=== PATIENT | female | born 1995 | race Caucasian/White ===

== ENCOUNTER 2016-05-25 09:42 | Inpatient (IN) | payer OTHER, MEDICAID ==
[~2016-05-25] VITALS: Ht 167.6 cm; Wt 68.0 kg
[~2016-05-25 09:42] MED LIST: ALBU0.084 IN; ALBUAER3 IN; FLUT1INH6 IN; LEVA1.2512 NEB; MON10T PO; PRED-188 PO
[2016-05-25] MEDS ORDERED: SODIUM CHLORIDE 0.9% 1,000 ML IVB ONE (11:00)
[2016-05-25] MEDS ORDERED: ALBUTEROL SULF 2.5 MG/0.5ML(0.5%) NEB SOLN NEB STA (11:20)
[2016-05-25] MEDS ORDERED: cefTRIAXone 1GM/50ML D5W 50 ML IV ONE (11:30)
[2016-05-25] MEDS ORDERED: methylPREDNISolone SOD SUCC 125 MG/2 ML VL IV ONE (11:30)
[2016-05-25 12:21] LABS: Basophils # (auto) 0.1 uL; Basophils % (auto) 0.5 % (0.0-2.0); Eosinophils # (auto) 0.3 uL; Eosinophils % (auto) 2.2 % (0.0-7.0); Hematocrit 45.5 % (36.0-46.0); Hemoglobin 14.9 g/dL (12.2-16.2); Lymphocytes # (auto) 2.8 uL; Lymphocytes % (auto) 20.1 % (10.0-50.0); Mean Corpuscular Hemoglobin 29.7 pg (28.0-32.0); Mean Corpuscular Hgb Conc. 32.8 g/dL (32.0-36.0); Mean Corpuscular Volume 90.6 fL (80.0-100.0); Mean Platelet Volume 8.4 fL (7.4-10.4); Monocytes # (auto) 1.3 uL; Monocytes % (auto) 9.4 % (0.0-12.0); Neutrophils # (auto) 9.6 uL; Neutrophils % (auto) 67.8 % (37.0-80.0); Platelet Count (auto) 328 10^3/uL (140-450); Red Cell Distribution Width 14.9 % (11.6-16.0); White Blood Cell 14.1 10^3/uL (4.4-10.8)
[2016-05-25 12:25] LABS: INR 1.02 (0.9-1.15); Partial Thromboplastin Time 27.2 sec (22.64-33.71); Prothrombin Time 10.5 sec (9.37-12.3)
[2016-05-25 12:59] LABS: Urine Bilirubin Negative (Negative); Urine Blood Negative /uL (Negative); Urine Color Yellow (Yellow); Urine Glucose Normal (Normal); Urine Ketone TRACE (Negative); Urine Mucus FEW (None Seen); Urine Nitrite Negative (Negative); Urine RBC 1 /hpf (0 - 4); Urine Squamous Epithelial Cell MOD /hpf (<5); Urine Urobilinogen Normal (Negative); Urine pH 5.5 (5.0-8.0)
[2016-05-25 13:31] LABS: Albumin 4.4 g/dL (3.4-5.0); BUN/Creatinine Ratio 15.2; Bilirubin, Total 0.8 mg/dL (0.2-1.0); Total Protein 7.6 g/dL (6.4-8.2)
[2016-05-25 13:32] LABS: Magnesium 2.2 mg/dL (1.6-2.6)
[2016-05-25] MEDS ORDERED: LORazepam 2MG/ML-1ML VIAL IV ONE (13:45)
[2016-05-25] MEDS ORDERED: HYDROcodone-ACET 10/325MG TAB PO ONE (13:45)
[2016-05-25] MEDS ORDERED: TEMAZEPAM 15 MG CAP PO PRN (14:00)
[2016-05-25] MEDS ORDERED: NITROGLYCERIN 0.4 MG SL TAB SL PRN (14:00)
[2016-05-25] MEDS ORDERED: ACETAMINOPHEN 500 MG TAB PO PRN (14:00)
[2016-05-25] MEDS ORDERED: LACTULOSE 20Gm/30ML SOLN PO PRN (14:00)
[2016-05-25] MEDS ORDERED: OSELTAMIVIR 75 MG CAP PO ONE (14:00)
[2016-05-25] MEDS ORDERED: ALBUTEROL SULF 2.5 MG/0.5ML(0.5%) NEB SOLN NEB PRN (14:00)
[2016-05-25] MEDS ORDERED: MORPHINE SULF INJ 2 MG/ML SYRINGE 1ML IV PRN (14:00)
[2016-05-25] MEDS ORDERED: HYDROcodone-ACET 5/325MG TAB PO PRN (14:00)
[2016-05-25] MEDS: SODIUM CHLORIDE 0.9% 1,000 ML IV SCH (14:02)
[2016-05-25] MEDS ORDERED: methylPREDNISolone SOD SUCC 40 MG/ML VL IV ONE (14:15)
[2016-05-25] MEDS ORDERED: ENOXAPARIN SOD 40 MG/0.4 ML SYRINGE SC ONE (14:15)
[2016-05-25 17:00] VITALS: BP 105/68
[2016-05-25] MEDS: LORazepam 0.5 MG TAB PO PRN ×2 (17:28→23:07)
[2016-05-25] MEDS: methylPREDNISolone SOD SUCC 40 MG/ML VL IV SCH ×2 (17:28→23:08)
[2016-05-25] MEDS ORDERED: IPRATROPIUM BROM 0.5 MG/2.5ML INH SOL NEB SCH (18:00)
[2016-05-25] MEDS: ALBUTEROL SULF 2.5 MG/0.5ML(0.5%) NEB SOLN NEB SCH (20:04)
[2016-05-25] MEDS: MORPHINE SULF INJ 2 MG/ML SYRINGE 1ML IV PRN (21:20)
[2016-05-25] MEDS ORDERED: diphenhdrAMINE HCL 25 MG CAP PO PRN (22:15)
[2016-05-25 22:22] VITALS: BP 115/68
[2016-05-26] MEDS: PROMETHAZINE HCL 25 MG/ML 1ML IV PRN ×2 (01:11→09:24)
[2016-05-26] MEDS: MORPHINE SULF INJ 2 MG/ML SYRINGE 1ML IV PRN ×4 (01:11→09:24)
[2016-05-26] MEDS: ALBUTEROL SULF 2.5 MG/0.5ML(0.5%) NEB SOLN NEB SCH ×3 (02:04→12:45)
[2016-05-26 03:32] VITALS: BP 115/68
[2016-05-26 05:12] VITALS: BP 106/58
[2016-05-26] MEDS: methylPREDNISolone SOD SUCC 40 MG/ML VL IV SCH ×2 (05:21→14:06)
[2016-05-26] MEDS: SODIUM CHLORIDE 0.9% 1,000 ML IV SCH (05:22)
[2016-05-26 08:37] VITALS: BP 111/68
[2016-05-26] MEDS ORDERED: cefTRIAXone 1GM/50ML D5W 50 ML IV SCH (09:00)
[2016-05-26] MEDS ORDERED: OSELTAMIVIR 75 MG CAP PO SCH (10:00)
[2016-05-26] MEDS ORDERED: ENOXAPARIN SOD 40 MG/0.4 ML SYRINGE SC SCH (10:00)
[2016-05-26] MEDS ORDERED: BUDESONIDE (INHALATION) 0.5 MG/2 ML NEB NEB SCH (10:00)
[2016-05-26 12:41] VITALS: BP 113/77
[2016-05-26 15:34] VITALS: BP 113/77
== END 2016-05-26 16:31 | disposition home or self-care (01) | DRG 463 ==
LOC: EDBD 09:42 → ER 09:53 → TELE 09:54 → TELE-EAST 15:56
PROVIDERS: ADMIT Internal Medicine; ATTEND Internal Medicine
DX: N39.0 Urinary tract infection, site not specified (principal); J09.X2 Influenza due to identified novel influenza A virus with other respiratory manifestations; J45.901 Unspecified asthma with (acute) exacerbation; F12.10 Cannabis abuse, uncomplicated; F41.9 Anxiety disorder, unspecified; Z80.0 Family history of malignant neoplasm of digestive organs; Z80.1 Family history of malignant neoplasm of trachea, bronchus and lung; Z80.3 Family history of malignant neoplasm of breast; Z80.41 Family history of malignant neoplasm of ovary; Z80.8 Family history of malignant neoplasm of other organs or systems; Z81.8 Family history of other mental and behavioral disorders; Z82.0 Family history of epilepsy and other diseases of the nervous system; Z82.3 Family history of stroke; Z82.49 Family history of ischemic heart disease and other diseases of the circulatory system; Z82.5 Family history of asthma and other chronic lower respiratory diseases; Z83.3 Family history of diabetes mellitus; Z86.711 Personal history of pulmonary embolism; Z83.511 Family history of glaucoma; Z82.62 Family history of osteoporosis; Z84.89 Family history of other specified conditions; Z88.8 Allergy status to other drugs, medicaments and biological substances; Z79.899 Other long term (current) drug therapy
CPT/HCPCS: 36415; 71010; 80053; 81001; 81025; 83735; 85025; 85379; 85610; 85730; 87081; 87086; 87400; 94640; 94761; 96365; 96372; 96375; 96376; J0696

== ENCOUNTER 2016-06-10 09:31 | Inpatient (IN) | payer OTHER, MEDICAID ==
[~2016-06-10] VITALS: Ht 167.6 cm; Wt 71.1 kg
[2016-06-10] MEDS ORDERED: SODIUM CHLORIDE 0.9% 1,000 ML IVB ONE ×2 (11:15→12:27)
[2016-06-10] MEDS ORDERED: ALBUTEROL SULF 2.5 MG/0.5ML(0.5%) NEB SOLN NEB STA (12:27)
[2016-06-10] MEDS ORDERED: methylPREDNISolone SOD SUCC 125 MG/2 ML VL IM ONE (12:30)
[2016-06-10] MEDS ORDERED: IPRATROPIUM BROM 0.5 MG/2.5ML INH SOL NEB ONE (12:30)
[2016-06-10 12:44] LABS: DEFINITIVE VIEW TRANSMISSION; Hematocrit 42.3 % (36.0-46.0); Hemoglobin 13.7 g/dL (12.2-16.2); Mean Corpuscular Hemoglobin 29.6 pg (28.0-32.0); Mean Corpuscular Hgb Conc. 32.4 g/dL (32.0-36.0); Mean Corpuscular Volume 91.3 fL (80.0-100.0); Mean Platelet Volume 8.4 fL (7.4-10.4); Platelet Count (auto) 273 10^3/uL (140-450); Red Cell Distribution Width 14.9 % (11.6-16.0); White Blood Cell 7.9 10^3/uL (4.4-10.8)
[2016-06-10 13:02] LABS: BUN/Creatinine Ratio 13.8; Calcium 8.4 mg/dL (8.5-10.1); Magnesium 2.2 mg/dL (1.6-2.6); Metamyelocytes % 0; Myelocytes % 0; Potassium 3.8 mmol/L (3.5-5.1); Promyelocytes % 0; Reactive Lymphocytes 0
[2016-06-10 13:13] LABS: Bilirubin, Total 0.7 mg/dL (0.2-1.0)
[2016-06-10 13:24] LABS: Urine Bilirubin Negative (Negative); Urine Color Yellow (Yellow); Urine Glucose Normal (Normal); Urine Ketone Negative (Negative); Urine Nitrite Negative (Negative); Urine RBC 904 /hpf (0 - 4); Urine Squamous Epithelial Cell MOD /hpf (<5); Urine Urobilinogen Normal (Negative); Urine pH 5.5 (5.0-8.0)
[2016-06-10 13:25] LABS: Urine Blood 3+ /uL (Negative)
[2016-06-10] MEDS ORDERED: methylPREDNISolone SOD SUCC 125 MG/2 ML VL IV ONE (13:30)
[2016-06-10 13:32] LABS: INR 0.99 (0.9-1.15); Partial Thromboplastin Time 28.9 sec (22.64-33.71); Prothrombin Time 10.2 sec (9.37-12.3)
[2016-06-10] MEDS ORDERED: ONDANSETRON HCL 4 MG/2 ML VIAL IV ONE (13:45)
[2016-06-10] MEDS ORDERED: MORPHINE SULF INJ 2 MG/ML SYRINGE 1ML IV ONE (13:45)
[2016-06-10 13:53] LABS: Platelet Estimate Adequate
[2016-06-10] MEDS ORDERED: cefTRIAXone 1GM/50ML D5W 50 ML IV ONE (14:15)
[2016-06-10] MEDS ORDERED: ACETAMINOPHEN 325 MG TAB PO PRN (15:00)
[2016-06-10] MEDS ORDERED: DOCUSATE SOD 100 MG CAP PO PRN (15:00)
[2016-06-10] MEDS ORDERED: HYDROcodone-ACET 5/325MG TAB PO PRN (15:00)
[2016-06-10] MEDS ORDERED: LORazepam 2MG/ML-1ML VIAL IV ONE (15:15)
[2016-06-10 16:40] VITALS: BP 132/67
[2016-06-10 17:38] VITALS: BP 103/68
[2016-06-10] MEDS: ONDANSETRON HCL 4 MG/2 ML VIAL IV PRN (17:55)
[2016-06-10] MEDS: MORPHINE SULF INJ 2 MG/ML SYRINGE 1ML IV PRN ×2 (17:55→22:11)
[2016-06-10] MEDS ORDERED: FAMOTIDINE 20 MG TAB PO ONE (18:00)
[2016-06-10] MEDS: methylPREDNISolone SOD SUCC 40 MG/ML VL IV SCH (18:40)
[2016-06-10] MEDS: ALBUTEROL SULF 2.5 MG/0.5ML(0.5%) NEB SOLN NEB SCH ×2 (18:58→22:51)
[2016-06-10] MEDS: diphenhdrAMINE HCL 50 MG/1 ML VL IV PRN ×2 (19:59→20:31)
[2016-06-10 21:34] VITALS: BP 108/62
[2016-06-10] MEDS: SODIUM CHLOR 0.9% PF (SALINE LOCK) 10ML VIAL IV SCH (22:11)
[2016-06-10] MEDS: TEMAZEPAM 15 MG CAP PO PRN (22:11)
[2016-06-11] MEDS: LORazepam 0.5 MG TAB PO PRN ×3 (00:53→22:41)
[2016-06-11] MEDS: methylPREDNISolone SOD SUCC 40 MG/ML VL IV SCH ×4 (00:53→19:32)
[2016-06-11 01:25] VITALS: BP 108/62
[2016-06-11] MEDS: ALBUTEROL SULF 2.5 MG/0.5ML(0.5%) NEB SOLN NEB SCH ×6 (02:55→22:12)
[2016-06-11] MEDS: MORPHINE SULF INJ 2 MG/ML SYRINGE 1ML IV PRN ×5 (03:08→21:53)
[2016-06-11] MEDS: ONDANSETRON HCL 4 MG/2 ML VIAL IV PRN ×5 (03:23→21:58)
[2016-06-11] MEDS: diphenhdrAMINE HCL 50 MG/1 ML VL IV PRN ×4 (04:43→22:40)
[2016-06-11 05:18] VITALS: BP 103/71
[2016-06-11 06:23] LABS: Basophils # (auto) 0 uL; Basophils % (auto) 0.2 % (0.0-2.0); Eosinophils # (auto) 0 uL; Eosinophils % (auto) 0.1 % (0.0-7.0); Hematocrit 40.1 % (36.0-46.0); Lymphocytes # (auto) 0.7 uL; Lymphocytes % (auto) 9.4 % (10.0-50.0); Mean Corpuscular Hemoglobin 29.9 pg (28.0-32.0); Mean Corpuscular Hgb Conc. 32.3 g/dL (32.0-36.0); Mean Corpuscular Volume 92.5 fL (80.0-100.0); Mean Platelet Volume 8.8 fL (7.4-10.4); Monocytes # (auto) 0.2 uL; Monocytes % (auto) 2.5 % (0.0-12.0); Neutrophils # (auto) 6.9 uL; Neutrophils % (auto) 87.8 % (37.0-80.0); Platelet Count (auto) 292 10^3/uL (140-450); Red Cell Distribution Width 14.2 % (11.6-16.0); White Blood Cell 7.9 10^3/uL (4.4-10.8)
[2016-06-11 07:01] LABS: BUN/Creatinine Ratio 15.9; Bilirubin, Total 0.5 mg/dL (0.2-1.0); Calcium 9.2 mg/dL (8.5-10.1); Potassium 4.2 mmol/L (3.5-5.1); Total Protein 7.2 g/dL (6.4-8.2)
[2016-06-11] MEDS: cefTRIAXone 1GM/50ML D5W 50 ML IV SCH (08:48)
[2016-06-11 09:00] VITALS: BP 101/59
[2016-06-11] MEDS: MULTIPLE VITAMIN TAB PO SCH (10:21)
[2016-06-11] MEDS: FAMOTIDINE 20 MG TAB PO SCH (10:21)
[2016-06-11 12:58] VITALS: BP 101/75
[2016-06-11] MEDS: SODIUM CHLOR 0.9% PF (SALINE LOCK) 10ML VIAL IV SCH ×2 (13:52→23:11)
[2016-06-11 16:58] VITALS: BP 103/60
[2016-06-11 22:00] VITALS: BP 106/54
[2016-06-11] MEDS: TEMAZEPAM 15 MG CAP PO PRN (23:26)
[2016-06-12] MEDS: methylPREDNISolone SOD SUCC 40 MG/ML VL IV SCH ×3 (01:25→12:22)
[2016-06-12] MEDS: ALBUTEROL SULF 2.5 MG/0.5ML(0.5%) NEB SOLN NEB SCH ×4 (02:10→14:00)
[2016-06-12] MEDS: ONDANSETRON HCL 4 MG/2 ML VIAL IV PRN ×3 (02:35→11:09)
[2016-06-12] MEDS: MORPHINE SULF INJ 2 MG/ML SYRINGE 1ML IV PRN ×3 (02:35→11:09)
[2016-06-12] MEDS: diphenhdrAMINE HCL 50 MG/1 ML VL IV PRN ×2 (04:59→11:09)
[2016-06-12 05:00] VITALS: BP 112/80
[2016-06-12 06:54] LABS: BUN/Creatinine Ratio 18.5; Calcium 8.2 mg/dL (8.5-10.1); Magnesium 2.3 mg/dL (1.6-2.6); Potassium 4.3 mmol/L (3.5-5.1)
[2016-06-12] MEDS: SODIUM CHLOR 0.9% PF (SALINE LOCK) 10ML VIAL IV SCH ×2 (07:00→12:22)
[2016-06-12 08:30] VITALS: BP 101/56
[2016-06-12] MEDS: FAMOTIDINE 20 MG TAB PO SCH (10:16)
[2016-06-12] MEDS: cefTRIAXone 1GM/50ML D5W 50 ML IV SCH (10:16)
[2016-06-12] MEDS: MULTIPLE VITAMIN TAB PO SCH (10:16)
[2016-06-12] MEDS: LORazepam 0.5 MG TAB PO PRN (10:33)
[2016-06-12 11:30] VITALS: BP 101/56
[2016-06-12] MEDS ORDERED: DOXYCYCLINE 100 MG TAB/CAP PO ONE (13:45)
[2016-06-12 14:39] VITALS: BP 118/62
== END 2016-06-12 15:15 | disposition home or self-care (01) | DRG 141 ==
LOC: EDBD 09:31 → ER 09:34 → OVERFLOW 09:35 → EAST 16:43 → CENTRAL 17:20
PROVIDERS: ADMIT Internal Medicine; ATTEND Internal Medicine
DX: J45.901 Unspecified asthma with (acute) exacerbation (principal); N39.0 Urinary tract infection, site not specified; F41.9 Anxiety disorder, unspecified; F12.90 Cannabis use, unspecified, uncomplicated; R31.29 Other microscopic hematuria; Z82.49 Family history of ischemic heart disease and other diseases of the circulatory system; Z88.8 Allergy status to other drugs, medicaments and biological substances; Z98.890 Other specified postprocedural states; Z83.6 Family history of other diseases of the respiratory system
CPT/HCPCS: 36415; 71010; 80048; 80053; 81001; 81025; 83735; 85007; 85025; 85027; 85049; 85610; 85730; 87081; 87086; 87400; 94640; 94644; 96374; 96375; J0696; J2405

== ENCOUNTER 2016-06-19 11:44 | Emergency (ER) | payer MEDICAID ==
[~2016-06-19] VITALS: Ht 167.6 cm; Wt 68.0 kg
[~2016-06-19 11:44] MED LIST changes: -LEVA1.2512 NEB
[2016-06-19] MEDS ORDERED: ALBUTEROL SULF 2.5 MG/0.5ML(0.5%) NEB SOLN HHN STA (13:43)
[2016-06-19] MEDS ORDERED: methylPREDNISolone SOD SUCC 125 MG/2 ML VL IV ONE (13:45)
[2016-06-19 14:17] LABS: Basophils # (auto) 0 uL; Basophils % (auto) 0.2 % (0.0-2.0); DEFINITIVE VIEW TRANSMISSION; Eosinophils # (auto) 0.8 uL; Eosinophils % (auto) 10.7 % (0.0-7.0); Hematocrit 40.2 % (36.0-46.0); Hemoglobin 12.6 g/dL (12.2-16.2); Lymphocytes # (auto) 1.7 uL; Lymphocytes % (auto) 23.7 % (10.0-50.0); Mean Corpuscular Hgb Conc. 31.5 g/dL (32.0-36.0); Mean Corpuscular Volume 92.1 fL (80.0-100.0); Mean Platelet Volume 8.2 fL (7.4-10.4); Monocytes # (auto) 0.8 uL; Monocytes % (auto) 11.4 % (0.0-12.0); Platelet Count (auto) 250 10^3/uL (140-450); Red Cell Distribution Width 14.4 % (11.6-16.0); White Blood Cell 7.3 10^3/uL (4.4-10.8)
[2016-06-19 15:00] LABS: Albumin 3.5 g/dL (3.4-5.0); BUN/Creatinine Ratio 18.3; Bilirubin, Total 0.2 mg/dL (0.2-1.0); Calcium 8.1 mg/dL (8.5-10.1); Magnesium 2.5 mg/dL (1.6-2.6); Potassium 3.9 mmol/L (3.5-5.1); Total Protein 6.2 g/dL (6.4-8.2)
[2016-06-19 16:08] VITALS: BP 124/84
== END 2016-06-19 16:22 | disposition home or self-care (01) ==
LOC: ER 11:44 → EDUNIT# 11:44 → ER 16:15
DX: J45.901 Unspecified asthma with (acute) exacerbation (principal); F12.10 Cannabis abuse, uncomplicated; Z87.440 Personal history of urinary (tract) infections
CPT/HCPCS: 36415; 71010; 80053; 83735; 85025; 94644; 94761; 96374; 99285; J2930

== ENCOUNTER 2016-06-21 20:09 | Inpatient (IN) | payer OTHER, MEDICAID ==
[~2016-06-21] VITALS: Ht 170.2 cm; Wt 71.0 kg
[2016-06-21] MEDS: MAGNESIUM SULFATE 1GM/100ML 100 ML IV SCH ×2 (02:00→02:30)
[2016-06-21] MEDS: SODIUM CHLORIDE 0.9% 1,000 ML IV SCH (02:00)
[2016-06-21] MEDS ORDERED: methylPREDNISolone SOD SUCC 125 MG/2 ML VL IV ONE (20:30)
[2016-06-21] MEDS ORDERED: IPRATROPIUM BROM 0.5 MG/2.5ML INH SOL NEB ONE (20:45)
[2016-06-21] MEDS ORDERED: ALBUTEROL SULF 2.5 MG/0.5ML(0.5%) NEB SOLN NEB ONE (20:45)
[2016-06-21] MEDS ORDERED: methylPREDNISolone SOD SUCC 125 MG/2 ML VL IM ONE (22:00)
[2016-06-21] MEDS ORDERED: LORazepam 2MG/ML-1ML VIAL IM ONE (22:00)
[2016-06-21 22:50] LABS: Basophils # (auto) 0 uL; Basophils % (auto) 0.3 % (0.0-2.0); DEFINITIVE VIEW TRANSMISSION; Eosinophils # (auto) 0.8 uL; Hematocrit 41.4 % (36.0-46.0); Hemoglobin 13.1 g/dL (12.2-16.2); Lymphocytes # (auto) 1.8 uL; Lymphocytes % (auto) 17.4 % (10.0-50.0); Mean Corpuscular Hemoglobin 29.4 pg (28.0-32.0); Mean Corpuscular Hgb Conc. 31.6 g/dL (32.0-36.0); Mean Corpuscular Volume 92.8 fL (80.0-100.0); Mean Platelet Volume 8.2 fL (7.4-10.4); Monocytes # (auto) 0.8 uL; Monocytes % (auto) 7.2 % (0.0-12.0); Neutrophils % (auto) 67.1 % (37.0-80.0); Platelet Count (auto) 243 10^3/uL (140-450); White Blood Cell 10.5 10^3/uL (4.4-10.8)
[2016-06-21 23:06] LABS: Albumin 3.8 g/dL (3.4-5.0); BUN/Creatinine Ratio 13.7; Calcium 8.4 mg/dL (8.5-10.1); INR 0.97 (0.9-1.15); Partial Thromboplastin Time 24.1 sec (22.64-33.71); Potassium 3.2 mmol/L (3.5-5.1)
[2016-06-21 23:09] LABS: Bilirubin, Total 0.2 mg/dL (0.2-1.0); Total Protein 6.5 g/dL (6.4-8.2)
[2016-06-21 23:16] LABS: B-Type Natriuretic Peptide 30.7 pg/mL (0-100)
[2016-06-21 23:20] LABS: Temperature: 23.4 C (20.0-25.0)
[2016-06-21] MEDS ORDERED: LACTULOSE 20Gm/30ML SOLN PO PRN (23:45)
[2016-06-21] MEDS ORDERED: AZITHROMYCIN 500MG/D5W 250ML 250 ML IV ONE (23:45)
[2016-06-21] MEDS ORDERED: cefTRIAXone 1GM/50ML D5W 50 ML IV ONE (23:45)
[2016-06-22] MEDS ORDERED: POTASSIUM CHL 10% (20 MEQ/15ML) ORAL SOLN PO ONE
[2016-06-22] MEDS ORDERED: MAGNESIUM SULFATE 1GM/100ML 100 ML IV ONE ×2 (01:18→03:49)
[2016-06-22] MEDS: ALBUTEROL SULF 2.5 MG/0.5ML(0.5%) NEB SOLN NEB SCH ×5 (02:20→22:10)
[2016-06-22 02:48] VITALS: BP 158/97
[2016-06-22] MEDS: SODIUM CHLORIDE 0.9% 1,000 ML IV SCH (07:33)
[2016-06-22] MEDS ORDERED: methylPREDNISolone SOD SUCC 40 MG/ML VL IV SCH (10:00)
[2016-06-22] MEDS ORDERED: PANTOPRAZOLE SODIUM 40 MG/10 ML VIAL IV SCH (10:00)
[2016-06-22] MEDS ORDERED: ENOXAPARIN SOD 30 MG/0.3 ML SYRINGE SC SCH (10:00)
[2016-06-22] MEDS ORDERED: ENOXAPARIN SOD 40 MG/0.4 ML SYRINGE SC SCH (10:00)
[2016-06-22] MEDS ORDERED: HYDROcodone-ACET 5/325MG TAB PO PRN (12:00)
[2016-06-22] MEDS: cefTRIAXone 1GM/50ML D5W 50 ML IV SCH (12:00)
[2016-06-22] MEDS ORDERED: PANTOPRAZOLE 40 MG TAB PO ONE (12:00)
[2016-06-22] MEDS: MORPHINE SULF INJ 2 MG/ML SYRINGE 1ML IV PRN ×3 (12:13→22:29)
[2016-06-22] MEDS: ONDANSETRON HCL 4 MG/2 ML VIAL IV PRN ×3 (12:14→22:14)
[2016-06-22] MEDS: LORazepam 2MG/ML-1ML VIAL IV PRN ×2 (13:06→20:00)
[2016-06-22] MEDS: methylPREDNISolone SOD SUCC 40 MG/ML VL IV SCH ×2 (13:57→22:29)
[2016-06-22] MEDS ORDERED: diphenhdrAMINE HCL 25 MG CAP PO PRN (14:15)
[2016-06-22 16:50] VITALS: BP 115/77
[2016-06-22] MEDS: BUDESONIDE (INHALATION) 0.5 MG/2 ML NEB NEB SCH (18:42)
[2016-06-22] MEDS ORDERED: cefTRIAXone 1GM/50ML D5W 50 ML IV SCH (21:00)
[2016-06-22] MEDS ORDERED: AZITHROMYCIN 500MG/D5W 250ML 250 ML IV SCH (21:00)
[2016-06-22 22:00] VITALS: BP 115/77
[2016-06-23] MEDS: cefTRIAXone 1GM/50ML D5W 50 ML IV SCH ×2 (01:48→20:49)
[2016-06-23] MEDS: ALBUTEROL SULF 2.5 MG/0.5ML(0.5%) NEB SOLN NEB SCH ×6 (02:35→22:15)
[2016-06-23] MEDS: ONDANSETRON HCL 4 MG/2 ML VIAL IV PRN ×4 (03:09→20:50)
[2016-06-23] MEDS: MORPHINE SULF INJ 2 MG/ML SYRINGE 1ML IV PRN ×4 (03:12→20:49)
[2016-06-23] MEDS: LORazepam 2MG/ML-1ML VIAL IV PRN ×4 (03:42→23:52)
[2016-06-23 05:54] VITALS: BP 100/61
[2016-06-23] MEDS: methylPREDNISolone SOD SUCC 40 MG/ML VL IV SCH ×2 (06:00→22:38)
[2016-06-23] MEDS: BUDESONIDE (INHALATION) 0.5 MG/2 ML NEB NEB SCH ×2 (06:16→18:33)
[2016-06-23 07:00] VITALS: BP 101/67
[2016-06-23 07:30] LABS: Urine Bilirubin Negative (Negative); Urine Blood Negative /uL (Negative); Urine Color Yellow (Yellow); Urine Glucose Normal (Normal); Urine Ketone Negative (Negative); Urine Mucus FEW (None Seen); Urine Nitrite Negative (Negative); Urine RBC 2 /hpf (0 - 4); Urine Squamous Epithelial Cell MOD /hpf (<5); Urine Urobilinogen Normal (Negative)
[2016-06-23] MEDS: PANTOPRAZOLE 40 MG TAB PO SCH (08:38)
[2016-06-23 12:00] VITALS: BP 113/75
[2016-06-23] MEDS: AZITHROMYCIN 250 MG TAB PO SCH (15:10)
[2016-06-23 16:59] VITALS: BP 113/68
[2016-06-23 20:44] VITALS: BP 115/79
[2016-06-24] MEDS: ALBUTEROL SULF 2.5 MG/0.5ML(0.5%) NEB SOLN NEB SCH ×3 (02:15→09:47)
[2016-06-24] MEDS: MORPHINE SULF INJ 2 MG/ML SYRINGE 1ML IV PRN ×3 (02:34→11:14)
[2016-06-24] MEDS: ONDANSETRON HCL 4 MG/2 ML VIAL IV PRN ×3 (02:34→11:13)
[2016-06-24 05:30] VITALS: BP 107/61
[2016-06-24] MEDS: LORazepam 2MG/ML-1ML VIAL IV PRN ×2 (06:13→12:31)
[2016-06-24 08:30] VITALS: BP 101/56
[2016-06-24] MEDS: methylPREDNISolone SOD SUCC 40 MG/ML VL IV SCH (09:32)
[2016-06-24] MEDS: PANTOPRAZOLE 40 MG TAB PO SCH (09:32)
[2016-06-24] MEDS: AZITHROMYCIN 250 MG TAB PO SCH (09:32)
[2016-06-24] MEDS: BUDESONIDE (INHALATION) 0.5 MG/2 ML NEB NEB SCH (09:47)
[2016-06-24 12:52] VITALS: BP 105/59
== END 2016-06-24 13:30 | disposition home or self-care (01) | DRG 141 ==
LOC: EDBD 20:09 → ER 20:12 → TELE 20:13 → EAST 06-22 11:53
PROVIDERS: ADMIT Family Medicine; ATTEND Internal Medicine
DX: J45.902 Unspecified asthma with status asthmaticus (principal); J96.00 Acute respiratory failure, unspecified whether with hypoxia or hypercapnia; F12.10 Cannabis abuse, uncomplicated; F41.9 Anxiety disorder, unspecified; Z82.49 Family history of ischemic heart disease and other diseases of the circulatory system; Z98.890 Other specified postprocedural states; Z87.440 Personal history of urinary (tract) infections
CPT/HCPCS: 36415; 36600; 71010; 80053; 81001; 82805; 83880; 84484; 84702; 85025; 85610; 85730; 87040; 87070; 87081; 87205; 94640; 96361; 96365; 96367; 96372; 96375; 99291; C9113; J0696; J2405

== ENCOUNTER 2017-03-06 12:30 | Inpatient (IN) | payer OTHER ==
[~2017-03-06] VITALS: Ht 167.6 cm; Wt 80.9 kg
[~2017-03-06 12:30] MED LIST changes: +ALPR0.25 PO; -MON10T PO; -PRED-188 PO; +TEMA15CA91 PO; +TIOTCAP IN
[2017-03-06] MEDS ORDERED: ALBUTEROL SULF 2.5 MG/0.5ML(0.5%) NEB SOLN HHN ONE (12:45)
[2017-03-06] MEDS ORDERED: methylPREDNISolone SOD SUCC 125 MG/2 ML VL IV ONE (12:45)
[2017-03-06] MEDS ORDERED: LORazepam 2MG/ML-1ML VIAL IV ONE (13:15)
[2017-03-06 13:18] LABS: Hematocrit 42.4 % (36.0-46.0); Hemoglobin 14.1 g/dL (12.2-16.2); Mean Corpuscular Hemoglobin 30.2 pg (28.0-32.0); Mean Corpuscular Hgb Conc. 33.3 g/dL (32.0-36.0); Mean Corpuscular Volume 90.8 fL (80.0-100.0); Mean Platelet Volume 8.1 fL (6.9-10.8); Platelet Count (auto) 233 10^3/uL (140-450); Red Cell Distribution Width 14.5 % (11.8-14.3); White Blood Cell 7.6 10^3/uL (4.4-10.8)
[2017-03-06 13:35] LABS: Metamyelocytes % 0; Myelocytes % 0; Promyelocytes % 0; Reactive Lymphocytes 0
[2017-03-06 13:38] LABS: Albumin 3.9 g/dL (3.4-5.0); BUN/Creatinine Ratio 17.7; Bilirubin, Total 0.9 mg/dL (0.2-1.0); Calcium 8.6 mg/dL (8.5-10.1); Potassium 3.7 mmol/L (3.5-5.1); Total Protein 7.1 g/dL (6.4-8.2)
[2017-03-06] MEDS ORDERED: AZITHROMYCIN 500MG/ 250ML 250 ML IV ONE (15:00)
[2017-03-06] MEDS ORDERED: LORazepam 0.5 MG TAB PO PRN (15:00)
[2017-03-06] MEDS ORDERED: PANTOPRAZOLE 40 MG TAB PO ONE (15:15)
[2017-03-06 15:56] LABS: Ovalocytes FEW; Platelet Estimate Adequate
[2017-03-06] MEDS: ONDANSETRON HCL 4 MG/2 ML VIAL IV PRN (16:05)
[2017-03-06] MEDS: MORPHINE SULF INJ 2 MG/ML SYRINGE 1ML IV PRN ×2 (16:05→23:18)
[2017-03-06] MEDS ORDERED: diphenhdrAMINE HCL 50 MG/1 ML VL ONE (16:18)
[2017-03-06] MEDS: diphenhdrAMINE HCL 50 MG/1 ML VL IV PRN ×3 (16:42→23:15)
[2017-03-06] MEDS: ALBUTEROL SULF 2.5 MG/0.5ML(0.5%) NEB SOLN NEB SCH (18:53)
[2017-03-06] MEDS: methylPREDNISolone SOD SUCC 40 MG/ML VL IV SCH (21:40)
[2017-03-06 21:45] VITALS: BP 106/60
[2017-03-06 22:09] VITALS: BP 117/64
[2017-03-06] MEDS: BUDESONIDE (INHALATION) 0.5 MG/2 ML NEB NEB SCH (22:51)
[2017-03-07 01:07] VITALS: BP 117/64
[2017-03-07] MEDS: ALBUTEROL SULF 2.5 MG/0.5ML(0.5%) NEB SOLN NEB SCH ×5 (03:12→22:20)
[2017-03-07] MEDS: MORPHINE SULF INJ 2 MG/ML SYRINGE 1ML IV PRN ×6 (03:27→14:49)
[2017-03-07 05:06] VITALS: BP 106/59
[2017-03-07] MEDS: BUDESONIDE (INHALATION) 0.5 MG/2 ML NEB NEB SCH ×2 (05:46→18:57)
[2017-03-07] MEDS: methylPREDNISolone SOD SUCC 40 MG/ML VL IV SCH ×3 (06:04→22:27)
[2017-03-07 09:10] VITALS: BP 105/69
[2017-03-07] MEDS: PANTOPRAZOLE 40 MG TAB PO SCH (09:13)
[2017-03-07] MEDS: AZITHROMYCIN 500MG/ 250ML 250 ML IV SCH (09:13)
[2017-03-07] MEDS: diphenhdrAMINE HCL 50 MG/1 ML VL IV PRN ×3 (09:48→22:27)
[2017-03-07] MEDS: LORazepam 2MG/ML-1ML VIAL IV PRN ×2 (11:44→18:23)
[2017-03-07 12:07] VITALS: BP 103/59
[2017-03-07 13:00] VITALS: BP 120/76
[2017-03-07 17:00] VITALS: BP 100/85
[2017-03-07] MEDS: HYDROcodone-ACET 5/325MG TAB PO PRN (18:23)
[2017-03-08 01:01] VITALS: BP 116/76
[2017-03-08] MEDS: LORazepam 2MG/ML-1ML VIAL IV PRN ×2 (01:45→09:21)
[2017-03-08] MEDS: ALBUTEROL SULF 2.5 MG/0.5ML(0.5%) NEB SOLN NEB SCH ×4 (02:23→13:32)
[2017-03-08 04:47] VITALS: BP 89/51
[2017-03-08 05:00] VITALS: BP 100/63
[2017-03-08] MEDS: methylPREDNISolone SOD SUCC 40 MG/ML VL IV SCH (05:32)
[2017-03-08] MEDS: diphenhdrAMINE HCL 50 MG/1 ML VL IV PRN ×2 (05:41→11:29)
[2017-03-08 09:00] VITALS: BP 106/53
[2017-03-08] MEDS: BUDESONIDE (INHALATION) 0.5 MG/2 ML NEB NEB SCH (09:13)
[2017-03-08] MEDS: ONDANSETRON HCL 4 MG/2 ML VIAL IV PRN (09:21)
[2017-03-08] MEDS: HYDROcodone-ACET 5/325MG TAB PO PRN (10:08)
[2017-03-08] MEDS ORDERED: POTASSIUM CHL 20 Meq TABLET PO ONE (11:00)
[2017-03-08] MEDS ORDERED: FUROSEMIDE 20 MG/2 ML VIAL IV ONE (11:00)
[2017-03-08] MEDS: AZITHROMYCIN 500MG/ 250ML 250 ML IV SCH (11:28)
[2017-03-08] MEDS: PANTOPRAZOLE 40 MG TAB PO SCH (11:29)
== END 2017-03-08 14:04 | disposition home or self-care (01) | DRG 133 ==
LOC: EDBD 12:30 → ER 12:30 → OVERFLOW 12:31 → CENTRAL 20:15
PROVIDERS: ADMIT Internal Medicine; ATTEND Internal Medicine
DX: J96.00 Acute respiratory failure, unspecified whether with hypoxia or hypercapnia (principal); J45.901 Unspecified asthma with (acute) exacerbation; F41.9 Anxiety disorder, unspecified; F12.90 Cannabis use, unspecified, uncomplicated; Z91.19 Patient's noncompliance with other medical treatment and regimen
CPT/HCPCS: 36415; 71010; 80053; 81025; 85007; 85027; 93005; 94640; 94644; 94761; 96365; 96375; J2405

== ENCOUNTER 2017-03-09 12:13 | Inpatient (IN) | payer OTHER ==
[~2017-03-09] VITALS: Ht 167.6 cm; Wt 80.0 kg
[2017-03-09] VITALS (12 sets, daily range): BP systolic 102–146; BP diastolic 54–77
[~2017-03-09 12:13] MED LIST changes: -ALPR0.25 PO; -TEMA15CA91 PO
[2017-03-09] MEDS ORDERED: ALBUTEROL SULF 2.5 MG/0.5ML(0.5%) NEB SOLN NEB ONE (12:15)
[2017-03-09] MEDS ORDERED: SODIUM CHLORIDE 0.9% 1,000 ML IV ONE (12:22)
[2017-03-09] MEDS ORDERED: IPRATROPIUM BROM 0.5 MG/2.5ML INH SOL NEB ONE (12:30)
[2017-03-09] MEDS ORDERED: methylPREDNISolone SOD SUCC 125 MG/2 ML VL IV ONE (12:30)
[2017-03-09] MEDS ORDERED: LORazepam 2MG/ML-1ML VIAL IV ONE (12:45)
[2017-03-09] MEDS ORDERED: PATIENTS OWN MEDICATION (XOPENEX 1.25 MG) NEB STA (13:21)
[2017-03-09] MEDS ORDERED: KETOROLAC TROMETH 30 MG/ML 1ML VIAL IV ONE (13:30)
[2017-03-09] MEDS ORDERED: LEVALBUTEROL HCL 1.25 MG/3 ML NEB IN ONE (13:30)
[2017-03-09] MEDS ORDERED: ETOMIDATE (2MG/ML) 20ML VIAL IV ONE ×3 (13:56→15:00)
[2017-03-09] MEDS ORDERED: SUCCINYLCHOLINE CHLORIDE 20 MG/ML 10ML VIAL IV ONE ×2 (13:57→14:00)
[2017-03-09] MEDS ORDERED: MIDAZOLAM DRIP 50 mg/50mL 50 ML IV ONE (13:57)
[2017-03-09] MEDS ORDERED: ONDANSETRON HCL 4 MG/2 ML VIAL IV ONE (14:00)
[2017-03-09] MEDS: MIDAZOLAM DRIP 50 mg/50mL 50 ML IV SCH (14:18)
[2017-03-09] MEDS ORDERED: PROPOFOL 100 ML IV ONE (14:23)
[2017-03-09] MEDS: PROPOFOL 100 ML IV SCH (14:30)
[2017-03-09] MEDS ORDERED: NITROGLYCERIN 0.4 MG SL TAB SL PRN (15:00)
[2017-03-09] MEDS: SODIUM CHLORIDE 0.9% 1,000 ML IV SCH (15:00)
[2017-03-09] MEDS ORDERED: LORazepam 2MG/ML-1ML VIAL IV PRN (15:00)
[2017-03-09] MEDS ORDERED: MORPHINE SULF INJ 2 MG/ML SYRINGE 1ML IV PRN (15:00)
[2017-03-09] MEDS ORDERED: HYDROmorphone HCL 2 MG/ML VL IV PRN (15:00)
[2017-03-09] MEDS ORDERED: CLINDAMYCIN 900MG IV 50 ML IV ONE (15:30)
[2017-03-09] MEDS ORDERED: cefTRIAXone 1GM/50ML D5W 50 ML IV ONE (15:30)
[2017-03-09] MEDS: PROMETHAZINE HCL 25 MG/ML 1ML IV PRN (15:30)
[2017-03-09 16:15] LABS: Allen Test Modified; Base Excess -0.2 mmol/L (-2.0-2.0); Blood COHb 0.3 % (0.5-1.5); Blood MetHb 0.5 % (0.0-1.5); HCO3 25.2 mmol/L (22-26.0); MODE VENT - A/C; O2Hb 98.2 % (94.0-97.0); PCO2 43.9 mmHg (35.0-45.0); PCO2(T) 43.9 mmHg (35.0-45.0); PIP 21; PO2 495.6 mmHg (80.0-100.0); PO2(T) 495.6 mmHg (80.0-100.0); Room 1009-ERT; Sample Type Arterial; Spont Vt 492; pH 7.377 (7.350-7.450)
[2017-03-09] MEDS: AZITHROMYCIN 500MG/ 250ML 250 ML IV SCH (17:15)
[2017-03-09] MEDS: methylPREDNISolone SOD SUCC 40 MG/ML VL IV SCH (17:53)
[2017-03-09] MEDS: ALBUTEROL SULF 2.5 MG/0.5ML(0.5%) NEB SOLN NEB SCH (18:26)
[2017-03-09 19:48] LABS: Eosinophils # (auto) 0 uL; Eosinophils % (auto) 0.1 % (0.0-7.0); Hematocrit 34.9 % (36.0-46.0); Hemoglobin 12.4 g/dL (12.2-16.2); Mean Corpuscular Hemoglobin 34.3 pg (28.0-32.0); Monocytes # (auto) 0.2 uL; White Blood Cell 7.1 10^3/uL (4.4-10.8)
[2017-03-09 19:49] LABS: Basophils # (auto) 0.1 uL; Basophils % (auto) 1.5 % (0.0-2.0); Lymphocytes # (auto) 1.1 uL; Lymphocytes % (auto) 14.9 % (10.0-50.0); Mean Corpuscular Hgb Conc. 35.5 g/dL (32.0-36.0); Mean Corpuscular Volume 96.5 fL (80.0-100.0); Mean Platelet Volume 9.9 fL (6.9-10.8); Monocytes % (auto) 3.2 % (0.0-12.0); Neutrophils # (auto) 5.7 uL; Neutrophils % (auto) 80.3 % (37.0-80.0); Platelet Count (auto) 277 10^3/uL (140-450)
[2017-03-09 20:04] LABS: Albumin 3.2 g/dL (3.4-5.0); Alkaline Phosphatase 49 U/L (45-117); Anion Gap 12 (5-15); Aspartate Aminotransferase 20 U/L (15-37); BUN/Creatinine Ratio 21.3; Bilirubin, Total 0.5 mg/dL (0.2-1.0); Blood Urea Nitrogen 20 mg/dL (7-18); Carbon Dioxide 23 mmol/L (21-32); Chloride 99 mmol/L (98-107); GFR African American 97 mL/min; GFR Non-African American 80 mL/min; Glucose 201 mg/dL (74-106); Potassium 4.5 mmol/L (3.5-5.1); Sodium 134 mmol/L (136-145)
[2017-03-09 20:07] LABS: INR 0.89 (0.9-1.15); Partial Thromboplastin Time 25.3 sec (22.64-33.71); Prothrombin Time 9.7 sec (9.37-12.3)
[2017-03-09 20:10] LABS: Total Protein 6.1 g/dL (6.4-8.2)
[2017-03-09 20:35] LABS: B-Type Natriuretic Peptide 5.25 pg/mL (0-100)
[2017-03-09 20:36] LABS: Temperature: 23.3 C (20.0-25.0)
[2017-03-10] VITALS (106 sets, daily range): BP systolic 97–160; BP diastolic 48–100
[2017-03-10] MEDS: MIDAZOLAM DRIP 50 mg/50mL 50 ML IV SCH ×2 (02:10→08:15)
[2017-03-10] MEDS: PROPOFOL 100 ML IV SCH ×4 (04:10→18:27)
[2017-03-10] MEDS: SODIUM CHLORIDE 0.9% 1,000 ML IV SCH (04:18)
[2017-03-10 04:20] LABS: Basophils # (auto) 0 uL; Eosinophils # (auto) 0 uL; Hematocrit 36.1 % (36.0-46.0); Lymphocytes # (auto) 0.5 uL; Lymphocytes % (auto) 9.4 % (10.0-50.0); Mean Corpuscular Hemoglobin 30.7 pg (28.0-32.0); Mean Corpuscular Hgb Conc. 33.3 g/dL (32.0-36.0); Mean Corpuscular Volume 92.3 fL (80.0-100.0); Monocytes # (auto) 0.3 uL; Monocytes % (auto) 6.3 % (0.0-12.0); Neutrophils # (auto) 4.5 uL; Neutrophils % (auto) 84.3 % (37.0-80.0); Nucleated Red Blood Cells % 0.1 %; Platelet Count (auto) 214 10^3/uL (140-450); Red Cell Distribution Width 14.3 % (11.8-14.3); White Blood Cell 5.3 10^3/uL (4.4-10.8)
[2017-03-10 04:27] LABS: Potassium 4.5 mmol/L (3.5-5.1)
[2017-03-10 04:31] LABS: Albumin 3.2 g/dL (3.4-5.0); Calcium 7.6 mg/dL (8.5-10.1)
[2017-03-10 04:34] LABS: Bilirubin, Total 0.2 mg/dL (0.2-1.0); Total Protein 5.8 g/dL (6.4-8.2)
[2017-03-10] MEDS: methylPREDNISolone SOD SUCC 40 MG/ML VL IV SCH ×4 (06:00→17:37)
[2017-03-10] MEDS: ALBUTEROL SULF 2.5 MG/0.5ML(0.5%) NEB SOLN NEB SCH ×4 (06:13→18:06)
[2017-03-10] MEDS: cefTRIAXone 1GM/50ML D5W 50 ML IV SCH (08:22)
[2017-03-10] MEDS: AZITHROMYCIN 500MG/ 250ML 250 ML IV SCH (09:41)
[2017-03-10] MEDS: ENOXAPARIN SOD 40 MG/0.4 ML SYRINGE SC SCH (09:41)
[2017-03-10] MEDS ORDERED: FUROSEMIDE 20 MG/2 ML VIAL IV ONE (14:30)
[2017-03-10] MEDS ORDERED: Fibersource Hn 1 Liter GT SCH (14:30)
[2017-03-10] MEDS ORDERED: POTASSIUM CHL 10% (20 MEQ/15ML) 15ml ORAL SOLN GT ONE (14:30)
[2017-03-10] MEDS ORDERED: PANTOPRAZOLE 40 MG/10 ML VIAL IV ONE (14:30)
[2017-03-11] VITALS (103 sets, daily range): BP systolic 94–149; BP diastolic 44–107
[2017-03-11] MEDS: ALBUTEROL SULF 2.5 MG/0.5ML(0.5%) NEB SOLN NEB SCH ×4 (00:04→19:01)
[2017-03-11 04:27] LABS: BUN/Creatinine Ratio 40.3; Calcium 8.4 mg/dL (8.5-10.1); Magnesium 3.1 mg/dL (1.6-2.6); Potassium 4.3 mmol/L (3.5-5.1)
[2017-03-11] MEDS: methylPREDNISolone SOD SUCC 40 MG/ML VL IV SCH ×4 (06:00→18:23)
[2017-03-11] MEDS: cefTRIAXone 1GM/50ML D5W 50 ML IV SCH (09:00)
[2017-03-11 09:31] LABS: Allen Test Modified; Base Excess -0.2 mmol/L (-2.0-2.0); Blood 02Sat 70.2 % (96-100); Blood COHb 0.5 % (0.5-1.5); Blood MetHb 0.4 % (0.0-1.5); HCO3 27.2 mmol/L (22-26.0); HHb 29.5 % (0.0-5.0); MODE VENT - CPAP; O2Hb 69.6 % (94.0-97.0); PO2 43.7 mmHg (80.0-100.0); PO2(T) 43.7 mmHg (80.0-100.0); Pressure Support 8; Sample Type Arterial; pH 7.305 (7.350-7.450)
[2017-03-11] MEDS: fentaNYL Drip 2500mCg/250mlNS 250 ML IV SCH (09:47)
[2017-03-11] MEDS ORDERED: fentaNYL Drip 2500mCg/250mlNS 250 ML IV ONE (09:50)
[2017-03-11] MEDS ORDERED: LORazepam 2MG/ML-1ML VIAL ONE (09:52)
[2017-03-11] MEDS: MIDAZOLAM DRIP 50 mg/50mL 50 ML IV SCH ×4 (10:00→22:00)
[2017-03-11] MEDS: PANTOPRAZOLE 40 MG/10 ML VIAL IV SCH (10:17)
[2017-03-11] MEDS: AZITHROMYCIN 500MG/ 250ML 250 ML IV SCH (10:17)
[2017-03-11] MEDS: ENOXAPARIN SOD 40 MG/0.4 ML SYRINGE SC SCH (10:18)
[2017-03-11] MEDS: PROPOFOL 100 ML IV SCH (10:37)
[2017-03-11] MEDS ORDERED: DEXMEDETOMIDINE HCL 400 MCG in SODIUM CHL 0.9% 96 ML IV SCH (15:51)
[2017-03-11] MEDS ORDERED: diphenhdrAMINE HCL 50 MG/1 ML VL IV PRN (17:15)
[2017-03-11] MEDS ORDERED: diphenhdrAMINE HCL 50 MG/1 ML VL ONE (17:16)
[2017-03-12] VITALS (81 sets, daily range): BP systolic 100–160; BP diastolic 54–120
[2017-03-12] MEDS: ALBUTEROL SULF 2.5 MG/0.5ML(0.5%) NEB SOLN NEB SCH ×4 (00:26→18:29)
[2017-03-12 04:06] LABS: Basophils # (auto) 0 uL; Basophils % (auto) 0.1 % (0.0-2.0); Eosinophils # (auto) 0 uL; Hematocrit 36.1 % (36.0-46.0); Lymphocytes # (auto) 0.7 uL; Lymphocytes % (auto) 8.6 % (10.0-50.0); Mean Corpuscular Hemoglobin 30.4 pg (28.0-32.0); Mean Corpuscular Hgb Conc. 33.3 g/dL (32.0-36.0); Mean Corpuscular Volume 91.5 fL (80.0-100.0); Monocytes # (auto) 0.8 uL; Monocytes % (auto) 8.9 % (0.0-12.0); Neutrophils # (auto) 7.1 uL; Neutrophils % (auto) 82.4 % (37.0-80.0); Platelet Count (auto) 232 10^3/uL (140-450); Red Cell Distribution Width 14.5 % (11.8-14.3); White Blood Cell 8.6 10^3/uL (4.4-10.8)
[2017-03-12] MEDS: ALBUTEROL SULF 2.5 MG/0.5ML(0.5%) NEB SOLN NEB PRN ×2 (04:25→22:33)
[2017-03-12 04:32] LABS: Albumin 3.3 g/dL (3.4-5.0); Bilirubin, Total 0.3 mg/dL (0.2-1.0); Calcium 7.9 mg/dL (8.5-10.1); Potassium 4.7 mmol/L (3.5-5.1); Total Protein 6.3 g/dL (6.4-8.2)
[2017-03-12] MEDS ORDERED: MORPHINE SULFATE INJECTION 1 ML ONE (05:01)
[2017-03-12] MEDS: methylPREDNISolone SOD SUCC 40 MG/ML VL IV SCH ×5 (06:00→23:17)
[2017-03-12] MEDS: LORazepam 2MG/ML-1ML VIAL IV PRN ×4 (06:38→23:17)
[2017-03-12] MEDS: PANTOPRAZOLE 40 MG/10 ML VIAL IV SCH (09:38)
[2017-03-12] MEDS: cefTRIAXone 1GM/50ML D5W 50 ML IV SCH (09:38)
[2017-03-12] MEDS: ENOXAPARIN SOD 40 MG/0.4 ML SYRINGE SC SCH (09:39)
[2017-03-12] MEDS: fentaNYL Drip 2500mCg/250mlNS 250 ML IV SCH (09:39)
[2017-03-12] MEDS: AZITHROMYCIN 500MG/ 250ML 250 ML IV SCH (09:39)
[2017-03-12 10:15] LABS: Allen Test Yes; Blood 02Sat 94.5 % (96-100); Blood COHb 0.1 % (0.5-1.5); Blood MetHb 0.2 % (0.0-1.5); HCO3 24.1 mmol/L (22-26.0); HHb 5.5 % (0.0-5.0); MODE VENT - A/C; O2Hb 94.2 % (94.0-97.0); PCO2 41.9 mmHg (35.0-45.0); PCO2(T) 41.9 mmHg (35.0-45.0); PO2 77.6 mmHg (80.0-100.0); PO2(T) 77.6 mmHg (80.0-100.0); Sample Type Arterial; pH 7.378 (7.350-7.450)
[2017-03-12 11:57] LABS: Allen Test Yes; Base Excess -1.7 mmol/L (-2.0-2.0); Blood 02Sat 96.9 % (96-100); Blood COHb 0.2 % (0.5-1.5); Blood MetHb 0.4 % (0.0-1.5); HCO3 25.2 mmol/L (22-26.0); HHb 3.1 % (0.0-5.0); MODE VENT - CPAP; O2Hb 96.3 % (94.0-97.0); PCO2 51.5 mmHg (35.0-45.0); PCO2(T) 51.5 mmHg (35.0-45.0); PO2 109.1 mmHg (80.0-100.0); PO2(T) 109.1 mmHg (80.0-100.0); Pressure Support 8; Sample Type Arterial; pH 7.308 (7.350-7.450)
[2017-03-12] MEDS ORDERED: KETOROLAC TROMETH 30 MG/ML 1ML VIAL IV ONE (13:30)
[2017-03-12] MEDS: MORPHINE SULFATE 10 MG/ML INJ 1ML SDV IV PRN ×2 (16:44→20:52)
[2017-03-12 17:32] LABS: Urine Bilirubin Negative (Negative); Urine Blood 3+ /uL (Negative); Urine Color Red (Yellow); Urine Glucose Normal (Normal); Urine Ketone Negative (Negative); Urine Nitrite Negative (Negative); Urine RBC 4504 /hpf (0 - 4); Urine Urobilinogen Normal (Negative)
[2017-03-12] MEDS ORDERED: guaiFENesin-DEXTROMETHORPHAN 5ML SYR GT PRN (22:00)
[2017-03-12] MEDS: diphenhdrAMINE HCL 50 MG/1 ML VL IV PRN (23:50)
[2017-03-12] MEDS: KETOROLAC TROMETH 30 MG/ML 1ML VIAL IV PRN (23:59)
[2017-03-13] VITALS (7 sets, daily range): BP systolic 109–136; BP diastolic 64–103
[2017-03-13] MEDS: PROMETHAZINE HCL 25 MG/ML 1ML IV PRN ×5 (00:23→21:45)
[2017-03-13] MEDS: ALBUTEROL SULF 2.5 MG/0.5ML(0.5%) NEB SOLN NEB SCH ×4 (01:33→17:00)
[2017-03-13] MEDS: MORPHINE SULFATE 10 MG/ML INJ 1ML SDV IV PRN ×2 (01:48→06:07)
[2017-03-13] MEDS: LORazepam 2MG/ML-1ML VIAL IV PRN ×2 (04:12→08:54)
[2017-03-13] MEDS: diphenhdrAMINE HCL 50 MG/1 ML VL IV PRN ×3 (04:12→23:23)
[2017-03-13 05:23] LABS: Calcium 8.2 mg/dL (8.5-10.1); Potassium 4.4 mmol/L (3.5-5.1)
[2017-03-13 05:26] LABS: BUN/Creatinine Ratio 37.1
[2017-03-13] MEDS: methylPREDNISolone SOD SUCC 40 MG/ML VL IV SCH ×3 (06:06→21:44)
[2017-03-13] MEDS: cefTRIAXone 1GM/50ML D5W 50 ML IV SCH (08:59)
[2017-03-13] MEDS ORDERED: AZITHROMYCIN 250 MG TAB PO ONE (10:45)
[2017-03-13] MEDS: HYDROcodone-ACET 5/325MG TAB PO PRN ×2 (15:10→21:44)
[2017-03-13] MEDS: LORazepam 0.5 MG TAB PO PRN ×2 (15:11→23:23)
[2017-03-13] MEDS: KETOROLAC TROMETH 30 MG/ML 1ML VIAL IV PRN (18:03)
[2017-03-14] MEDS: KETOROLAC TROMETH 30 MG/ML 1ML VIAL IV PRN ×4 (00:33→22:03)
[2017-03-14] MEDS: ALBUTEROL SULF 2.5 MG/0.5ML(0.5%) NEB SOLN NEB SCH ×4 (00:33→20:10)
[2017-03-14] MEDS ORDERED: EPINEPHrine HCL 0.5 ML NEB ONE (00:35)
[2017-03-14] MEDS ORDERED: ALBUTEROL SULF 2.5 MG/0.5ML(0.5%) NEB SOLN NEB ONE (01:00)
[2017-03-14] MEDS: PROMETHAZINE HCL 25 MG/ML 1ML IV PRN ×5 (02:51→22:03)
[2017-03-14] MEDS: diphenhdrAMINE HCL 50 MG/1 ML VL IV PRN ×5 (03:35→22:02)
[2017-03-14 05:00] VITALS: BP 124/69
[2017-03-14] MEDS: methylPREDNISolone SOD SUCC 40 MG/ML VL IV SCH ×2 (06:21→22:02)
[2017-03-14] MEDS: cefTRIAXone 1GM/50ML D5W 50 ML IV SCH (08:12)
[2017-03-14] MEDS: AZITHROMYCIN 250 MG TAB PO SCH (08:31)
[2017-03-14 08:59] VITALS: BP 126/76
[2017-03-14] MEDS ORDERED: PANTOPRAZOLE 40 MG TAB PO ONE (10:45)
[2017-03-14] MEDS ORDERED: THROAT LOZENGES(CEPASTAT) MT PRN (10:45)
[2017-03-14] MEDS: NYSTATIN (MOUTH-THROAT) 500,000 UNITS/5 ML SUSP MT SCH ×3 (11:18→22:02)
[2017-03-14 13:00] VITALS: BP 116/67
[2017-03-14 17:00] VITALS: BP 120/72
[2017-03-14 22:56] VITALS: BP 114/87
[2017-03-15] MEDS: PROMETHAZINE HCL 25 MG/ML 1ML IV PRN ×5 (03:35→20:53)
[2017-03-15] MEDS: diphenhdrAMINE HCL 50 MG/1 ML VL IV PRN ×5 (03:35→20:53)
[2017-03-15 05:10] VITALS: BP 123/72
[2017-03-15] MEDS: NYSTATIN (MOUTH-THROAT) 500,000 UNITS/5 ML SUSP MT SCH ×4 (05:27→22:53)
[2017-03-15] MEDS: KETOROLAC TROMETH 30 MG/ML 1ML VIAL IV PRN ×3 (05:27→20:53)
[2017-03-15] MEDS: ALBUTEROL SULF 2.5 MG/0.5ML(0.5%) NEB SOLN NEB SCH ×4 (07:03→18:56)
[2017-03-15] MEDS: cefTRIAXone 1GM/50ML D5W 50 ML IV SCH (08:16)
[2017-03-15 09:01] VITALS: BP 111/58
[2017-03-15] MEDS: AZITHROMYCIN 250 MG TAB PO SCH (10:28)
[2017-03-15] MEDS: PANTOPRAZOLE 40 MG TAB PO SCH (10:28)
[2017-03-15] MEDS: methylPREDNISolone SOD SUCC 40 MG/ML VL IV SCH (10:29)
[2017-03-15 12:49] VITALS: BP 119/74
[2017-03-15 16:53] VITALS: BP 113/66
[2017-03-15 21:29] VITALS: BP 113/66
[2017-03-15 22:00] VITALS: BP 115/78
[2017-03-16] MEDS: PROMETHAZINE HCL 25 MG/ML 1ML IV PRN ×3 (01:41→13:07)
[2017-03-16] MEDS: diphenhdrAMINE HCL 50 MG/1 ML VL IV PRN ×3 (01:41→13:07)
[2017-03-16] MEDS: KETOROLAC TROMETH 30 MG/ML 1ML VIAL IV PRN ×2 (04:45→13:07)
[2017-03-16 05:00] VITALS: BP 95/54
[2017-03-16] MEDS: ALBUTEROL SULF 2.5 MG/0.5ML(0.5%) NEB SOLN NEB SCH ×3 (06:40→13:52)
[2017-03-16] MEDS: NYSTATIN (MOUTH-THROAT) 500,000 UNITS/5 ML SUSP MT SCH ×2 (06:43→12:00)
[2017-03-16 09:18] VITALS: BP 105/69
[2017-03-16] MEDS: cefTRIAXone 1GM/50ML D5W 50 ML IV SCH (09:36)
[2017-03-16] MEDS: AZITHROMYCIN 250 MG TAB PO SCH (09:37)
[2017-03-16] MEDS: PANTOPRAZOLE 40 MG TAB PO SCH (09:37)
[2017-03-16] MEDS ORDERED: predniSONE 20 MG TAB PO SCH (10:00)
[2017-03-16 12:42] VITALS: BP 104/62
== END 2017-03-16 15:05 | disposition still patient (30) | DRG 141 ==
LOC: ER 12:13 → EDBD 12:13 → TELE 12:14 → ICU WEST 21:45 → DOU IN ICU 03-12 21:52 → EAST 03-13 14:35
PROVIDERS: ADMIT Internal Medicine; ATTEND Internal Medicine
PROC: 5A1945Z Respiratory Ventilation, 24-96 Consecutive Hours (ICD-10-PCS; principal; 2017-03-09)
PROC: 0BH17EZ Insertion of Endotracheal Airway into Trachea, Via Natural or Artificial Opening (ICD-10-PCS; 2017-03-09)
DX: J45.901 Unspecified asthma with (acute) exacerbation (principal); J96.01 Acute respiratory failure with hypoxia; F41.9 Anxiety disorder, unspecified; Z80.1 Family history of malignant neoplasm of trachea, bronchus and lung; Z80.3 Family history of malignant neoplasm of breast; Z80.41 Family history of malignant neoplasm of ovary; Z80.8 Family history of malignant neoplasm of other organs or systems; Z81.8 Family history of other mental and behavioral disorders; Z82.0 Family history of epilepsy and other diseases of the nervous system; Z82.3 Family history of stroke; Z82.49 Family history of ischemic heart disease and other diseases of the circulatory system; Z82.5 Family history of asthma and other chronic lower respiratory diseases; Z83.3 Family history of diabetes mellitus; Z82.62 Family history of osteoporosis; Z86.711 Personal history of pulmonary embolism; Z86.718 Personal history of other venous thrombosis and embolism; Z91.19 Patient's noncompliance with other medical treatment and regimen; Z80.42 Family history of malignant neoplasm of prostate; Z84.1 Family history of disorders of kidney and ureter; Z84.0 Family history of diseases of the skin and subcutaneous tissue; Z88.8 Allergy status to other drugs, medicaments and biological substances; Z91.010 Allergy to peanuts
CPT/HCPCS: 31500; 36415; 36556; 36600; 51702; 71010; 80048; 80053; 80307; 81001; 82805; 83735; 83880; 84484; 84702; 85025; 85610; 85730; 87070; 87081; 87086; 87205; 94002; 94003; 94640; 94644; 96361; 96365; 96375; 99291; C9113; J0330; J0696; J1885; J2250; J2405; J2704; J3010; J3490

== ENCOUNTER 2017-05-17 11:31 | Emergency (ER) | payer OTHER ==
[~2017-05-17] VITALS: Ht 167.6 cm; Wt 68.0 kg
[2017-05-17] MEDS ORDERED: MORPHINE SULFATE 4 MG/ML SYR/VIAL IV ONE (12:45)
[2017-05-17] MEDS ORDERED: ONDANSETRON HCL 4 MG/2 ML VIAL IV ONE (12:45)
[2017-05-17] MEDS ORDERED: methylPREDNISolone SOD SUCC 125 MG/2 ML VL IV ONE (12:45)
[2017-05-17] MEDS ORDERED: ALBUTEROL SULF 2.5 MG/0.5ML(0.5%) NEB SOLN HHN ONE (12:45)
[2017-05-17 13:53] VITALS: BP 117/75
== END 2017-05-17 14:01 | disposition home or self-care (01) ==
LOC: EDBD 11:31 → ER 11:31
DX: J45.909 Unspecified asthma, uncomplicated (principal)
CPT/HCPCS: 94640; 94644

== ENCOUNTER 2017-06-11 08:50 | Inpatient (IN) | payer OTHER ==
[~2017-06-11] VITALS: Ht 167.6 cm; Wt 81.2 kg
[2017-06-11] MEDS ORDERED: ALBUTEROL SULF 2.5 MG/0.5ML(0.5%) NEB SOLN NEB ONE (09:00)
[2017-06-11] MEDS ORDERED: MORPHINE SULFATE 10 MG/ML INJ 1ML SDV IV ONE (09:30)
[2017-06-11] MEDS ORDERED: methylPREDNISolone SOD SUCC 125 MG/2 ML VL IV ONE (09:30)
[2017-06-11] MEDS ORDERED: ONDANSETRON HCL 4 MG/2 ML VIAL IV ONE (09:30)
[2017-06-11] MEDS ORDERED: SODIUM CHLORIDE 0.9% 1,000 ML IV ONE (09:30)
[2017-06-11] MEDS ORDERED: cefTRIAXone 1GM/10ml IVPUSH 10 ML IV ONE (09:30)
[2017-06-11] MEDS ORDERED: MAGNESIUM SULFATE 1GM/100ML 100 ML IV ONE (09:45)
[2017-06-11] MEDS ORDERED: LORazepam 2MG/ML-1ML VIAL IV ONE (09:45)
[2017-06-11 11:25] LABS: Basophils # (auto) 0 uL; Basophils % (auto) 0.4 % (0.0-2.0); Eosinophils # (auto) 0.2 uL; Eosinophils % (auto) 2.6 % (0.0-7.0); Hematocrit 33.1 % (36.0-46.0); Hemoglobin 11.1 g/dL (12.2-16.2); Lymphocytes # (auto) 0.6 uL; Lymphocytes % (auto) 7.7 % (10.0-50.0); Mean Corpuscular Hemoglobin 30.6 pg (28.0-32.0); Mean Corpuscular Hgb Conc. 33.6 g/dL (32.0-36.0); Mean Corpuscular Volume 91.1 fL (80.0-100.0); Monocytes # (auto) 0.5 uL; Monocytes % (auto) 6.4 % (0.0-12.0); Neutrophils # (auto) 6.3 uL; Neutrophils % (auto) 82.9 % (37.0-80.0); Nucleated Red Blood Cells % 0.1 %; Platelet Count (auto) 211 10^3/uL (140-450); Red Blood Cells 3.63 10^6/uL (4.0-5.20); Red Cell Distribution Width 14.4 % (11.8-14.3); White Blood Cell 7.5 10^3/uL (4.4-10.8)
[2017-06-11 11:46] LABS: Albumin 2.9 g/dL (3.4-5.0); BUN/Creatinine Ratio 18.3; Bilirubin, Total 0.3 mg/dL (0.2-1.0); Calcium 6.2 mg/dL (8.5-10.1); Total Protein 5.2 g/dL (6.4-8.2)
[2017-06-11 12:15] LABS: Potassium 2.2 mmol/L (3.5-5.1)
[2017-06-11] MEDS ORDERED: POTASSIUM CHLORIDE 20 MEQ, LIDOCAINE 1% (LOCAL ANESTH.) 2 ML in SODIUM CHL 0.9% 100 ML IV ONE (12:15)
[2017-06-11] MEDS ORDERED: POTASSIUM CHL 10 Meq TABLET PO ONE (12:15)
[2017-06-11] MEDS ORDERED: PROMETHAZINE HCL 25 MG/ML 1ML IV ONE (12:45)
[2017-06-11] MEDS ORDERED: KETOROLAC TROMETH 30 MG/ML 1ML VIAL IV ONE (12:45)
[2017-06-11] MEDS ORDERED: DOCUSATE SOD 100 MG CAP PO PRN (13:00)
[2017-06-11] MEDS ORDERED: NITROGLYCERIN 0.4 MG SL TAB SL PRN (13:00)
[2017-06-11] MEDS ORDERED: MORPHINE SULFATE 10 MG/ML INJ 1ML SDV IV PRN (13:00)
[2017-06-11] MEDS ORDERED: ACETAMINOPHEN 325 MG TAB PO PRN (13:00)
[2017-06-11] MEDS ORDERED: AZITHROMYCIN 500MG/ 250ML 250 ML IV ONE (13:15)
[2017-06-11] MEDS ORDERED: DEXTROSE (50%) 50ML SYRG IV PRN (13:15)
[2017-06-11] MEDS: SODIUM CHLORIDE 0.9% 1,000 ML IV SCH ×2 (13:32→23:09)
[2017-06-11] MEDS: methylPREDNISolone SOD SUCC 125 MG/2 ML VL IV SCH ×2 (14:45→21:41)
[2017-06-11 14:57] LABS: Urine Bacteria NONE SEEN /hpf (None Seen); Urine Blood Negative /uL (Negative); Urine Specific Gravity 1.022 (1.001-1.035); Urine WBC 1 /hpf (0 - 5)
[2017-06-11] MEDS ORDERED: diphenhdrAMINE HCL 50 MG/1 ML VL ONE (15:00)
[2017-06-11] MEDS: diphenhdrAMINE HCL 50 MG/1 ML VL IV PRN (15:06)
[2017-06-11 15:15] VITALS: BP 117/59
[2017-06-11] MEDS: InsuLIN REG 1unit/0.01ml Soln (100units/ml) SC SCH ×2 (17:00→22:00)
[2017-06-11] MEDS: ACCU-CHEK COMFORT CURVE STRIP VI SCH ×2 (17:18→23:09)
[2017-06-11] MEDS: MORPHINE SULFATE 10 MG/ML INJ 1ML SDV IV PRN (17:27)
[2017-06-11] MEDS: ONDANSETRON HCL 4 MG/2 ML VIAL IV PRN ×2 (17:27→21:41)
[2017-06-11] MEDS: Boost Glucose Control 8 Ounces PO SCH (18:07)
[2017-06-11] MEDS: ALBUTEROL SULF 2.5 MG/0.5ML(0.5%) NEB SOLN NEB SCH ×2 (18:30→22:17)
[2017-06-11 22:45] VITALS: BP 126/79
[2017-06-11] MEDS: LORazepam 2MG/ML-1ML VIAL IV PRN (23:07)
[2017-06-11] MEDS: FAMOTIDINE 20 MG TAB PO SCH (23:07)
[2017-06-12] MEDS: TEMAZEPAM 15 MG CAP PO PRN (00:28)
[2017-06-12] MEDS: diphenhdrAMINE HCL 50 MG/1 ML VL IV PRN ×2 (01:56→22:47)
[2017-06-12] MEDS ORDERED: LORazepam 2MG/ML-1ML VIAL IV ONE (02:00)
[2017-06-12] MEDS ORDERED: ALBUTEROL SULF 2.5 MG/0.5ML(0.5%) NEB SOLN NEB PRN (02:00)
[2017-06-12] MEDS: ALBUTEROL SULF 2.5 MG/0.5ML(0.5%) NEB SOLN NEB SCH ×9 (02:05→22:01)
[2017-06-12] MEDS: methylPREDNISolone SOD SUCC 125 MG/2 ML VL IV SCH ×4 (03:06→20:48)
[2017-06-12 05:00] VITALS: BP 130/90
[2017-06-12] MEDS: ACCU-CHEK COMFORT CURVE STRIP VI SCH ×4 (06:15→21:51)
[2017-06-12] MEDS: InsuLIN REG 1unit/0.01ml Soln (100units/ml) SC SCH ×4 (06:15→21:52)
[2017-06-12 08:00] VITALS: BP 129/81
[2017-06-12] MEDS: Boost Glucose Control 8 Ounces PO SCH ×3 (08:27→16:53)
[2017-06-12] MEDS: cefTRIAXone 1GM/10ml IVPUSH 10 ML IV SCH (08:34)
[2017-06-12 09:00] VITALS: BP 129/81
[2017-06-12] MEDS: MULTIPLE VITAMIN TAB PO SCH (09:00)
[2017-06-12] MEDS: OSELTAMIVIR 75 MG CAP PO SCH ×2 (09:00→21:51)
[2017-06-12] MEDS: FAMOTIDINE 20 MG TAB PO SCH ×2 (09:02→21:51)
[2017-06-12] MEDS ORDERED: AZITHROMYCIN 500MG/ 250ML 250 ML IV SCH (10:00)
[2017-06-12 10:20] LABS: Albumin 3.8 g/dL (3.4-5.0); BUN/Creatinine Ratio 20.4; Bilirubin, Total 0.2 mg/dL (0.2-1.0); Potassium 4.5 mmol/L (3.5-5.1)
[2017-06-12 11:14] LABS: Basophils # (auto) 0 uL; Basophils % (auto) 0.1 % (0.0-2.0); Eosinophils # (auto) 0 uL; Hematocrit 39.3 % (36.0-46.0); Hemoglobin 13.1 g/dL (12.2-16.2); Lymphocytes # (auto) 0.7 uL; Lymphocytes % (auto) 6.8 % (10.0-50.0); Mean Corpuscular Hgb Conc. 33.3 g/dL (32.0-36.0); Mean Corpuscular Volume 90.1 fL (80.0-100.0); Monocytes # (auto) 0.9 uL; Monocytes % (auto) 8.7 % (0.0-12.0); Neutrophils # (auto) 8.7 uL; Neutrophils % (auto) 84.4 % (37.0-80.0); Platelet Count (auto) 248 10^3/uL (140-450); Red Blood Cells 4.36 10^6/uL (4.0-5.20); Red Cell Distribution Width 14.2 % (11.8-14.3); White Blood Cell 10.3 10^3/uL (4.4-10.8)
[2017-06-12] MEDS: LORazepam 2MG/ML-1ML VIAL IV PRN ×2 (11:53→20:30)
[2017-06-12 13:00] VITALS: BP 124/78
[2017-06-12] MEDS ORDERED: ALBUTEROL SULF 2.5 MG/0.5ML(0.5%) NEB SOLN NEB SCH (15:00)
[2017-06-12] MEDS: MORPHINE SULFATE 10 MG/ML INJ 1ML SDV IV PRN ×2 (16:48→22:30)
[2017-06-12 17:41] VITALS: BP 131/70
[2017-06-12] MEDS: ONDANSETRON HCL 4 MG/2 ML VIAL IV PRN (20:29)
[2017-06-12 21:30] VITALS: BP 120/74
[2017-06-12] MEDS: SODIUM CHLORIDE 0.9% 1,000 ML IV SCH (22:19)
[2017-06-13] MEDS: TEMAZEPAM 15 MG CAP PO PRN (00:17)
[2017-06-13] MEDS: ALBUTEROL SULF 2.5 MG/0.5ML(0.5%) NEB SOLN NEB SCH ×12 (00:23→22:16)
[2017-06-13] MEDS: methylPREDNISolone SOD SUCC 125 MG/2 ML VL IV SCH ×4 (02:58→20:30)
[2017-06-13] MEDS: MORPHINE SULFATE 10 MG/ML INJ 1ML SDV IV PRN ×6 (03:04→22:26)
[2017-06-13] MEDS: ONDANSETRON HCL 4 MG/2 ML VIAL IV PRN ×5 (04:20→22:25)
[2017-06-13] MEDS: LORazepam 2MG/ML-1ML VIAL IV PRN ×4 (04:20→20:30)
[2017-06-13 05:00] VITALS: BP 121/74
[2017-06-13] MEDS: diphenhdrAMINE HCL 50 MG/1 ML VL IV PRN ×4 (05:05→23:54)
[2017-06-13] MEDS: ACCU-CHEK COMFORT CURVE STRIP VI SCH ×4 (06:23→22:24)
[2017-06-13] MEDS: InsuLIN REG 1unit/0.01ml Soln (100units/ml) SC SCH ×5 (06:24→22:25)
[2017-06-13] MEDS: cefTRIAXone 1GM/10ml IVPUSH 10 ML IV SCH (08:18)
[2017-06-13] MEDS: Boost Glucose Control 8 Ounces PO SCH ×3 (08:18→18:11)
[2017-06-13 08:30] VITALS: BP 118/71
[2017-06-13] MEDS: OSELTAMIVIR 75 MG CAP PO SCH ×2 (10:20→22:14)
[2017-06-13] MEDS: MULTIPLE VITAMIN TAB PO SCH (10:20)
[2017-06-13] MEDS: FAMOTIDINE 20 MG TAB PO SCH ×2 (10:20→22:14)
[2017-06-13] MEDS: guaiFENesin 200 MG/10 ML UD GT SCH ×2 (12:16→17:36)
[2017-06-13 12:30] VITALS: BP 128/91
[2017-06-13] MEDS: SODIUM CHLORIDE 0.9% 1,000 ML IV SCH (16:19)
[2017-06-13 17:09] VITALS: BP 125/75
[2017-06-13] MEDS: BUDESONIDE (INHALATION) 0.5 MG/2 ML NEB NEB SCH (19:06)
[2017-06-13 22:00] VITALS: BP 132/76
[2017-06-14] MEDS: ALBUTEROL SULF 2.5 MG/0.5ML(0.5%) NEB SOLN NEB SCH ×9 (00:07→23:47)
[2017-06-14] MEDS: TEMAZEPAM 15 MG CAP PO PRN ×2 (00:33→22:06)
[2017-06-14] MEDS: methylPREDNISolone SOD SUCC 125 MG/2 ML VL IV SCH ×4 (02:50→21:37)
[2017-06-14] MEDS: MORPHINE SULFATE 10 MG/ML INJ 1ML SDV IV PRN ×5 (02:50→22:13)
[2017-06-14] MEDS: LORazepam 2MG/ML-1ML VIAL IV PRN ×4 (03:02→21:31)
[2017-06-14 05:51] VITALS: BP 124/72
[2017-06-14] MEDS: guaiFENesin 200 MG/10 ML UD GT SCH ×4 (06:01→18:45)
[2017-06-14] MEDS: InsuLIN REG 1unit/0.01ml Soln (100units/ml) SC SCH ×4 (06:01→22:00)
[2017-06-14] MEDS: ACCU-CHEK COMFORT CURVE STRIP VI SCH ×4 (06:02→22:00)
[2017-06-14] MEDS: diphenhdrAMINE HCL 50 MG/1 ML VL IV PRN ×3 (06:37→21:36)
[2017-06-14 08:11] VITALS: BP 132/82
[2017-06-14] MEDS: SODIUM CHLORIDE 0.9% 1,000 ML IV SCH (08:20)
[2017-06-14] MEDS: Boost Glucose Control 8 Ounces PO SCH ×3 (08:21→18:45)
[2017-06-14] MEDS: ONDANSETRON HCL 4 MG/2 ML VIAL IV PRN ×4 (08:22→22:09)
[2017-06-14] MEDS: FAMOTIDINE 20 MG TAB PO SCH ×2 (09:25→21:37)
[2017-06-14] MEDS: OSELTAMIVIR 75 MG CAP PO SCH ×2 (09:25→21:37)
[2017-06-14] MEDS: MULTIPLE VITAMIN TAB PO SCH (09:25)
[2017-06-14] MEDS: AZITHROMYCIN 250 MG TAB PO SCH (09:26)
[2017-06-14] MEDS: BUDESONIDE (INHALATION) 0.5 MG/2 ML NEB NEB SCH ×2 (10:01→20:09)
[2017-06-14 12:00] VITALS: BP 127/75
[2017-06-14] MEDS ORDERED: ALBUTEROL SULF 2.5 MG/0.5ML(0.5%) NEB SOLN ONE ×3 (13:23→18:16)
[2017-06-14 17:02] VITALS: BP 123/73
[2017-06-14] MEDS: MONTELUKAST SODIUM 10 MG TAB PO SCH (21:37)
[2017-06-14 22:00] VITALS: BP 127/87
[2017-06-14] MEDS ORDERED: MORPHINE SULF INJ 2 MG/ML SYRINGE 1ML ONE (22:01)
[2017-06-15] MEDS: SODIUM CHLORIDE 0.9% 1,000 ML IV SCH ×2 (00:19→17:50)
[2017-06-15 03:16] VITALS: BP 127/87
[2017-06-15] MEDS: methylPREDNISolone SOD SUCC 125 MG/2 ML VL IV SCH ×4 (03:52→21:21)
[2017-06-15] MEDS: diphenhdrAMINE HCL 50 MG/1 ML VL IV PRN ×3 (04:48→18:12)
[2017-06-15] MEDS: guaiFENesin 200 MG/10 ML UD GT SCH ×4 (05:26→17:51)
[2017-06-15 05:28] VITALS: BP 134/106
[2017-06-15] MEDS: LORazepam 2MG/ML-1ML VIAL IV PRN ×3 (05:29→22:20)
[2017-06-15] MEDS: ALBUTEROL SULF 2.5 MG/0.5ML(0.5%) NEB SOLN NEB SCH ×6 (06:18→18:21)
[2017-06-15] MEDS: InsuLIN REG 1unit/0.01ml Soln (100units/ml) SC SCH ×4 (06:49→22:00)
[2017-06-15] MEDS: ACCU-CHEK COMFORT CURVE STRIP VI SCH ×4 (06:50→22:20)
[2017-06-15] MEDS: BUDESONIDE (INHALATION) 0.5 MG/2 ML NEB NEB SCH ×2 (06:58→18:22)
[2017-06-15 08:00] VITALS: BP 126/77
[2017-06-15] MEDS: Boost Glucose Control 8 Ounces PO SCH ×3 (08:39→17:51)
[2017-06-15] MEDS: ONDANSETRON HCL 4 MG/2 ML VIAL IV PRN ×3 (08:39→20:23)
[2017-06-15] MEDS: MORPHINE SULF INJ 2 MG/ML SYRINGE 1ML IV PRN ×3 (09:07→20:23)
[2017-06-15] MEDS: AZITHROMYCIN 250 MG TAB PO SCH (10:53)
[2017-06-15] MEDS: MULTIPLE VITAMIN TAB PO SCH (10:53)
[2017-06-15] MEDS: FAMOTIDINE 20 MG TAB PO SCH ×2 (10:53→22:19)
[2017-06-15] MEDS: OSELTAMIVIR 75 MG CAP PO SCH ×2 (10:53→22:19)
[2017-06-15 12:00] VITALS: BP 135/96
[2017-06-15 16:54] VITALS: BP 128/76
[2017-06-15] MEDS: MONTELUKAST SODIUM 10 MG TAB PO SCH (22:19)
[2017-06-15 22:23] VITALS: BP 123/72
[2017-06-15] MEDS: TEMAZEPAM 15 MG CAP PO PRN (23:23)
[2017-06-16] MEDS: diphenhdrAMINE HCL 50 MG/1 ML VL IV PRN ×4 (01:34→22:21)
[2017-06-16] MEDS: methylPREDNISolone SOD SUCC 125 MG/2 ML VL IV SCH ×4 (03:25→22:21)
[2017-06-16] MEDS: guaiFENesin 200 MG/10 ML UD GT SCH ×4 (05:15→17:35)
[2017-06-16] MEDS: ONDANSETRON HCL 4 MG/2 ML VIAL IV PRN ×3 (05:16→17:34)
[2017-06-16] MEDS: MORPHINE SULF INJ 2 MG/ML SYRINGE 1ML IV PRN ×3 (05:16→17:34)
[2017-06-16 05:29] VITALS: BP 124/86
[2017-06-16] MEDS: ALBUTEROL SULF 2.5 MG/0.5ML(0.5%) NEB SOLN NEB SCH ×6 (06:18→18:23)
[2017-06-16] MEDS: ACCU-CHEK COMFORT CURVE STRIP VI SCH ×4 (06:39→22:22)
[2017-06-16] MEDS: InsuLIN REG 1unit/0.01ml Soln (100units/ml) SC SCH ×4 (06:39→22:00)
[2017-06-16] MEDS: LORazepam 2MG/ML-1ML VIAL IV PRN ×3 (06:41→19:47)
[2017-06-16] MEDS: Boost Glucose Control 8 Ounces PO SCH ×3 (08:00→17:36)
[2017-06-16 08:56] VITALS: BP 128/80
[2017-06-16] MEDS: OSELTAMIVIR 75 MG CAP PO SCH ×2 (09:22→22:21)
[2017-06-16] MEDS: FAMOTIDINE 20 MG TAB PO SCH (09:22)
[2017-06-16] MEDS: AZITHROMYCIN 250 MG TAB PO SCH (09:23)
[2017-06-16] MEDS: MULTIPLE VITAMIN TAB PO SCH (09:23)
[2017-06-16] MEDS: BUDESONIDE (INHALATION) 0.5 MG/2 ML NEB NEB SCH ×2 (09:25→18:23)
[2017-06-16] MEDS: SODIUM CHLORIDE 0.9% 1,000 ML IV SCH (09:28)
[2017-06-16 11:50] VITALS: BP 138/76
[2017-06-16] MEDS ORDERED: SODIUM CHLORIDE 0.9 % NEB SOLN 3ML NEB ONE (14:42)
[2017-06-16] MEDS ORDERED: PROMETHAZINE-DM 5 ML ORAL SYRUP GT ONE (16:30)
[2017-06-16 17:00] VITALS: BP 126/80
[2017-06-16 22:18] VITALS: BP 134/87
[2017-06-16] MEDS: MONTELUKAST SODIUM 10 MG TAB PO SCH (22:21)
[2017-06-17] MEDS: ALBUTEROL SULF 2.5 MG/0.5ML(0.5%) NEB SOLN NEB SCH ×8 (00:09→21:46)
[2017-06-17] MEDS: methylPREDNISolone SOD SUCC 125 MG/2 ML VL IV SCH ×4 (03:28→21:03)
[2017-06-17] MEDS: MORPHINE SULF INJ 2 MG/ML SYRINGE 1ML IV PRN ×4 (03:28→21:03)
[2017-06-17] MEDS: ONDANSETRON HCL 4 MG/2 ML VIAL IV PRN ×4 (03:28→21:04)
[2017-06-17] MEDS: guaiFENesin 200 MG/10 ML UD GT SCH ×4 (05:23→18:03)
[2017-06-17] MEDS: diphenhdrAMINE HCL 50 MG/1 ML VL IV PRN ×4 (05:24→23:54)
[2017-06-17 05:37] VITALS: BP 124/84
[2017-06-17] MEDS: BUDESONIDE (INHALATION) 0.5 MG/2 ML NEB NEB SCH ×2 (06:18→18:43)
[2017-06-17] MEDS: LORazepam 2MG/ML-1ML VIAL IV PRN ×3 (06:45→18:51)
[2017-06-17] MEDS: ACCU-CHEK COMFORT CURVE STRIP VI SCH ×4 (07:05→22:33)
[2017-06-17] MEDS: InsuLIN REG 1unit/0.01ml Soln (100units/ml) SC SCH ×4 (07:06→22:32)
[2017-06-17 07:28] VITALS: BP 140/97
[2017-06-17] MEDS: Boost Glucose Control 8 Ounces PO SCH ×3 (08:27→18:03)
[2017-06-17] MEDS: AZITHROMYCIN 250 MG TAB PO SCH (09:27)
[2017-06-17 11:25] VITALS: BP 126/75
[2017-06-17 16:00] VITALS: BP 125/96
[2017-06-17] MEDS ORDERED: HYDROcodone-ACET 5/325MG TAB PO PRN (16:30)
[2017-06-17 21:04] VITALS: BP 125/96
[2017-06-17 22:02] VITALS: BP 140/83
[2017-06-17] MEDS: MONTELUKAST SODIUM 10 MG TAB PO SCH (22:32)
[2017-06-18] MEDS: ALBUTEROL SULF 2.5 MG/0.5ML(0.5%) NEB SOLN NEB SCH ×6 (00:22→19:26)
[2017-06-18] MEDS: MORPHINE SULF INJ 2 MG/ML SYRINGE 1ML IV PRN ×4 (00:57→18:49)
[2017-06-18] MEDS: ONDANSETRON HCL 4 MG/2 ML VIAL IV PRN ×4 (00:58→18:49)
[2017-06-18] MEDS: methylPREDNISolone SOD SUCC 125 MG/2 ML VL IV SCH ×2 (02:01→08:51)
[2017-06-18] MEDS: LORazepam 2MG/ML-1ML VIAL IV PRN ×4 (02:02→21:21)
[2017-06-18 05:07] VITALS: BP 151/95
[2017-06-18] MEDS: guaiFENesin 200 MG/10 ML UD GT SCH ×4 (06:20→18:00)
[2017-06-18] MEDS: ACCU-CHEK COMFORT CURVE STRIP VI SCH ×4 (06:21→21:31)
[2017-06-18] MEDS: InsuLIN REG 1unit/0.01ml Soln (100units/ml) SC SCH ×4 (06:21→21:32)
[2017-06-18 08:46] VITALS: BP 137/81
[2017-06-18] MEDS: AZITHROMYCIN 250 MG TAB PO SCH (08:50)
[2017-06-18] MEDS: Boost Glucose Control 8 Ounces PO SCH ×3 (08:54→18:00)
[2017-06-18] MEDS: BUDESONIDE (INHALATION) 0.5 MG/2 ML NEB NEB SCH ×2 (09:39→22:50)
[2017-06-18] MEDS ORDERED: TEMAZEPAM 15 MG CAP PO PRN (11:30)
[2017-06-18] MEDS: diphenhdrAMINE HCL 50 MG/1 ML VL IV PRN ×2 (11:40→18:03)
[2017-06-18 12:58] VITALS: BP 123/76
[2017-06-18 16:56] VITALS: BP 123/86
[2017-06-18 20:00] VITALS: BP 115/79
[2017-06-18] MEDS: MONTELUKAST SODIUM 10 MG TAB PO SCH (21:21)
[2017-06-18] MEDS: predniSONE 20 MG TAB PO SCH (21:21)
[2017-06-18 22:00] VITALS: BP 115/79
[2017-06-19] MEDS: diphenhdrAMINE HCL 50 MG/1 ML VL IV PRN ×3 (00:19→12:20)
[2017-06-19] MEDS: ONDANSETRON HCL 4 MG/2 ML VIAL IV PRN ×2 (04:06→09:50)
[2017-06-19] MEDS: MORPHINE SULF INJ 2 MG/ML SYRINGE 1ML IV PRN (04:06)
[2017-06-19 05:00] VITALS: BP_SYST 127; BP_SYST 167; BP_DIAS 72; BP_DIAS 80
[2017-06-19] MEDS: guaiFENesin 200 MG/10 ML UD GT SCH ×3 (06:09→14:00)
[2017-06-19] MEDS: InsuLIN REG 1unit/0.01ml Soln (100units/ml) SC SCH ×2 (06:09→12:35)
[2017-06-19] MEDS: ACCU-CHEK COMFORT CURVE STRIP VI SCH ×2 (06:09→12:20)
[2017-06-19] MEDS: ALBUTEROL SULF 2.5 MG/0.5ML(0.5%) NEB SOLN NEB SCH ×3 (06:24→14:12)
[2017-06-19 08:00] VITALS: BP 113/67
[2017-06-19] MEDS: Boost Glucose Control 8 Ounces PO SCH ×2 (08:00→12:20)
[2017-06-19 09:00] VITALS: BP 113/67
[2017-06-19] MEDS: predniSONE 20 MG TAB PO SCH (09:36)
[2017-06-19] MEDS: LORazepam 2MG/ML-1ML VIAL IV PRN (09:50)
[2017-06-19] MEDS: BUDESONIDE (INHALATION) 0.5 MG/2 ML NEB NEB SCH (10:23)
[2017-06-19 12:55] VITALS: BP 113/67
[2017-06-19 13:00] VITALS: BP 123/80
[2017-06-19 13:12] VITALS: BP 113/67
== END 2017-06-19 16:15 | disposition home or self-care (01) | DRG 133 ==
LOC: ER 08:50 → EDBD 08:50 → TELE 08:51 → TELE-WESTW 22:16
PROVIDERS: ADMIT Internal Medicine; ATTEND Internal Medicine Pulmonary Disease
DX: J96.00 Acute respiratory failure, unspecified whether with hypoxia or hypercapnia (principal); J45.902 Unspecified asthma with status asthmaticus; E44.0 Moderate protein-calorie malnutrition; J45.901 Unspecified asthma with (acute) exacerbation; E88.09 Other disorders of plasma-protein metabolism, not elsewhere classified; E87.6 Hypokalemia; D63.8 Anemia in other chronic diseases classified elsewhere; F41.9 Anxiety disorder, unspecified; Z20.828 Contact with and (suspected) exposure to other viral communicable diseases; Z82.49 Family history of ischemic heart disease and other diseases of the circulatory system; Z87.440 Personal history of urinary (tract) infections; Z79.899 Other long term (current) drug therapy; Z88.8 Allergy status to other drugs, medicaments and biological substances; Z83.6 Family history of other diseases of the respiratory system; Z68.28 Body mass index [BMI] 28.0-28.9, adult; J11.1 Influenza due to unidentified influenza virus with other respiratory manifestations
CPT/HCPCS: 36415; 36600; 71045; 80053; 81001; 82805; 82962; 83036; 84702; 85025; 87040; 87081; 87086; 87400; 94640; 94644; 96365; 96366; 96367; 96368; 96375; 96376; 99291; J1815; J1885; J2001; J2405

== ENCOUNTER 2017-07-18 09:33 | Inpatient (IN) | payer OTHER ==
[~2017-07-18] VITALS: Ht 162.6 cm; Wt 80.2 kg
[2017-07-18] MEDS ORDERED: ALBUTEROL SULF 2.5 MG/0.5ML(0.5%) NEB SOLN NEB ONE ×2 (11:00→15:45)
[2017-07-18 12:19] LABS: Hematocrit 45.2 % (36.0-46.0); Hemoglobin 15.2 g/dL (12.2-16.2); Mean Corpuscular Hemoglobin 29.6 pg (28.0-32.0); Mean Corpuscular Hgb Conc. 33.6 g/dL (32.0-36.0); Mean Corpuscular Volume 88.1 fL (80.0-100.0); Platelet Count (auto) 100 10^3/uL (140-450); Red Blood Cells 5.13 10^6/uL (4.0-5.20); Red Cell Distribution Width 15.1 % (11.8-14.3); White Blood Cell 5.5 10^3/uL (4.4-10.8)
[2017-07-18 12:23] LABS: Band Neutrophils % (manual) 0
[2017-07-18 12:24] LABS: Basophils % (manual) 0 (0.0-2.0); Blast Cells 0; Eosinophils % (manual) 0 (0-7); Metamyelocytes % 0; Myelocytes % 0; Promyelocytes % 0; Reactive Lymphocytes 0
[2017-07-18 13:14] LABS: Alanine Aminotransferase 12 U/L (13-56); Albumin 4.2 g/dL (3.4-5.0); Alkaline Phosphatase 59 U/L (45-117); Anion Gap 8 (5-15); Aspartate Aminotransferase 11 U/L (15-37); Bilirubin, Total 0.5 mg/dL (0.2-1.0); Blood Urea Nitrogen 8 mg/dL (7-18); Calcium 9.2 mg/dL (8.5-10.1); Carbon Dioxide 25 mmol/L (21-32); Chloride 109 mmol/L (98-107); GFR African American 129 mL/min; GFR Non-African American 107 mL/min; Glucose 84 mg/dL (74-106); Magnesium 2.3 mg/dL (1.6-2.6); Potassium 3.8 mmol/L (3.5-5.1); Sodium 142 mmol/L (136-145); Total Protein 7.5 g/dL (6.4-8.2)
[2017-07-18 14:00] LABS: Lymphocytes % (manual) 35 (10.0-50.0); Monocytes % (manual) 5 (0-12)
[2017-07-18 15:03] LABS: Urine Bacteria NONE SEEN /hpf (None Seen); Urine Blood 1+ /uL (Negative); Urine Mucus FEW (None Seen); Urine Specific Gravity 1.018 (1.001-1.035); Urine WBC 4 /hpf (0 - 5)
[2017-07-18] MEDS ORDERED: methylPREDNISolone SOD SUCC 125 MG/2 ML VL IV ONE (15:15)
[2017-07-18] MEDS ORDERED: PANTOPRAZOLE 40 MG/10 ML VIAL IV ONE (15:45)
[2017-07-18] MEDS ORDERED: NITROGLYCERIN 0.4 MG SL TAB SL PRN (15:45)
[2017-07-18] MEDS ORDERED: LACTULOSE 20Gm/30ML SOLN PO PRN (15:45)
[2017-07-18] MEDS ORDERED: MORPHINE SULFATE 4 MG/ML SYR/VIAL IV PRN (15:45)
[2017-07-18] MEDS ORDERED: OSELTAMIVIR 75 MG CAP PO ONE (15:45)
[2017-07-18] MEDS ORDERED: HYDROcodone-ACET 5/325MG TAB PO PRN (15:45)
[2017-07-18] MEDS ORDERED: ACETAMINOPHEN 500 MG TAB PO PRN (15:45)
[2017-07-18] MEDS: SODIUM CHLORIDE 0.9% 1,000 ML IV SCH (16:27)
[2017-07-18] MEDS: ENOXAPARIN SOD 40 MG/0.4 ML SYRINGE SC SCH (16:36)
[2017-07-18] MEDS: DOXYCYCLINE HYC 100MG/250ML 250 ML IV SCH (16:36)
[2017-07-18] MEDS: methylPREDNISolone SOD SUCC 40 MG/ML VL IV SCH (18:00)
[2017-07-18] MEDS: BUDESONIDE (INHALATION) 0.5 MG/2 ML NEB NEB SCH (18:21)
[2017-07-18] MEDS: ALBUTEROL SULF 2.5 MG/0.5ML(0.5%) NEB SOLN NEB SCH (18:21)
[2017-07-18] MEDS: MORPHINE SULFATE 4 MG/ML SYR/VIAL IV PRN (18:32)
[2017-07-18 18:57] VITALS: BP 121/81
[2017-07-18] MEDS: LORazepam 0.5 MG TAB PO PRN (19:42)
[2017-07-18] MEDS ORDERED: OSELTAMIVIR 75 MG CAP PO SCH (22:00)
[2017-07-18 23:40] VITALS: BP 120/82
[2017-07-19] MEDS: methylPREDNISolone SOD SUCC 40 MG/ML VL IV SCH ×4 (01:13→17:49)
[2017-07-19] MEDS: PROMETHAZINE HCL 25 MG/ML 1ML IV PRN ×5 (01:14→19:55)
[2017-07-19] MEDS: MORPHINE SULFATE 4 MG/ML SYR/VIAL IV PRN ×5 (01:14→19:55)
[2017-07-19] MEDS: TEMAZEPAM 15 MG CAP PO PRN (01:15)
[2017-07-19] MEDS: ALBUTEROL SULF 2.5 MG/0.5ML(0.5%) NEB SOLN NEB SCH ×4 (01:20→18:13)
[2017-07-19] MEDS: DOXYCYCLINE HYC 100MG/250ML 250 ML IV SCH (04:46)
[2017-07-19] MEDS: SODIUM CHLORIDE 0.9% 1,000 ML IV SCH ×2 (04:48→17:50)
[2017-07-19 05:00] VITALS: BP 113/70
[2017-07-19] MEDS ORDERED: SODIUM CHLORIDE 0.9 % NEB SOLN 3ML NEB ONE ×2 (05:38→11:45)
[2017-07-19 09:00] VITALS: BP 115/62
[2017-07-19] MEDS: Tiotropium Bromide Monohydrate (Spiriva Handihaler) 18 MCG IN SCH (10:00)
[2017-07-19] MEDS: ENOXAPARIN SOD 40 MG/0.4 ML SYRINGE SC SCH (11:02)
[2017-07-19] MEDS: BUDESONIDE (INHALATION) 0.5 MG/2 ML NEB NEB SCH ×2 (12:11→18:13)
[2017-07-19 13:00] VITALS: BP 117/63
[2017-07-19] MEDS: LORazepam 0.5 MG TAB PO PRN ×2 (14:45→21:15)
[2017-07-19] MEDS ORDERED: PANTOPRAZOLE 40 MG TAB PO ONE (15:45)
[2017-07-19] MEDS: diphenhdrAMINE HCL 50 MG/1 ML VL IV PRN (16:33)
[2017-07-19 17:00] VITALS: BP 108/77
[2017-07-19 22:00] VITALS: BP 115/63
[2017-07-20] MEDS: methylPREDNISolone SOD SUCC 40 MG/ML VL IV SCH ×4 (00:14→20:04)
[2017-07-20] MEDS: ALBUTEROL SULF 2.5 MG/0.5ML(0.5%) NEB SOLN NEB PRN ×2 (01:05→22:41)
[2017-07-20] MEDS: MORPHINE SULFATE 4 MG/ML SYR/VIAL IV PRN ×5 (01:19→20:05)
[2017-07-20] MEDS: PROMETHAZINE HCL 25 MG/ML 1ML IV PRN ×5 (01:20→20:06)
[2017-07-20] MEDS: TEMAZEPAM 15 MG CAP PO PRN (01:56)
[2017-07-20] MEDS: diphenhdrAMINE HCL 50 MG/1 ML VL IV PRN ×4 (01:59→23:27)
[2017-07-20] MEDS: LORazepam 0.5 MG TAB PO PRN ×3 (04:52→19:29)
[2017-07-20 05:00] VITALS: BP 109/66
[2017-07-20] MEDS: ALBUTEROL SULF 2.5 MG/0.5ML(0.5%) NEB SOLN NEB SCH ×4 (06:05→18:07)
[2017-07-20] MEDS: SODIUM CHLORIDE 0.9% 1,000 ML IV SCH ×2 (06:45→12:25)
[2017-07-20 09:00] VITALS: BP 104/59
[2017-07-20] MEDS: Tiotropium Bromide Monohydrate (Spiriva Handihaler) 18 MCG IN SCH (10:00)
[2017-07-20] MEDS: BUDESONIDE (INHALATION) 0.5 MG/2 ML NEB NEB SCH ×2 (10:10→18:07)
[2017-07-20] MEDS: PANTOPRAZOLE 40 MG TAB PO SCH (10:19)
[2017-07-20] MEDS: ENOXAPARIN SOD 40 MG/0.4 ML SYRINGE SC SCH (10:21)
[2017-07-20] MEDS ORDERED: methylPREDNISolone SOD SUCC 40 MG/ML VL IV SCH (14:00)
[2017-07-20 15:03] VITALS: BP 117/57
[2017-07-20 17:00] VITALS: BP 129/77
[2017-07-20 20:00] VITALS: BP 136/91
[2017-07-21] MEDS: MORPHINE SULFATE 4 MG/ML SYR/VIAL IV PRN ×4 (00:24→14:05)
[2017-07-21] MEDS: PROMETHAZINE HCL 25 MG/ML 1ML IV PRN ×4 (00:24→14:06)
[2017-07-21] MEDS: TEMAZEPAM 15 MG CAP PO PRN (00:29)
[2017-07-21] MEDS: methylPREDNISolone SOD SUCC 40 MG/ML VL IV SCH ×2 (03:27→12:11)
[2017-07-21] MEDS: LORazepam 0.5 MG TAB PO PRN ×2 (03:27→10:31)
[2017-07-21 04:37] VITALS: BP 117/68
[2017-07-21] MEDS: diphenhdrAMINE HCL 50 MG/1 ML VL IV PRN ×2 (06:02→12:11)
[2017-07-21] MEDS: ALBUTEROL SULF 2.5 MG/0.5ML(0.5%) NEB SOLN NEB SCH ×3 (06:51→14:03)
[2017-07-21] MEDS: PANTOPRAZOLE 40 MG TAB PO SCH (08:59)
[2017-07-21 09:00] VITALS: BP 139/89
[2017-07-21] MEDS: ENOXAPARIN SOD 40 MG/0.4 ML SYRINGE SC SCH (09:00)
[2017-07-21] MEDS: Tiotropium Bromide Monohydrate (Spiriva Handihaler) 18 MCG IN SCH (10:00)
[2017-07-21] MEDS: BUDESONIDE (INHALATION) 0.5 MG/2 ML NEB NEB SCH (11:06)
[2017-07-21 12:30] VITALS: BP 125/71
== END 2017-07-21 15:54 | disposition home or self-care (01) | DRG 140 ==
LOC: ER 09:33 → EDBD 09:33 → TELE 09:34 → TELE-CENTR 23:47
PROVIDERS: ADMIT Internal Medicine; ATTEND Internal Medicine
DX: J44.1 Chronic obstructive pulmonary disease with (acute) exacerbation (principal); D69.6 Thrombocytopenia, unspecified; J45.51 Severe persistent asthma with (acute) exacerbation; F12.90 Cannabis use, unspecified, uncomplicated; F41.9 Anxiety disorder, unspecified; J06.9 Acute upper respiratory infection, unspecified; K29.50 Unspecified chronic gastritis without bleeding; L29.9 Pruritus, unspecified; Z80.1 Family history of malignant neoplasm of trachea, bronchus and lung; Z80.3 Family history of malignant neoplasm of breast; Z80.41 Family history of malignant neoplasm of ovary; Z80.8 Family history of malignant neoplasm of other organs or systems; Z81.8 Family history of other mental and behavioral disorders; Z82.0 Family history of epilepsy and other diseases of the nervous system; Z82.3 Family history of stroke; Z82.49 Family history of ischemic heart disease and other diseases of the circulatory system; Z82.5 Family history of asthma and other chronic lower respiratory diseases; Z82.62 Family history of osteoporosis; Z83.3 Family history of diabetes mellitus; Z86.711 Personal history of pulmonary embolism; Z87.440 Personal history of urinary (tract) infections; Z72.89 Other problems related to lifestyle
CPT/HCPCS: 36415; 71046; 80053; 81001; 81025; 83735; 84484; 85007; 85027; 87081; 87804; 93005; 94010; 94640; 94761; 96365; 96366; 96372; 96375; C9113; J3490

== ENCOUNTER 2017-07-27 13:17 | Inpatient (IN) | payer OTHER ==
[~2017-07-27] VITALS: Ht 198.1 cm; Wt 84.0 kg
[2017-07-27] MEDS ORDERED: ALBUTEROL SULF 2.5 MG/0.5ML(0.5%) NEB SOLN ONE (13:23)
[2017-07-27] MEDS ORDERED: SODIUM CHLORIDE 0.9% 1,000 ML IV ONE ×2 (13:27)
[2017-07-27] MEDS ORDERED: ALBUTEROL SULF 2.5 MG/0.5ML(0.5%) NEB SOLN NEB ONE (13:30)
[2017-07-27] MEDS ORDERED: methylPREDNISolone SOD SUCC 125 MG/2 ML VL IV ONE (13:30)
[2017-07-27 13:52] LABS: Basophils # (auto) 0.1 uL; Basophils % (auto) 0.5 % (0.0-2.0); Eosinophils # (auto) 0 uL; Hematocrit 45.8 % (36.0-46.0); Hemoglobin 15.1 g/dL (12.2-16.2); Lymphocytes # (auto) 2.5 uL; Lymphocytes % (auto) 13.1 % (10.0-50.0); Mean Corpuscular Hemoglobin 29.2 pg (28.0-32.0); Mean Corpuscular Hgb Conc. 32.9 g/dL (32.0-36.0); Mean Corpuscular Volume 88.6 fL (80.0-100.0); Monocytes # (auto) 1.5 uL; Monocytes % (auto) 7.8 % (0.0-12.0); Neutrophils # (auto) 14.8 uL; Neutrophils % (auto) 78.6 % (37.0-80.0); Nucleated Red Blood Cells % 0.1 %; Platelet Count (auto) 324 10^3/uL (140-450); Red Blood Cells 5.16 10^6/uL (4.0-5.20); Red Cell Distribution Width 15.4 % (11.8-14.3); White Blood Cell 18.8 10^3/uL (4.4-10.8)
[2017-07-27 14:14] LABS: Bilirubin, Total 0.7 mg/dL (0.2-1.0); INR 0.9 (0.9-1.15); Partial Thromboplastin Time 26.1 sec (22.64-33.71); Prothrombin Time 9.8 sec (9.37-12.3); Total Protein 7.5 g/dL (6.4-8.2)
[2017-07-27] MEDS ORDERED: HYDROcodone-ACET 5/325MG TAB PO PRN (14:30)
[2017-07-27] MEDS ORDERED: LORazepam 0.5 MG TAB PO PRN (14:30)
[2017-07-27] MEDS ORDERED: OSELTAMIVIR 75 MG CAP PO ONE (14:30)
[2017-07-27] MEDS ORDERED: MORPHINE SULFATE 4 MG/ML SYR/VIAL IV PRN (14:30)
[2017-07-27] MEDS ORDERED: PIPERACILLIN-TAZOB 3.375GM 50 ML IV ONE (14:30)
[2017-07-27] MEDS ORDERED: ACETAMINOPHEN 500 MG TAB PO PRN (14:30)
[2017-07-27] MEDS ORDERED: NITROGLYCERIN 0.4 MG SL TAB SL PRN (14:30)
[2017-07-27] MEDS ORDERED: ALBUTEROL SULF 2.5 MG/0.5ML(0.5%) NEB SOLN NEB PRN (14:30)
[2017-07-27] MEDS ORDERED: LACTULOSE 20Gm/30ML SOLN PO PRN (14:30)
[2017-07-27] MEDS: SODIUM CHLORIDE 0.9% 1,000 ML IV SCH (14:56)
[2017-07-27] MEDS: ENOXAPARIN SOD 40 MG/0.4 ML SYRINGE SC SCH (15:00)
[2017-07-27] MEDS: cefTRIAXone 1GM/10ml IVPUSH 10 ML IV SCH (15:11)
[2017-07-27] MEDS: PROMETHAZINE HCL 25 MG/ML 1ML IV PRN ×2 (15:11→23:26)
[2017-07-27 15:40] LABS: BUN/Creatinine Ratio 11.9; Potassium 3.8 mmol/L (3.5-5.1)
[2017-07-27 15:41] LABS: Albumin 3.2 g/dL (3.4-5.0); Calcium 8.3 mg/dL (8.5-10.1)
[2017-07-27] MEDS ORDERED: MAGNESIUM SULFATE 1GM/100ML 100 ML IV ONE ×2 (16:15)
[2017-07-27 16:44] LABS: Urine Bacteria NONE SEEN /hpf (None Seen); Urine Blood Negative /uL (Negative); Urine Specific Gravity 1.009 (1.001-1.035); Urine WBC 1 /hpf (0 - 5)
[2017-07-27] MEDS: LORazepam 2MG/ML-1ML VIAL IV PRN (16:55)
[2017-07-27] MEDS: MORPHINE SULFATE 4 MG/ML SYR/VIAL IV PRN ×2 (18:31→23:36)
[2017-07-27] MEDS: ALBUTEROL SULF 2.5 MG/0.5ML(0.5%) NEB SOLN NEB SCH (18:50)
[2017-07-27] MEDS: methylPREDNISolone SOD SUCC 40 MG/ML VL IV SCH (20:26)
[2017-07-27 21:26] VITALS: BP 118/68
[2017-07-27] MEDS: OSELTAMIVIR 75 MG CAP PO SCH (22:00)
[2017-07-28] MEDS: ALBUTEROL SULF 2.5 MG/0.5ML(0.5%) NEB SOLN NEB SCH ×5 (01:20→19:00)
[2017-07-28] MEDS: LORazepam 2MG/ML-1ML VIAL IV PRN ×4 (01:41→20:51)
[2017-07-28] MEDS: methylPREDNISolone SOD SUCC 40 MG/ML VL IV SCH ×3 (01:50→22:15)
[2017-07-28] MEDS: SODIUM CHLORIDE 0.9% 1,000 ML IV SCH ×2 (01:50→17:29)
[2017-07-28] MEDS: MORPHINE SULFATE 4 MG/ML SYR/VIAL IV PRN ×5 (04:41→23:23)
[2017-07-28 06:44] LABS: Basophils # (auto) 0.1 uL; Basophils % (auto) 0.4 % (0.0-2.0); Eosinophils # (auto) 0 uL; Eosinophils % (auto) 0.1 % (0.0-7.0); Hematocrit 43.5 % (36.0-46.0); Hemoglobin 14.2 g/dL (12.2-16.2); Lymphocytes % (auto) 5.9 % (10.0-50.0); Mean Corpuscular Hemoglobin 29.1 pg (28.0-32.0); Mean Corpuscular Hgb Conc. 32.7 g/dL (32.0-36.0); Mean Corpuscular Volume 89.1 fL (80.0-100.0); Monocytes # (auto) 0.7 uL; Monocytes % (auto) 3.7 % (0.0-12.0); Neutrophils % (auto) 89.9 % (37.0-80.0); Platelet Count (auto) 220 10^3/uL (140-450); Red Blood Cells 4.88 10^6/uL (4.0-5.20); Red Cell Distribution Width 15.1 % (11.8-14.3); White Blood Cell 17.8 10^3/uL (4.4-10.8)
[2017-07-28 07:06] LABS: Cholesterol 208 mg/dL (< 200); HDL Cholesterol 61 mg/dL (40-59); LDL Cholesterol 132 mg/dL (< 100); Triglycerides 69 mg/dL (< 150)
[2017-07-28] MEDS: PROMETHAZINE HCL 25 MG/ML 1ML IV PRN ×4 (08:50→23:23)
[2017-07-28] MEDS: cefTRIAXone 1GM/10ml IVPUSH 10 ML IV SCH (09:00)
[2017-07-28] MEDS: OSELTAMIVIR 75 MG CAP PO SCH (10:00)
[2017-07-28] MEDS: ENOXAPARIN SOD 40 MG/0.4 ML SYRINGE SC SCH (10:18)
[2017-07-28] MEDS: diphenhdrAMINE HCL 50 MG/1 ML VL IV PRN ×2 (15:07→20:51)
[2017-07-28 16:35] VITALS: BP 112/60
[2017-07-28 22:00] VITALS: BP 119/81
[2017-07-29] MEDS: ALBUTEROL SULF 2.5 MG/0.5ML(0.5%) NEB SOLN NEB SCH ×5 (00:02→23:46)
[2017-07-29] MEDS: TEMAZEPAM 15 MG CAP PO PRN (01:14)
[2017-07-29] MEDS: LORazepam 2MG/ML-1ML VIAL IV PRN ×4 (04:16→23:53)
[2017-07-29] MEDS: diphenhdrAMINE HCL 50 MG/1 ML VL IV PRN ×4 (04:17→23:53)
[2017-07-29 05:00] VITALS: BP 109/66
[2017-07-29] MEDS: SODIUM CHLORIDE 0.9% 1,000 ML IV SCH ×2 (05:32→12:03)
[2017-07-29] MEDS: PROMETHAZINE HCL 25 MG/ML 1ML IV PRN ×5 (05:51→22:51)
[2017-07-29] MEDS: MORPHINE SULFATE 4 MG/ML SYR/VIAL IV PRN ×5 (05:52→22:51)
[2017-07-29 08:00] VITALS: BP 116/71
[2017-07-29] MEDS: cefTRIAXone 1GM/10ml IVPUSH 10 ML IV SCH (10:12)
[2017-07-29] MEDS: ENOXAPARIN SOD 40 MG/0.4 ML SYRINGE SC SCH (10:12)
[2017-07-29] MEDS: methylPREDNISolone SOD SUCC 40 MG/ML VL IV SCH ×2 (10:12→22:38)
[2017-07-29 12:00] VITALS: BP 112/70
[2017-07-29] MEDS ORDERED: ALUM & MAG HYDROX-SIMETH LIQ(MAALOX) 30 ML PO PRN (15:45)
[2017-07-29] MEDS ORDERED: ALUM & MAG HYDROX-SIMETH LIQ(MAALOX) 30 ML PO ONE (15:45)
[2017-07-29 17:13] VITALS: BP 118/61
[2017-07-29] MEDS: FAMOTIDINE 20 MG TAB PO SCH (17:53)
[2017-07-29 22:00] VITALS: BP 128/73
[2017-07-30] MEDS: TEMAZEPAM 15 MG CAP PO PRN (01:11)
[2017-07-30] MEDS: PROMETHAZINE HCL 25 MG/ML 1ML IV PRN ×5 (02:58→23:03)
[2017-07-30] MEDS: MORPHINE SULFATE 4 MG/ML SYR/VIAL IV PRN ×5 (02:58→23:04)
[2017-07-30 05:00] VITALS: BP 125/82
[2017-07-30] MEDS: diphenhdrAMINE HCL 50 MG/1 ML VL IV PRN ×3 (05:54→20:29)
[2017-07-30] MEDS: LORazepam 2MG/ML-1ML VIAL IV PRN ×3 (05:54→20:30)
[2017-07-30] MEDS: ALBUTEROL SULF 2.5 MG/0.5ML(0.5%) NEB SOLN NEB SCH ×3 (07:04→19:17)
[2017-07-30 08:00] VITALS: BP 132/74
[2017-07-30] MEDS: cefTRIAXone 1GM/10ml IVPUSH 10 ML IV SCH (09:57)
[2017-07-30] MEDS: FAMOTIDINE 20 MG TAB PO SCH (09:57)
[2017-07-30] MEDS: ENOXAPARIN SOD 40 MG/0.4 ML SYRINGE SC SCH (09:57)
[2017-07-30] MEDS: SODIUM CHLORIDE 0.9% 1,000 ML IV SCH ×2 (09:57→23:03)
[2017-07-30] MEDS: methylPREDNISolone SOD SUCC 40 MG/ML VL IV SCH ×2 (09:57→23:03)
[2017-07-30 12:00] VITALS: BP 126/77
[2017-07-30 17:23] VITALS: BP 132/83
[2017-07-30 21:54] VITALS: BP 132/87
[2017-07-31] VITALS (7 sets, daily range): BP systolic 122–132; BP diastolic 76–89
[2017-07-31] MEDS: ALBUTEROL SULF 2.5 MG/0.5ML(0.5%) NEB SOLN NEB SCH ×4 (01:26→19:22)
[2017-07-31] MEDS: diphenhdrAMINE HCL 50 MG/1 ML VL IV PRN ×4 (02:28→21:32)
[2017-07-31] MEDS: LORazepam 2MG/ML-1ML VIAL IV PRN ×4 (02:29→21:32)
[2017-07-31] MEDS: MORPHINE SULFATE 4 MG/ML SYR/VIAL IV PRN ×5 (03:21→22:12)
[2017-07-31] MEDS: PROMETHAZINE HCL 25 MG/ML 1ML IV PRN ×5 (03:23→22:12)
[2017-07-31 08:00] LABS: BUN/Creatinine Ratio 25.9
[2017-07-31 08:10] LABS: Basophils # (auto) 0 uL; Basophils % (auto) 0.2 % (0.0-2.0); Eosinophils # (auto) 0 uL; Hematocrit 37.8 % (36.0-46.0); Hemoglobin 12.6 g/dL (12.2-16.2); Lymphocytes # (auto) 1.3 uL; Lymphocytes % (auto) 8.5 % (10.0-50.0); Mean Corpuscular Hemoglobin 29.6 pg (28.0-32.0); Mean Corpuscular Hgb Conc. 33.3 g/dL (32.0-36.0); Mean Corpuscular Volume 88.7 fL (80.0-100.0); Monocytes # (auto) 0.7 uL; Monocytes % (auto) 4.7 % (0.0-12.0); Neutrophils # (auto) 13.2 uL; Neutrophils % (auto) 86.6 % (37.0-80.0); Platelet Count (auto) 220 10^3/uL (140-450); Red Blood Cells 4.26 10^6/uL (4.0-5.20); Red Cell Distribution Width 14.5 % (11.8-14.3); White Blood Cell 15.3 10^3/uL (4.4-10.8)
[2017-07-31] MEDS: FAMOTIDINE 20 MG TAB PO SCH (09:35)
[2017-07-31] MEDS: methylPREDNISolone SOD SUCC 40 MG/ML VL IV SCH ×2 (09:36→22:12)
[2017-07-31] MEDS: cefTRIAXone 1GM/10ml IVPUSH 10 ML IV SCH (09:55)
[2017-07-31] MEDS: ENOXAPARIN SOD 40 MG/0.4 ML SYRINGE SC SCH (09:55)
[2017-07-31] MEDS: SODIUM CHLORIDE 0.9% 1,000 ML IV SCH (12:22)
[2017-07-31] MEDS: TEMAZEPAM 15 MG CAP PO PRN (23:09)
[2017-08-01] MEDS: ALBUTEROL SULF 2.5 MG/0.5ML(0.5%) NEB SOLN NEB SCH ×3 (00:38→13:31)
[2017-08-01] MEDS: SODIUM CHLORIDE 0.9% 1,000 ML IV SCH ×2 (02:17→14:30)
[2017-08-01] MEDS: PROMETHAZINE HCL 25 MG/ML 1ML IV PRN ×4 (02:17→15:25)
[2017-08-01] MEDS: MORPHINE SULFATE 4 MG/ML SYR/VIAL IV PRN ×2 (02:17→06:13)
[2017-08-01] MEDS: LORazepam 2MG/ML-1ML VIAL IV PRN ×3 (03:37→15:25)
[2017-08-01] MEDS: diphenhdrAMINE HCL 50 MG/1 ML VL IV PRN ×3 (03:37→15:26)
[2017-08-01 04:48] VITALS: BP 131/78
[2017-08-01 06:29] LABS: Hematocrit 38.7 % (36.0-46.0); Hemoglobin 12.9 g/dL (12.2-16.2); Mean Corpuscular Hemoglobin 29.9 pg (28.0-32.0); Mean Corpuscular Hgb Conc. 33.4 g/dL (32.0-36.0); Mean Corpuscular Volume 89.5 fL (80.0-100.0); Platelet Count (auto) 188 10^3/uL (140-450); Red Blood Cells 4.32 10^6/uL (4.0-5.20); Red Cell Distribution Width 14.6 % (11.8-14.3); White Blood Cell 15.9 10^3/uL (4.4-10.8)
[2017-08-01 06:37] LABS: Basophils % (manual) 0 (0.0-2.0); Blast Cells 0; Eosinophils % (manual) 0 (0-7); Metamyelocytes % 0; Myelocytes % 0; Promyelocytes % 0; Reactive Lymphocytes 0
[2017-08-01 06:58] LABS: Calcium 8.5 mg/dL (8.5-10.1); Potassium 4.2 mmol/L (3.5-5.1)
[2017-08-01 09:00] VITALS: BP 137/84
[2017-08-01] MEDS: methylPREDNISolone SOD SUCC 40 MG/ML VL IV SCH (09:43)
[2017-08-01] MEDS: cefTRIAXone 1GM/10ml IVPUSH 10 ML IV SCH (09:43)
[2017-08-01] MEDS: FAMOTIDINE 20 MG TAB PO SCH (09:44)
[2017-08-01] MEDS: ENOXAPARIN SOD 40 MG/0.4 ML SYRINGE SC SCH (09:44)
[2017-08-01 11:16] LABS: Band Neutrophils % (manual) 1; Lymphocytes % (manual) 8 (10.0-50.0); Monocytes % (manual) 4 (0-12)
[2017-08-01 13:00] VITALS: BP 136/90
== END 2017-08-01 16:45 | disposition home or self-care (01) | DRG 720 ==
LOC: EDBD 13:17 → ER 13:17 → OVERFLOW 13:18 → TELE-WESTW 07-28 13:20
PROVIDERS: ADMIT Internal Medicine; ATTEND Internal Medicine
DX: A41.9 Sepsis, unspecified organism (principal); J96.00 Acute respiratory failure, unspecified whether with hypoxia or hypercapnia; E44.1 Mild protein-calorie malnutrition; J45.901 Unspecified asthma with (acute) exacerbation; E88.09 Other disorders of plasma-protein metabolism, not elsewhere classified; E83.51 Hypocalcemia; J20.9 Acute bronchitis, unspecified; N30.90 Cystitis, unspecified without hematuria; F12.90 Cannabis use, unspecified, uncomplicated; F41.9 Anxiety disorder, unspecified; G89.29 Other chronic pain; Z80.1 Family history of malignant neoplasm of trachea, bronchus and lung; Z80.3 Family history of malignant neoplasm of breast; Z80.41 Family history of malignant neoplasm of ovary; Z80.8 Family history of malignant neoplasm of other organs or systems; Z68.21 Body mass index [BMI] 21.0-21.9, adult; Z81.8 Family history of other mental and behavioral disorders; Z82.0 Family history of epilepsy and other diseases of the nervous system; Z82.3 Family history of stroke; Z82.49 Family history of ischemic heart disease and other diseases of the circulatory system; Z82.62 Family history of osteoporosis; Z83.3 Family history of diabetes mellitus; Z86.711 Personal history of pulmonary embolism; Z87.440 Personal history of urinary (tract) infections; Z88.8 Allergy status to other drugs, medicaments and biological substances; Z91.010 Allergy to peanuts
CPT/HCPCS: 36415; 71045; 80048; 80053; 80061; 81001; 83880; 85007; 85025; 85027; 85610; 85730; 87040; 87081; 87086; 87804; 93005; 94640; 94644; 96372; 96374; 96375; 96376; 99291; G0378

== ENCOUNTER 2017-08-16 12:17 | Inpatient (IN) | payer OTHER ==
[~2017-08-16] VITALS: Ht 167.6 cm; Wt 82.0 kg
[2017-08-16] MEDS ORDERED: ALBUTEROL SULF 2.5 MG/0.5ML(0.5%) NEB SOLN NEB ONE (13:15)
[2017-08-16] MEDS ORDERED: IPRATROPIUM BROM 0.5 MG/2.5ML INH SOL NEB ONE (13:15)
[2017-08-16] MEDS ORDERED: methylPREDNISolone SOD SUCC 125 MG/2 ML VL IV ONE (13:15)
[2017-08-16] MEDS ORDERED: ALBUTEROL SULF 2.5 MG/0.5ML(0.5%) NEB SOLN ONE (13:51)
[2017-08-16 14:01] LABS: Basophils # (auto) 0 uL; Basophils % (auto) 0.4 % (0.0-2.0); Eosinophils # (auto) 0 uL; Hematocrit 37.7 % (36.0-46.0); Hemoglobin 12.7 g/dL (12.2-16.2); Lymphocytes # (auto) 1.6 uL; Lymphocytes % (auto) 16.9 % (10.0-50.0); Mean Corpuscular Hemoglobin 29.9 pg (28.0-32.0); Mean Corpuscular Hgb Conc. 33.7 g/dL (32.0-36.0); Monocytes # (auto) 0.6 uL; Monocytes % (auto) 6.7 % (0.0-12.0); Neutrophils # (auto) 7.3 uL; Nucleated Red Blood Cells % 0.1 %; Platelet Count (auto) 261 10^3/uL (140-450); Red Blood Cells 4.24 10^6/uL (4.0-5.20); Red Cell Distribution Width 15.2 % (11.8-14.3); White Blood Cell 9.6 10^3/uL (4.4-10.8)
[2017-08-16 14:28] LABS: Albumin 3.8 g/dL (3.4-5.0); BUN/Creatinine Ratio 12.5; Bilirubin, Total 0.8 mg/dL (0.2-1.0); Calcium 8.3 mg/dL (8.5-10.1); Potassium 3.2 mmol/L (3.5-5.1); Total Protein 6.8 g/dL (6.4-8.2)
[2017-08-16] MEDS: SODIUM CHLORIDE 0.9% 1,000 ML IV SCH (15:25)
[2017-08-16] MEDS ORDERED: diphenhdrAMINE HCL 25 MG CAP PO ONE (15:30)
[2017-08-16] MEDS ORDERED: MORPHINE SULFATE 4 MG/ML SYR/VIAL IV PRN (15:30)
[2017-08-16] MEDS ORDERED: LACTULOSE 20Gm/30ML SOLN PO PRN (15:30)
[2017-08-16] MEDS ORDERED: ACETAMINOPHEN 500 MG TAB PO PRN (15:30)
[2017-08-16] MEDS ORDERED: HYDROcodone-ACET 5/325MG TAB PO PRN (15:30)
[2017-08-16] MEDS ORDERED: diphenhdrAMINE HCL 25 MG CAP PO PRN (15:30)
[2017-08-16] MEDS: DOXYCYCLINE HYC 100MG/250ML 250 ML IV SCH (15:30)
[2017-08-16] MEDS ORDERED: POTASSIUM CHL 20 Meq TABLET PO ONE (15:30)
[2017-08-16] MEDS ORDERED: NITROGLYCERIN 0.4 MG SL TAB SL PRN (15:30)
[2017-08-16 17:01] LABS: Urine Bacteria NONE SEEN /hpf (None Seen); Urine Blood Negative /uL (Negative); Urine Mucus FEW (None Seen); Urine Specific Gravity 1.025 (1.001-1.035); Urine WBC 2 /hpf (0 - 5)
[2017-08-16] MEDS: MORPHINE SULFATE 4 MG/ML SYR/VIAL IV PRN ×2 (17:01→21:07)
[2017-08-16] MEDS: methylPREDNISolone SOD SUCC 40 MG/ML VL IV SCH (18:00)
[2017-08-16] MEDS: LORazepam 0.5 MG TAB PO PRN (18:13)
[2017-08-16] MEDS: PROMETHAZINE HCL 25 MG/ML 1ML IV PRN ×2 (18:15→22:10)
[2017-08-16] MEDS: ALBUTEROL SULF 2.5 MG/0.5ML(0.5%) NEB SOLN NEB SCH (18:50)
[2017-08-16 18:51] VITALS: BP 128/81
[2017-08-16 20:00] VITALS: BP 117/83
[2017-08-16 21:27] VITALS: BP 128/81
[2017-08-16 22:11] VITALS: BP 117/83
[2017-08-17] VITALS (7 sets, daily range): BP systolic 114–126; BP diastolic 71–72
[2017-08-17] MEDS: TEMAZEPAM 15 MG CAP PO PRN (00:09)
[2017-08-17] MEDS: methylPREDNISolone SOD SUCC 40 MG/ML VL IV SCH ×4 (00:09→17:47)
[2017-08-17] MEDS: LORazepam 0.5 MG TAB PO PRN (00:20)
[2017-08-17] MEDS: ALBUTEROL SULF 2.5 MG/0.5ML(0.5%) NEB SOLN NEB SCH ×3 (00:25→11:33)
[2017-08-17] MEDS: MORPHINE SULFATE 4 MG/ML SYR/VIAL IV PRN ×6 (01:10→21:54)
[2017-08-17] MEDS: PROMETHAZINE HCL 25 MG/ML 1ML IV PRN ×5 (02:29→21:55)
[2017-08-17] MEDS: ALBUTEROL SULF 2.5 MG/0.5ML(0.5%) NEB SOLN NEB PRN (03:04)
[2017-08-17] MEDS: DOXYCYCLINE HYC 100MG/250ML 250 ML IV SCH ×2 (03:27→15:59)
[2017-08-17] MEDS: SODIUM CHLORIDE 0.9% 1,000 ML IV SCH ×2 (04:59→16:05)
[2017-08-17] MEDS: TIOTROPIUM IN SCH (10:00)
[2017-08-17] MEDS: ENOXAPARIN SOD 40 MG/0.4 ML SYRINGE SC SCH (10:12)
[2017-08-17] MEDS ORDERED: FAMOTIDINE 20 MG TAB PO ONE (11:00)
[2017-08-17] MEDS: LORazepam 2MG/ML-1ML VIAL IV PRN ×2 (11:08→18:45)
[2017-08-17] MEDS: diphenhdrAMINE HCL 50 MG/1 ML VL IV PRN ×3 (12:30→18:45)
[2017-08-17] MEDS: FAMOTIDINE 20 MG TAB PO SCH (21:54)
[2017-08-18] MEDS: diphenhdrAMINE HCL 50 MG/1 ML VL IV PRN ×4 (00:57→18:55)
[2017-08-18] MEDS: TEMAZEPAM 15 MG CAP PO PRN (00:57)
[2017-08-18] MEDS: LORazepam 2MG/ML-1ML VIAL IV PRN ×4 (00:57→18:55)
[2017-08-18] MEDS: PROMETHAZINE HCL 25 MG/ML 1ML IV PRN ×5 (01:52→14:04)
[2017-08-18] MEDS: MORPHINE SULFATE 4 MG/ML SYR/VIAL IV PRN ×6 (01:52→21:58)
[2017-08-18] MEDS: ALBUTEROL SULF 2.5 MG/0.5ML(0.5%) NEB SOLN NEB SCH ×5 (02:50→22:00)
[2017-08-18] MEDS: DOXYCYCLINE HYC 100MG/250ML 250 ML IV SCH ×2 (03:06→16:08)
[2017-08-18] MEDS ORDERED: ALBUTEROL SULF 2.5 MG/0.5ML(0.5%) NEB SOLN NEB ONE (03:15)
[2017-08-18] MEDS ORDERED: methylPREDNISolone SOD SUCC 125 MG/2 ML VL IV ONE (03:15)
[2017-08-18] MEDS ORDERED: LORazepam 2MG/ML-1ML VIAL ONE (05:15)
[2017-08-18] MEDS ORDERED: EPINEPHrine HCL 0.5 ML NEB NEB ONE (05:15)
[2017-08-18] MEDS ORDERED: LORazepam 2MG/ML-1ML VIAL IV ONE (05:15)
[2017-08-18 05:28] VITALS: BP 126/89
[2017-08-18] MEDS: methylPREDNISolone SOD SUCC 40 MG/ML VL IV SCH ×5 (05:59→23:37)
[2017-08-18] MEDS: SODIUM CHLORIDE 0.9% 1,000 ML IV SCH ×2 (07:37→23:37)
[2017-08-18 08:57] VITALS: BP 118/79
[2017-08-18] MEDS: FAMOTIDINE 20 MG TAB PO SCH ×2 (09:50→21:57)
[2017-08-18] MEDS: ENOXAPARIN SOD 40 MG/0.4 ML SYRINGE SC SCH (09:51)
[2017-08-18] MEDS: TIOTROPIUM IN SCH (09:51)
[2017-08-18] MEDS: ALBUTEROL SULF 2.5 MG/0.5ML(0.5%) NEB SOLN NEB PRN (11:46)
[2017-08-18 13:00] VITALS: BP 140/74
[2017-08-18 17:00] VITALS: BP 135/96
[2017-08-18] MEDS ORDERED: PROMETHAZINE HCL 25 MG/ML 1ML IV PRN (20:30)
[2017-08-18] MEDS ORDERED: TEMAZEPAM 15 MG CAP PO ONE (20:30)
[2017-08-18 21:34] VITALS: BP 153/101
[2017-08-19] VITALS (58 sets, daily range): BP systolic 92–149; BP diastolic 43–102
[2017-08-19] MEDS: ALBUTEROL SULF 2.5 MG/0.5ML(0.5%) NEB SOLN NEB SCH ×6 (02:00→22:10)
[2017-08-19] MEDS: diphenhdrAMINE HCL 50 MG/1 ML VL IV PRN (02:39)
[2017-08-19] MEDS: LORazepam 2MG/ML-1ML VIAL IV PRN (02:39)
[2017-08-19] MEDS ORDERED: EPINEPHrine HCL 0.5 ML NEB ONE (03:05)
[2017-08-19] MEDS ORDERED: SUCCINYLCHOLINE CHLORIDE 20 MG/ML 10ML VIAL IV ONE ×2 (03:36→03:40)
[2017-08-19] MEDS ORDERED: ETOMIDATE (2MG/ML) 20ML VIAL IV ONE ×2 (03:36→03:40)
[2017-08-19] MEDS ORDERED: ROCURONIUM 10MG/ML 10ML VIAL IV ONE (03:40)
[2017-08-19] MEDS ORDERED: PROPOFOL 100 ML IV ONE ×2 (03:44→05:56)
[2017-08-19] MEDS ORDERED: LORazepam 2MG/ML-1ML VIAL IV PRN (03:45)
[2017-08-19] MEDS ORDERED: MIDAZOLAM HCL 5 MG/ML-1ML VIAL ONE (03:57)
[2017-08-19] MEDS ORDERED: SODIUM CHLORIDE 0.9% 500 ML IV ONE (05:15)
[2017-08-19] MEDS: methylPREDNISolone SOD SUCC 40 MG/ML VL IV SCH ×4 (05:15→23:32)
[2017-08-19] MEDS: DOXYCYCLINE HYC 100MG/250ML 250 ML IV SCH ×2 (05:15→15:30)
[2017-08-19] MEDS: MIDAZOLAM DRIP 50 mg/50mL 50 ML IV SCH ×5 (07:09→21:29)
[2017-08-19] MEDS: PROPOFOL 100 ML IV SCH ×5 (07:09→22:51)
[2017-08-19 07:51] LABS: Basophils # (auto) 0 uL; Basophils % (auto) 0.4 % (0.0-2.0); Eosinophils # (auto) 0 uL; Hematocrit 34.1 % (36.0-46.0); Hemoglobin 11.4 g/dL (12.2-16.2); Lymphocytes # (auto) 0.5 uL; Lymphocytes % (auto) 4.1 % (10.0-50.0); Mean Corpuscular Hemoglobin 30.8 pg (28.0-32.0); Mean Corpuscular Hgb Conc. 33.4 g/dL (32.0-36.0); Monocytes # (auto) 1.2 uL; Monocytes % (auto) 9.7 % (0.0-12.0); Neutrophils % (auto) 85.8 % (37.0-80.0); Platelet Count (auto) 234 10^3/uL (140-450); Red Blood Cells 3.71 10^6/uL (4.0-5.20); Red Cell Distribution Width 15.2 % (11.8-14.3); White Blood Cell 12.8 10^3/uL (4.4-10.8)
[2017-08-19 08:02] LABS: BUN/Creatinine Ratio 19.7; Calcium 8.3 mg/dL (8.5-10.1); Potassium 3.5 mmol/L (3.5-5.1)
[2017-08-19] MEDS: FAMOTIDINE 20 MG TAB PO SCH ×2 (10:00→21:27)
[2017-08-19] MEDS: ENOXAPARIN SOD 40 MG/0.4 ML SYRINGE SC SCH (10:00)
[2017-08-19] MEDS: SODIUM CHLORIDE 0.9% 1,000 ML IV SCH ×2 (10:05→23:25)
[2017-08-20] VITALS (58 sets, daily range): BP systolic 108–165; BP diastolic 57–98
[2017-08-20] MEDS: MIDAZOLAM DRIP 50 mg/50mL 50 ML IV SCH ×4 (00:30→09:47)
[2017-08-20] MEDS: DOXYCYCLINE HYC 100MG/250ML 250 ML IV SCH ×2 (03:22→15:51)
[2017-08-20 04:34] LABS: Basophils # (auto) 0 uL; Basophils % (auto) 0.3 % (0.0-2.0); Eosinophils # (auto) 0 uL; Eosinophils % (auto) 0.1 % (0.0-7.0); Hematocrit 37.2 % (36.0-46.0); Hemoglobin 12.5 g/dL (12.2-16.2); Lymphocytes # (auto) 0.9 uL; Lymphocytes % (auto) 8.2 % (10.0-50.0); Mean Corpuscular Hemoglobin 30.4 pg (28.0-32.0); Mean Corpuscular Hgb Conc. 33.7 g/dL (32.0-36.0); Mean Corpuscular Volume 90.2 fL (80.0-100.0); Monocytes # (auto) 0.6 uL; Monocytes % (auto) 5.5 % (0.0-12.0); Neutrophils # (auto) 9.2 uL; Neutrophils % (auto) 85.9 % (37.0-80.0); Nucleated Red Blood Cells % 0.1 %; Platelet Count (auto) 143 10^3/uL (140-450); Red Blood Cells 4.12 10^6/uL (4.0-5.20); Red Cell Distribution Width 15.8 % (11.8-14.3); White Blood Cell 10.7 10^3/uL (4.4-10.8)
[2017-08-20] MEDS: PROPOFOL 100 ML IV SCH ×2 (05:27→09:41)
[2017-08-20] MEDS: methylPREDNISolone SOD SUCC 40 MG/ML VL IV SCH ×4 (05:27→23:55)
[2017-08-20] MEDS: ALBUTEROL SULF 2.5 MG/0.5ML(0.5%) NEB SOLN NEB SCH ×5 (06:16→22:45)
[2017-08-20] MEDS: ENOXAPARIN SOD 40 MG/0.4 ML SYRINGE SC SCH (09:41)
[2017-08-20] MEDS: FAMOTIDINE 20 MG TAB PO SCH ×2 (09:41→22:17)
[2017-08-20] MEDS ORDERED: DEXMEDETOMIDINE HCL 400 MCG in D5W 5% 96 ML IV SCH (10:45)
[2017-08-20] MEDS: SODIUM CHLORIDE 0.9% 1,000 ML IV SCH (12:04)
[2017-08-20] MEDS: ONDANSETRON HCL 4 MG/2 ML VIAL IV PRN ×2 (17:23→21:36)
[2017-08-20] MEDS: MORPHINE SULFATE 4 MG/ML SYR/VIAL IV PRN ×2 (17:24→21:35)
[2017-08-20] MEDS: LORazepam 2MG/ML-1ML VIAL IV PRN (20:24)
[2017-08-20] MEDS: diphenhdrAMINE HCL 50 MG/1 ML VL IV PRN (20:25)
[2017-08-21] MEDS: MORPHINE SULFATE 4 MG/ML SYR/VIAL IV PRN ×6 (01:34→22:06)
[2017-08-21] MEDS: ONDANSETRON HCL 4 MG/2 ML VIAL IV PRN ×6 (01:34→22:06)
[2017-08-21] MEDS: ALBUTEROL SULF 2.5 MG/0.5ML(0.5%) NEB SOLN NEB SCH ×6 (02:27→22:08)
[2017-08-21] MEDS: diphenhdrAMINE HCL 50 MG/1 ML VL IV PRN ×4 (02:42→20:58)
[2017-08-21] MEDS: LORazepam 2MG/ML-1ML VIAL IV PRN ×4 (02:42→20:58)
[2017-08-21] MEDS: DOXYCYCLINE HYC 100MG/250ML 250 ML IV SCH (03:57)
[2017-08-21 05:24] VITALS: BP 140/78
[2017-08-21] MEDS: methylPREDNISolone SOD SUCC 40 MG/ML VL IV SCH ×4 (05:43→22:06)
[2017-08-21 07:24] LABS: Albumin 3.3 g/dL (3.4-5.0); BUN/Creatinine Ratio 18.7; Calcium 8.2 mg/dL (8.5-10.1); Potassium 4.1 mmol/L (3.5-5.1)
[2017-08-21 07:27] LABS: Bilirubin, Total 0.3 mg/dL (0.2-1.0)
[2017-08-21 08:35] LABS: Basophils # (auto) 0 uL; Basophils % (auto) 0.2 % (0.0-2.0); Eosinophils # (auto) 0 uL; Hematocrit 37.2 % (36.0-46.0); Hemoglobin 12.4 g/dL (12.2-16.2); Lymphocytes # (auto) 0.6 uL; Lymphocytes % (auto) 6.5 % (10.0-50.0); Mean Corpuscular Hgb Conc. 33.4 g/dL (32.0-36.0); Mean Corpuscular Volume 89.9 fL (80.0-100.0); Monocytes # (auto) 0.7 uL; Monocytes % (auto) 7.5 % (0.0-12.0); Neutrophils # (auto) 8.1 uL; Neutrophils % (auto) 85.8 % (37.0-80.0); Nucleated Red Blood Cells % 0.1 %; Platelet Count (auto) 240 10^3/uL (140-450); Red Blood Cells 4.14 10^6/uL (4.0-5.20); White Blood Cell 9.4 10^3/uL (4.4-10.8)
[2017-08-21 08:47] VITALS: BP 155/100
[2017-08-21] MEDS: ENOXAPARIN SOD 40 MG/0.4 ML SYRINGE SC SCH (09:34)
[2017-08-21] MEDS: FAMOTIDINE 20 MG TAB PO SCH ×2 (09:34→20:58)
[2017-08-21 12:32] VITALS: BP 131/92
[2017-08-21 17:00] VITALS: BP 130/76
[2017-08-21 22:00] VITALS: BP 118/68
[2017-08-22] MEDS: MORPHINE SULFATE 4 MG/ML SYR/VIAL IV PRN ×4 (02:02→14:04)
[2017-08-22] MEDS: ONDANSETRON HCL 4 MG/2 ML VIAL IV PRN ×4 (02:02→14:04)
[2017-08-22] MEDS: ALBUTEROL SULF 2.5 MG/0.5ML(0.5%) NEB SOLN NEB SCH ×4 (02:16→15:00)
[2017-08-22] MEDS: LORazepam 2MG/ML-1ML VIAL IV PRN ×3 (03:16→15:07)
[2017-08-22] MEDS: diphenhdrAMINE HCL 50 MG/1 ML VL IV PRN ×3 (03:17→15:07)
[2017-08-22 05:00] VITALS: BP 130/79
[2017-08-22] MEDS: methylPREDNISolone SOD SUCC 40 MG/ML VL IV SCH ×2 (06:11→13:45)
[2017-08-22 07:14] LABS: Hemoglobin 12.5 g/dL (12.2-16.2); Mean Corpuscular Hemoglobin 30.5 pg (28.0-32.0); Mean Corpuscular Hgb Conc. 33.7 g/dL (32.0-36.0); Mean Corpuscular Volume 90.5 fL (80.0-100.0); Platelet Count (auto) 217 10^3/uL (140-450); Red Blood Cells 4.09 10^6/uL (4.0-5.20); Red Cell Distribution Width 15.1 % (11.8-14.3); White Blood Cell 10.8 10^3/uL (4.4-10.8)
[2017-08-22 07:24] LABS: Basophils % (manual) 0 (0.0-2.0); Blast Cells 0; Eosinophils % (manual) 0 (0-7); Metamyelocytes % 0; Myelocytes % 0; Promyelocytes % 0; Reactive Lymphocytes 0
[2017-08-22 07:27] LABS: BUN/Creatinine Ratio 39.3; Calcium 8.4 mg/dL (8.5-10.1); Potassium 4.4 mmol/L (3.5-5.1)
[2017-08-22 08:34] LABS: Band Neutrophils % (manual) 2; Lymphocytes % (manual) 15 (10.0-50.0); Monocytes % (manual) 13 (0-12)
[2017-08-22 09:00] VITALS: BP 128/60
[2017-08-22] MEDS: FAMOTIDINE 20 MG TAB PO SCH (10:03)
[2017-08-22] MEDS: ENOXAPARIN SOD 40 MG/0.4 ML SYRINGE SC SCH (10:04)
[2017-08-22 13:00] VITALS: BP 128/91
== END 2017-08-22 16:45 | disposition home or self-care (01) | DRG 143 ==
LOC: EDBD 12:17 → ER 12:17 → TELE 12:18 → TELE-CENTR 18:39 → ICU WEST 08-19 04:52 → WEST WING 08-20 21:49
PROVIDERS: ADMIT Internal Medicine; ATTEND Internal Medicine
PROC: 5A1945Z Respiratory Ventilation, 24-96 Consecutive Hours (ICD-10-PCS; principal; 2017-08-19)
PROC: 0BH17EZ Insertion of Endotracheal Airway into Trachea, Via Natural or Artificial Opening (ICD-10-PCS; 2017-08-19)
DX: J80 Acute respiratory distress syndrome (principal); Z99.81 Dependence on supplemental oxygen; E44.0 Moderate protein-calorie malnutrition; J45.901 Unspecified asthma with (acute) exacerbation; R73.9 Hyperglycemia, unspecified; F41.9 Anxiety disorder, unspecified; E87.6 Hypokalemia; Z86.711 Personal history of pulmonary embolism; Z68.29 Body mass index [BMI] 29.0-29.9, adult; Z80.0 Family history of malignant neoplasm of digestive organs; Z80.1 Family history of malignant neoplasm of trachea, bronchus and lung; Z80.3 Family history of malignant neoplasm of breast; Z80.41 Family history of malignant neoplasm of ovary; Z80.8 Family history of malignant neoplasm of other organs or systems; Z81.8 Family history of other mental and behavioral disorders; Z82.0 Family history of epilepsy and other diseases of the nervous system; Z82.49 Family history of ischemic heart disease and other diseases of the circulatory system; Z82.5 Family history of asthma and other chronic lower respiratory diseases; Z82.62 Family history of osteoporosis; Z83.3 Family history of diabetes mellitus; Z82.3 Family history of stroke; Z91.010 Allergy to peanuts
CPT/HCPCS: 36415; 36600; 71045; 71046; 80048; 80053; 81001; 82805; 82962; 84132; 85007; 85025; 85027; 87081; 94002; 94003; 94640; 96361; 96374; 96375; 99291; J0330; J2250; J2405; J2704; J3490; J7060

== ENCOUNTER 2017-09-06 07:00 | Inpatient (IN) | payer OTHER ==
[~2017-09-06] VITALS: Ht 167.6 cm; Wt 79.7 kg
[2017-09-06] MEDS ORDERED: SODIUM CHLORIDE 0.9% 1,000 ML IV ONE (07:19)
[2017-09-06] MEDS ORDERED: methylPREDNISolone SOD SUCC 125 MG/2 ML VL IV ONE (07:30)
[2017-09-06] MEDS ORDERED: IPRATROPIUM BROM 0.5 MG/2.5ML INH SOL HHN ONE (07:30)
[2017-09-06] MEDS ORDERED: ALBUTEROL SULF 2.5 MG/0.5ML(0.5%) NEB SOLN HHN ONE (07:30)
[2017-09-06 08:36] LABS: Basophils # (auto) 0 uL; Basophils % (auto) 0.2 % (0.0-2.0); Eosinophils # (auto) 0 uL; Hematocrit 40.3 % (36.0-46.0); Hemoglobin 13.7 g/dL (12.2-16.2); Lymphocytes # (auto) 1.9 uL; Lymphocytes % (auto) 21.8 % (10.0-50.0); Mean Corpuscular Hemoglobin 30.3 pg (28.0-32.0); Mean Corpuscular Volume 89.3 fL (80.0-100.0); Monocytes # (auto) 0.7 uL; Monocytes % (auto) 8.3 % (0.0-12.0); Neutrophils # (auto) 6.1 uL; Neutrophils % (auto) 69.7 % (37.0-80.0); Platelet Count (auto) 189 10^3/uL (140-450); Red Blood Cells 4.51 10^6/uL (4.0-5.20); Red Cell Distribution Width 15.5 % (11.8-14.3); White Blood Cell 8.7 10^3/uL (4.4-10.8)
[2017-09-06 08:52] LABS: Albumin 3.7 g/dL (3.4-5.0); Calcium 8.7 mg/dL (8.5-10.1); Potassium 3.1 mmol/L (3.5-5.1)
[2017-09-06 08:54] LABS: BUN/Creatinine Ratio 14.1
[2017-09-06] MEDS ORDERED: LORazepam 2MG/ML-1ML VIAL IV ONE (09:00)
[2017-09-06 09:01] LABS: Bilirubin, Total 0.5 mg/dL (0.2-1.0); Total Protein 6.8 g/dL (6.4-8.2)
[2017-09-06] MEDS ORDERED: NITROGLYCERIN 0.4 MG SL TAB SL PRN (11:30)
[2017-09-06] MEDS ORDERED: POTASSIUM CHLORIDE 8 MEQ TAB PO ONE (11:30)
[2017-09-06] MEDS ORDERED: TEMAZEPAM 15 MG CAP PO PRN (11:30)
[2017-09-06] MEDS ORDERED: MORPHINE SULFATE 8mg/ml INJ SDV IV PRN (11:30)
[2017-09-06] MEDS ORDERED: ACETAMINOPHEN 325 MG TAB PO PRN (11:30)
[2017-09-06] MEDS ORDERED: AZITHROMYCIN 500MG/ 250ML 250 ML IV ONE (11:30)
[2017-09-06] MEDS ORDERED: cefTRIAXone 1GM/10ml IVPUSH 10 ML IV ONE (11:30)
[2017-09-06] MEDS ORDERED: DOCUSATE SOD 100 MG CAP PO PRN (11:30)
[2017-09-06] MEDS ORDERED: HYDROcodone-ACET 5/325MG TAB PO PRN (11:30)
[2017-09-06] MEDS ORDERED: FAMOTIDINE 20 MG TAB PO ONE (12:00)
[2017-09-06] MEDS ORDERED: busPIRone HCL 10 MG TAB PO ONE (12:00)
[2017-09-06] MEDS ORDERED: MULTIPLE VITAMIN TAB PO ONE (12:00)
[2017-09-06] MEDS: methylPREDNISolone SOD SUCC 40 MG/ML VL IV SCH ×2 (12:24→18:10)
[2017-09-06] MEDS: MORPHINE SULFATE 8mg/ml INJ SDV IV PRN ×2 (13:16→21:57)
[2017-09-06] MEDS: ONDANSETRON HCL 4 MG/2 ML VIAL IV PRN ×2 (13:16→21:57)
[2017-09-06 13:47] LABS: Urine Bacteria NONE SEEN /hpf (None Seen); Urine Blood Negative /uL (Negative); Urine Specific Gravity 1.016 (1.001-1.035); Urine WBC 1 /hpf (0 - 5)
[2017-09-06] MEDS: ALBUTEROL SULF 2.5 MG/0.5ML(0.5%) NEB SOLN NEB SCH ×3 (14:23→22:18)
[2017-09-06] MEDS: SODIUM CHLOR 0.9% PF (SALINE LOCK) 10ML VIAL/SYR IV SCH ×2 (14:37→22:12)
[2017-09-06 15:27] LABS: Lactic Acid w/Reflex 8.1 mmol/L (0.4-2.0)
[2017-09-06 20:30] VITALS: BP 125/53
[2017-09-06 21:00] VITALS: BP 125/53
[2017-09-06] MEDS: FAMOTIDINE 20 MG TAB PO SCH (21:56)
[2017-09-06 22:00] VITALS: BP_SYST 109; BP_SYST 125; BP_DIAS 45; BP_DIAS 53
[2017-09-06] MEDS: busPIRone HCL 10 MG TAB PO SCH (22:00)
[2017-09-06] MEDS: TROLAMINE SALICYLATE 10% TOP CREAM TOP SCH (22:02)
[2017-09-06] MEDS ORDERED: PROMETHAZINE HCL 25 MG/ML 1ML IV ONE (23:00)
[2017-09-07] MEDS: diphenhdrAMINE HCL 50 MG/1 ML VL IV PRN ×4 (00:29→19:38)
[2017-09-07] MEDS: methylPREDNISolone SOD SUCC 40 MG/ML VL IV SCH ×4 (00:30→18:00)
[2017-09-07] MEDS ORDERED: MONT5CHW17 PO (01:30)
[2017-09-07] MEDS: ALBUTEROL SULF 2.5 MG/0.5ML(0.5%) NEB SOLN NEB SCH ×6 (02:05→22:00)
[2017-09-07 04:59] VITALS: BP 122/81
[2017-09-07 05:36] LABS: Basophils # (auto) 0 uL; Eosinophils # (auto) 0 uL; Hematocrit 39.6 % (36.0-46.0); Hemoglobin 13.3 g/dL (12.2-16.2); Lymphocytes # (auto) 0.6 uL; Lymphocytes % (auto) 7.4 % (10.0-50.0); Mean Corpuscular Hemoglobin 30.5 pg (28.0-32.0); Mean Corpuscular Hgb Conc. 33.7 g/dL (32.0-36.0); Mean Corpuscular Volume 90.6 fL (80.0-100.0); Monocytes # (auto) 0.5 uL; Monocytes % (auto) 6.6 % (0.0-12.0); Neutrophils # (auto) 7.1 uL; Platelet Count (auto) 197 10^3/uL (140-450); Red Blood Cells 4.37 10^6/uL (4.0-5.20); White Blood Cell 8.2 10^3/uL (4.4-10.8)
[2017-09-07 05:54] LABS: Albumin 3.8 g/dL (3.4-5.0); BUN/Creatinine Ratio 14.3; Bilirubin, Total 0.3 mg/dL (0.2-1.0); Calcium 9.1 mg/dL (8.5-10.1); Potassium 4.4 mmol/L (3.5-5.1); Total Protein 7.1 g/dL (6.4-8.2)
[2017-09-07] MEDS: ONDANSETRON HCL 4 MG/2 ML VIAL IV PRN ×5 (06:07→22:13)
[2017-09-07] MEDS: MORPHINE SULFATE 8mg/ml INJ SDV IV PRN ×5 (06:09→22:13)
[2017-09-07] MEDS: SODIUM CHLOR 0.9% PF (SALINE LOCK) 10ML VIAL/SYR IV SCH ×3 (06:24→22:12)
[2017-09-07 08:00] VITALS: BP 109/63
[2017-09-07] MEDS: MULTIPLE VITAMIN TAB PO SCH (08:50)
[2017-09-07] MEDS: FAMOTIDINE 20 MG TAB PO SCH ×2 (08:50→22:11)
[2017-09-07] MEDS: cefTRIAXone 1GM/10ml IVPUSH 10 ML IV SCH (08:51)
[2017-09-07] MEDS: busPIRone HCL 10 MG TAB PO SCH (08:51)
[2017-09-07] MEDS: TROLAMINE SALICYLATE 10% TOP CREAM TOP SCH ×2 (08:53→22:12)
[2017-09-07] MEDS ORDERED: AZITHROMYCIN 500MG/ 250ML 200 ML IV SCH (10:00)
[2017-09-07 12:00] VITALS: BP 118/68
[2017-09-07 17:02] VITALS: BP 114/73
[2017-09-07] MEDS ORDERED: guaiFENesin-DM 100/10mg/5ml SYR PO PRN (20:15)
[2017-09-07] MEDS: LORazepam 0.5 MG TAB PO PRN (20:55)
[2017-09-07 22:00] VITALS: BP 115/66
[2017-09-08] MEDS: methylPREDNISolone SOD SUCC 40 MG/ML VL IV SCH ×3 (00:20→11:46)
[2017-09-08] MEDS: diphenhdrAMINE HCL 50 MG/1 ML VL IV PRN ×3 (01:42→13:18)
[2017-09-08] MEDS: ONDANSETRON HCL 4 MG/2 ML VIAL IV PRN ×5 (02:11→14:37)
[2017-09-08] MEDS: MORPHINE SULFATE 8mg/ml INJ SDV IV PRN ×4 (02:13→14:37)
[2017-09-08] MEDS: ALBUTEROL SULF 2.5 MG/0.5ML(0.5%) NEB SOLN NEB SCH ×4 (02:29→14:15)
[2017-09-08 05:00] VITALS: BP 119/68
[2017-09-08] MEDS: SODIUM CHLOR 0.9% PF (SALINE LOCK) 10ML VIAL/SYR IV SCH ×2 (06:20→11:46)
[2017-09-08 07:44] VITALS: BP 117/68
[2017-09-08] MEDS: MULTIPLE VITAMIN TAB PO SCH (08:19)
[2017-09-08] MEDS: FAMOTIDINE 20 MG TAB PO SCH (08:19)
[2017-09-08] MEDS: LORazepam 0.5 MG TAB PO PRN (08:19)
[2017-09-08] MEDS: cefTRIAXone 1GM/10ml IVPUSH 10 ML IV SCH (08:20)
[2017-09-08] MEDS: TROLAMINE SALICYLATE 10% TOP CREAM TOP SCH (08:21)
[2017-09-08] MEDS ORDERED: AZITHROMYCIN 500MG/ 250ML 250 ML IV SCH (10:00)
[2017-09-08 14:32] VITALS: BP 123/76
== END 2017-09-08 14:59 | disposition home or self-care (01) | DRG 144 ==
LOC: EDBD 07:00 → ER 07:04 → TELE 07:05 → TELE-CENTR 20:25
PROVIDERS: ADMIT Internal Medicine; ATTEND Internal Medicine Pulmonary Disease
DX: J20.9 Acute bronchitis, unspecified (principal); J45.901 Unspecified asthma with (acute) exacerbation; N18.2 Chronic kidney disease, stage 2 (mild); E87.6 Hypokalemia; F41.9 Anxiety disorder, unspecified; Z82.49 Family history of ischemic heart disease and other diseases of the circulatory system; Z87.440 Personal history of urinary (tract) infections
CPT/HCPCS: 36415; 71045; 80053; 81001; 83605; 85025; 87040; 87081; 87086; 93005; 94640; 94644; 94761; 96361; 96365; 96375; J2270; J2405

== ENCOUNTER 2017-09-09 04:43 | Emergency (ER) | payer OTHER ==
[~2017-09-09] VITALS: Ht 167.6 cm; Wt 72.6 kg
[~2017-09-09 04:43] MED LIST changes: +MONT5CHW17 PO
[2017-09-09] MEDS ORDERED: SODIUM CHLORIDE 0.9% 1,000 ML IV ONE ×4 (07:45→15:15)
[2017-09-09] MEDS ORDERED: ASPirin 81 mg TAB PO ONE (07:45)
[2017-09-09] MEDS ORDERED: PROMETHAZINE HCL 25 MG/ML 1ML IV ONE ×2 (08:00→15:00)
[2017-09-09] MEDS ORDERED: MORPHINE SULFATE 8mg/ml INJ SDV IV ONE ×2 (08:00→15:00)
[2017-09-09 08:18] LABS: Basophils # (auto) 0 uL; Basophils % (auto) 0.2 % (0.0-2.0); Eosinophils # (auto) 0 uL; Hematocrit 39.4 % (36.0-46.0); Hemoglobin 12.7 g/dL (12.2-16.2); Lymphocytes # (auto) 0.7 uL; Lymphocytes % (auto) 4.3 % (10.0-50.0); Mean Corpuscular Hemoglobin 29.5 pg (28.0-32.0); Mean Corpuscular Hgb Conc. 32.3 g/dL (32.0-36.0); Mean Corpuscular Volume 91.4 fL (80.0-100.0); Monocytes # (auto) 0.6 uL; Monocytes % (auto) 3.9 % (0.0-12.0); Neutrophils # (auto) 14.1 uL; Neutrophils % (auto) 91.6 % (37.0-80.0); Platelet Count (auto) 260 10^3/uL (140-450); Red Blood Cells 4.31 10^6/uL (4.0-5.20); Red Cell Distribution Width 16.3 % (11.8-14.3); White Blood Cell 15.4 10^3/uL (4.4-10.8)
[2017-09-09 08:26] LABS: INR 0.91 (0.9-1.15); Partial Thromboplastin Time 23.2 sec (22.64-33.71); Prothrombin Time 9.9 sec (9.37-12.3)
[2017-09-09] MEDS ORDERED: ALBUTEROL SULF 2.5 MG/0.5ML(0.5%) NEB SOLN NEB ONE ×2 (08:30→15:00)
[2017-09-09] MEDS ORDERED: AZITHROMYCIN 500MG/ 250ML 250 ML IV ONE (08:30)
[2017-09-09] MEDS ORDERED: methylPREDNISolone SOD SUCC 125 MG/2 ML VL IV ONE (08:30)
[2017-09-09] MEDS ORDERED: IPRATROPIUM BROM 0.5 MG/2.5ML INH SOL NEB ONE (08:30)
[2017-09-09 08:40] LABS: Albumin 3.7 g/dL (3.4-5.0); BUN/Creatinine Ratio 26.7; Bilirubin, Total 0.3 mg/dL (0.2-1.0); Calcium 8.5 mg/dL (8.5-10.1); Potassium 4.7 mmol/L (3.5-5.1)
[2017-09-09] MEDS ORDERED: diphenhdrAMINE HCL 50 MG/1 ML VL IV ONE ×2 (09:00→15:15)
[2017-09-09] MEDS ORDERED: LORazepam 2MG/ML-1ML VIAL IV ONE (09:45)
[2017-09-09] MEDS ORDERED: LORazepam 2MG/ML-1ML VIAL ONE (09:48)
[2017-09-09 10:10] LABS: Lactic Acid w/Reflex 6.6 mmol/L (0.4-2.0)
[2017-09-09 13:49] LABS: Urine Bacteria NONE SEEN /hpf (None Seen); Urine Blood Negative /uL (Negative); Urine Mucus FEW (None Seen); Urine Specific Gravity 1.032 (1.001-1.035); Urine WBC 1 /hpf (0 - 5)
[2017-09-09] MEDS ORDERED: diphenhdrAMINE HCL 50 MG/1 ML VL ONE (15:16)
[2017-09-09] MEDS ORDERED: cefTRIAXone 1GM/10ml IVPUSH 10 ML IV ONE (17:15)
[2017-09-09 17:47] VITALS: BP 141/83
== END 2017-09-09 18:20 | disposition short-term general hospital (02) ==
LOC: EDBD 04:43 → ER 04:49
DX: J45.901 Unspecified asthma with (acute) exacerbation (principal); D72.829 Elevated white blood cell count, unspecified; F12.10 Cannabis abuse, uncomplicated; R09.02 Hypoxemia; Z79.82 Long term (current) use of aspirin
CPT/HCPCS: 36415; 36600; 71045; 80053; 81001; 81025; 82805; 83605; 83735; 84443; 84702; 85025; 85610; 85730; 87040; 94640; 94644; 96361; 96365; 96375; 96376; 99285; J0456; J1200; J2060; J2270; J2550; J2930; J7030

== ENCOUNTER 2018-04-15 10:12 | Inpatient (IN) | payer OTHER ==
[~2018-04-15] VITALS: Ht 162.6 cm; Wt 86.7 kg
[~2018-04-15 10:12] MED LIST changes: +ALBU1SYP PO; +AZIT250T8 PO; +FLUT250INH IN; +ONDA4TAB5 PO; +PRE5T PO
[2018-04-15] MEDS ORDERED: methylPREDNISolone SOD SUCC 125 MG/2 ML VL IV ONE (10:30)
[2018-04-15] MEDS ORDERED: ALBUTEROL SULF 2.5 MG/0.5ML(0.5%) NEB SOLN NEB ONE (10:30)
[2018-04-15] MEDS ORDERED: IPRATROPIUM BROM 0.5 MG/2.5ML INH SOL NEB ONE (10:30)
[2018-04-15] MEDS ORDERED: cefTRIAXone 1GM/50ML D5W 50 ML IV ONE ×2 (11:00)
[2018-04-15 11:10] LABS: Basophils # (auto) 0 uL; Basophils % (auto) 0.1 % (0.0-2.0); Eosinophils # (auto) 0 uL; Hematocrit 42.9 % (36.0-46.0); Hemoglobin 14.3 g/dL (12.2-16.2); Lymphocytes # (auto) 2.5 uL; Lymphocytes % (auto) 32.1 % (10.0-50.0); Mean Corpuscular Hemoglobin 29.9 pg (28.0-32.0); Mean Corpuscular Hgb Conc. 33.4 g/dL (32.0-36.0); Mean Corpuscular Volume 89.5 fL (80.0-100.0); Monocytes # (auto) 0.6 uL; Monocytes % (auto) 7.4 % (0.0-12.0); Neutrophils # (auto) 4.7 uL; Neutrophils % (auto) 60.4 % (37.0-80.0); Platelet Count (auto) 255 10^3/uL (140-450); Red Blood Cells 4.79 10^6/uL (4.0-5.20); Red Cell Distribution Width 15.2 % (11.8-14.3); White Blood Cell 7.8 10^3/uL (4.4-10.8)
[2018-04-15] MEDS ORDERED: LORazepam 2MG/ML-1ML VIAL ONE (11:16)
[2018-04-15 11:26] LABS: Albumin 3.7 g/dL (3.4-5.0); Calcium 8.5 mg/dL (8.5-10.1); Potassium 3.5 mmol/L (3.5-5.1)
[2018-04-15] MEDS: SODIUM CHLORIDE 0.9% 1,000 ML IV SCH ×2 (11:26→12:34)
[2018-04-15 11:29] LABS: BUN/Creatinine Ratio 12.5; Bilirubin, Total 0.5 mg/dL (0.2-1.0); Total Protein 6.6 g/dL (6.4-8.2)
[2018-04-15] MEDS ORDERED: LORazepam 2MG/ML-1ML VIAL IV ONE (11:30)
[2018-04-15] MEDS ORDERED: PANTOPRAZOLE 40 MG TAB PO ONE (11:30)
[2018-04-15] MEDS ORDERED: MORPHINE SULFATE 4 MG/ML SYR/VIAL IV PRN (11:30)
[2018-04-15] MEDS ORDERED: DOCUSATE SOD 100 MG CAP PO PRN (11:30)
[2018-04-15] MEDS ORDERED: MULTIPLE VITAMIN TAB PO ONE (11:45)
[2018-04-15] MEDS: methylPREDNISolone SOD SUCC 40 MG/ML VL IV SCH ×3 (12:34→23:24)
[2018-04-15] MEDS ORDERED: diphenhdrAMINE HCL 50 MG/1 ML VL IV ONE (12:45)
[2018-04-15 13:07] LABS: Urine Bacteria NONE SEEN /hpf (None Seen); Urine Blood Negative /uL (Negative); Urine Specific Gravity 1.012 (1.001-1.035); Urine WBC <1 /hpf (0 - 5)
[2018-04-15] MEDS: ALBUTEROL SULF 2.5 MG/0.5ML(0.5%) NEB SOLN NEB SCH ×3 (14:00→22:03)
[2018-04-15] MEDS: ONDANSETRON HCL 4 MG/2 ML VIAL IV PRN (18:19)
[2018-04-15] MEDS: LORazepam 2MG/ML-1ML VIAL IV PRN (18:19)
[2018-04-15 19:39] VITALS: BP 108/64
[2018-04-15] MEDS: MONTELUKAST SODIUM 10 MG TAB PO SCH (20:24)
[2018-04-15] MEDS: ACETAMINOPHEN 325 MG TAB PO PRN (20:25)
[2018-04-15] MEDS: traMADol HCL 50 MG TAB PO PRN (20:25)
[2018-04-15] MEDS: HYDROcodone-ACET 5/325MG TAB PO PRN (20:26)
[2018-04-15] MEDS: MORPHINE SULFATE 4 MG/ML SYR/VIAL IV PRN (21:36)
[2018-04-15] MEDS: diphenhdrAMINE HCL 25 MG CAP PO PRN (21:42)
[2018-04-15] MEDS: VILANTEROL IN SCH (21:42)
[2018-04-15] MEDS: [UNRECOGNIZED DRUG - OTHER] IN SCH (21:42)
[2018-04-15 22:00] VITALS: BP 118/77
[2018-04-15] MEDS ORDERED: FAMOTIDINE 20 MG TAB PO SCH (22:00)
[2018-04-15] MEDS: TEMAZEPAM 15 MG CAP PO PRN (23:24)
[2018-04-16] MEDS: HYDROcodone-ACET 5/325MG TAB PO PRN ×4 (00:47→19:43)
[2018-04-16] MEDS: ACETAMINOPHEN 325 MG TAB PO PRN ×2 (00:48→11:02)
[2018-04-16] MEDS: LORazepam 2MG/ML-1ML VIAL IV PRN ×4 (00:52→18:30)
[2018-04-16] MEDS: ONDANSETRON HCL 4 MG/2 ML VIAL IV PRN ×5 (00:52→20:35)
[2018-04-16] MEDS: ALBUTEROL SULF 2.5 MG/0.5ML(0.5%) NEB SOLN NEB SCH ×6 (01:59→22:41)
[2018-04-16] MEDS: MORPHINE SULFATE 4 MG/ML SYR/VIAL IV PRN ×5 (01:59→20:27)
[2018-04-16] MEDS: diphenhdrAMINE HCL 25 MG CAP PO PRN ×3 (04:48→20:27)
[2018-04-16 05:00] VITALS: BP 124/79
[2018-04-16] MEDS: methylPREDNISolone SOD SUCC 40 MG/ML VL IV SCH ×3 (06:23→18:30)
[2018-04-16 06:48] LABS: Basophils # (auto) 0 uL; Basophils % (auto) 0.1 % (0.0-2.0); Eosinophils # (auto) 0 uL; Hematocrit 39.2 % (36.0-46.0); Hemoglobin 13.4 g/dL (12.2-16.2); Lymphocytes # (auto) 0.7 uL; Lymphocytes % (auto) 6.8 % (10.0-50.0); Mean Corpuscular Hemoglobin 30.6 pg (28.0-32.0); Mean Corpuscular Hgb Conc. 34.1 g/dL (32.0-36.0); Mean Corpuscular Volume 89.5 fL (80.0-100.0); Monocytes # (auto) 0.5 uL; Monocytes % (auto) 4.4 % (0.0-12.0); Neutrophils # (auto) 9.2 uL; Neutrophils % (auto) 88.7 % (37.0-80.0); Platelet Count (auto) 261 10^3/uL (140-450); Red Blood Cells 4.38 10^6/uL (4.0-5.20); Red Cell Distribution Width 15.2 % (11.8-14.3); White Blood Cell 10.4 10^3/uL (4.4-10.8)
[2018-04-16 07:00] LABS: Potassium 4.3 mmol/L (3.5-5.1)
[2018-04-16 07:07] LABS: Albumin 3.8 g/dL (3.4-5.0); BUN/Creatinine Ratio 13.6; Bilirubin, Total 0.4 mg/dL (0.2-1.0); Calcium 8.9 mg/dL (8.5-10.1); Total Protein 6.9 g/dL (6.4-8.2)
[2018-04-16 08:30] VITALS: BP 110/62
[2018-04-16 09:26] VITALS: BP 110/62
[2018-04-16] MEDS: [UNRECOGNIZED DRUG - OTHER] IN SCH ×2 (10:00→22:25)
[2018-04-16] MEDS ORDERED: PANTOPRAZOLE 40 MG TAB PO SCH (10:00)
[2018-04-16] MEDS: [UNRECOGNIZED DRUG - OTHER] IN SCH (10:00)
[2018-04-16] MEDS: VILANTEROL IN SCH ×2 (10:00→22:25)
[2018-04-16] MEDS: ALBUTEROL SULF 2.5 MG/0.5ML(0.5%) NEB SOLN NEB PRN (10:34)
[2018-04-16] MEDS: cefTRIAXone 1GM/50ML D5W 50 ML IV SCH (10:44)
[2018-04-16] MEDS: PANTOPRAZOLE 40 MG TAB PO SCH (10:45)
[2018-04-16] MEDS: MULTIPLE VITAMIN TAB PO SCH (10:45)
[2018-04-16] MEDS: ENOXAPARIN SOD 40 MG/0.4 ML SYRINGE SC SCH (10:45)
[2018-04-16] MEDS: traMADol HCL 50 MG TAB PO PRN ×2 (12:30→18:30)
[2018-04-16 12:37] VITALS: BP 104/62
[2018-04-16 17:00] VITALS: BP 119/78
[2018-04-16] MEDS: SODIUM CHLORIDE 0.9% 1,000 ML IV SCH (21:17)
[2018-04-16] MEDS: TEMAZEPAM 15 MG CAP PO PRN (21:57)
[2018-04-16] MEDS: MONTELUKAST SODIUM 10 MG TAB PO SCH (21:57)
[2018-04-16 21:59] VITALS: BP 128/66
[2018-04-17] MEDS: ONDANSETRON HCL 4 MG/2 ML VIAL IV PRN ×6 (00:29→20:40)
[2018-04-17] MEDS: MORPHINE SULFATE 4 MG/ML SYR/VIAL IV PRN ×6 (00:29→20:40)
[2018-04-17] MEDS: methylPREDNISolone SOD SUCC 40 MG/ML VL IV SCH ×4 (00:29→18:55)
[2018-04-17] MEDS: ALBUTEROL SULF 2.5 MG/0.5ML(0.5%) NEB SOLN NEB SCH ×6 (01:33→21:49)
[2018-04-17] MEDS: diphenhdrAMINE HCL 25 MG CAP PO PRN ×4 (02:29→22:36)
[2018-04-17] MEDS: LORazepam 2MG/ML-1ML VIAL IV PRN ×4 (02:30→22:37)
[2018-04-17] MEDS: traMADol HCL 50 MG TAB PO PRN ×3 (02:31→18:39)
[2018-04-17 05:00] VITALS: BP 121/64
[2018-04-17] MEDS ORDERED: SODIUM CHLORIDE 0.9 % NEB SOLN 3ML NEB ONE ×3 (05:32→14:27)
[2018-04-17 05:44] LABS: Basophils # (auto) 0 uL; Eosinophils # (auto) 0 uL; Hematocrit 38.9 % (36.0-46.0); Hemoglobin 13.2 g/dL (12.2-16.2); Lymphocytes # (auto) 0.6 uL; Mean Corpuscular Hemoglobin 30.3 pg (28.0-32.0); Mean Corpuscular Hgb Conc. 33.8 g/dL (32.0-36.0); Mean Corpuscular Volume 89.8 fL (80.0-100.0); Monocytes # (auto) 0.6 uL; Monocytes % (auto) 3.7 % (0.0-12.0); Neutrophils # (auto) 13.7 uL; Neutrophils % (auto) 92.3 % (37.0-80.0); Platelet Count (auto) 249 10^3/uL (140-450); Red Blood Cells 4.34 10^6/uL (4.0-5.20); Red Cell Distribution Width 15.5 % (11.8-14.3); White Blood Cell 14.9 10^3/uL (4.4-10.8)
[2018-04-17 05:59] LABS: Calcium 8.6 mg/dL (8.5-10.1); Potassium 4.3 mmol/L (3.5-5.1)
[2018-04-17 06:01] LABS: BUN/Creatinine Ratio 22.7
[2018-04-17] MEDS: HYDROcodone-ACET 5/325MG TAB PO PRN ×3 (06:33→22:36)
[2018-04-17 09:00] VITALS: BP 123/52
[2018-04-17] MEDS: cefTRIAXone 1GM/50ML D5W 50 ML IV SCH (09:26)
[2018-04-17] MEDS: [UNRECOGNIZED DRUG - OTHER] IN SCH (10:00)
[2018-04-17] MEDS: VILANTEROL IN SCH ×2 (10:00→21:04)
[2018-04-17] MEDS: [UNRECOGNIZED DRUG - OTHER] IN SCH (10:00)
[2018-04-17] MEDS: MULTIPLE VITAMIN TAB PO SCH (10:03)
[2018-04-17] MEDS: PANTOPRAZOLE 40 MG TAB PO SCH (10:03)
[2018-04-17] MEDS: ENOXAPARIN SOD 40 MG/0.4 ML SYRINGE SC SCH (10:04)
[2018-04-17] MEDS: SODIUM CHLORIDE 0.9% 1,000 ML IV SCH (12:34)
[2018-04-17 13:00] VITALS: BP 114/64
[2018-04-17 17:00] VITALS: BP 125/70
[2018-04-17] MEDS: THROAT LOZENGES(CEPASTAT) MT PRN ×2 (17:57→22:36)
[2018-04-17] MEDS: FLUTICASONE IN SCH (21:04)
[2018-04-17 22:00] VITALS: BP 127/72
[2018-04-17] MEDS: TEMAZEPAM 15 MG CAP PO PRN (22:35)
[2018-04-17] MEDS: MONTELUKAST SODIUM 10 MG TAB PO SCH (22:35)
[2018-04-18] VITALS (7 sets, daily range): BP systolic 116–125; BP diastolic 58–82
[2018-04-18] MEDS: MORPHINE SULFATE 4 MG/ML SYR/VIAL IV PRN ×6 (00:40→23:08)
[2018-04-18] MEDS: methylPREDNISolone SOD SUCC 40 MG/ML VL IV SCH ×5 (00:40→23:07)
[2018-04-18] MEDS: ONDANSETRON HCL 4 MG/2 ML VIAL IV PRN ×3 (00:40→09:13)
[2018-04-18] MEDS: ALBUTEROL SULF 2.5 MG/0.5ML(0.5%) NEB SOLN NEB SCH ×5 (02:04→18:35)
[2018-04-18] MEDS: HYDROcodone-ACET 5/325MG TAB PO PRN ×4 (03:00→19:53)
[2018-04-18] MEDS: LORazepam 2MG/ML-1ML VIAL IV PRN ×4 (04:43→23:07)
[2018-04-18] MEDS: diphenhdrAMINE HCL 25 MG CAP PO PRN ×4 (04:43→23:07)
[2018-04-18] MEDS: traMADol HCL 50 MG TAB PO PRN ×3 (06:12→18:28)
[2018-04-18 06:13] LABS: Basophils # (auto) 0 uL; Basophils % (auto) 0.1 % (0.0-2.0); Eosinophils # (auto) 0 uL; Hematocrit 41.8 % (36.0-46.0); Hemoglobin 13.7 g/dL (12.2-16.2); Lymphocytes # (auto) 0.8 uL; Lymphocytes % (auto) 5.8 % (10.0-50.0); Mean Corpuscular Hemoglobin 29.7 pg (28.0-32.0); Mean Corpuscular Hgb Conc. 32.7 g/dL (32.0-36.0); Mean Corpuscular Volume 90.9 fL (80.0-100.0); Monocytes # (auto) 0.8 uL; Monocytes % (auto) 5.4 % (0.0-12.0); Neutrophils # (auto) 12.3 uL; Neutrophils % (auto) 88.7 % (37.0-80.0); Platelet Count (auto) 270 10^3/uL (140-450); Red Cell Distribution Width 15.2 % (11.8-14.3); White Blood Cell 13.9 10^3/uL (4.4-10.8)
[2018-04-18] MEDS: SODIUM CHLORIDE 0.9% 1,000 ML IV SCH ×2 (06:17→23:07)
[2018-04-18 06:34] LABS: Anion Gap 7 (5-15); Blood Urea Nitrogen 16 mg/dL (7-18); Calcium 8.7 mg/dL (8.5-10.1); Carbon Dioxide 25 mmol/L (21-32); Chloride 107 mmol/L (98-107); Glucose 122 mg/dL (74-106); Potassium 4.4 mmol/L (3.5-5.1); Sodium 139 mmol/L (136-145)
[2018-04-18 06:36] LABS: BUN/Creatinine Ratio 22.9; GFR African American 135 mL/min; GFR Non-African American 111 mL/min
[2018-04-18] MEDS: cefTRIAXone 1GM/50ML D5W 50 ML IV SCH (09:12)
[2018-04-18] MEDS: MULTIPLE VITAMIN TAB PO SCH (09:36)
[2018-04-18] MEDS: PANTOPRAZOLE 40 MG TAB PO SCH (09:36)
[2018-04-18] MEDS: [UNRECOGNIZED DRUG - OTHER] IN SCH (09:36)
[2018-04-18] MEDS: FLUTICASONE IN SCH (09:36)
[2018-04-18] MEDS: VILANTEROL IN SCH (09:36)
[2018-04-18] MEDS: ENOXAPARIN SOD 40 MG/0.4 ML SYRINGE SC SCH ×2 (09:37→12:12)
[2018-04-18] MEDS: PROMETHAZINE HCL 25 MG/ML 1ML IV PRN ×3 (13:13→23:07)
[2018-04-18] MEDS: ALBUTEROL SULF 2.5 MG/0.5ML(0.5%) NEB SOLN NEB PRN (22:20)
[2018-04-18] MEDS: MONTELUKAST SODIUM 10 MG TAB PO SCH (23:07)
[2018-04-19] MEDS: traMADol HCL 50 MG TAB PO PRN ×3 (00:36→14:03)
[2018-04-19] MEDS: TEMAZEPAM 15 MG CAP PO PRN (00:36)
[2018-04-19] MEDS: ALBUTEROL SULF 2.5 MG/0.5ML(0.5%) NEB SOLN NEB PRN ×3 (02:19→09:53)
[2018-04-19 05:07] VITALS: BP 115/70
[2018-04-19] MEDS: PROMETHAZINE HCL 25 MG/ML 1ML IV PRN ×5 (05:14→21:44)
[2018-04-19] MEDS: methylPREDNISolone SOD SUCC 40 MG/ML VL IV SCH ×2 (05:14→11:10)
[2018-04-19] MEDS: diphenhdrAMINE HCL 25 MG CAP PO PRN ×3 (05:14→17:41)
[2018-04-19] MEDS: LORazepam 2MG/ML-1ML VIAL IV PRN ×3 (05:14→17:38)
[2018-04-19] MEDS: MORPHINE SULFATE 4 MG/ML SYR/VIAL IV PRN ×5 (05:15→21:44)
[2018-04-19 08:48] VITALS: BP 125/81
[2018-04-19] MEDS: cefTRIAXone 1GM/50ML D5W 50 ML IV SCH (09:03)
[2018-04-19] MEDS: VILANTEROL IN SCH (09:24)
[2018-04-19] MEDS: MULTIPLE VITAMIN TAB PO SCH (09:24)
[2018-04-19] MEDS: PANTOPRAZOLE 40 MG TAB PO SCH (09:24)
[2018-04-19] MEDS: FLUTICASONE IN SCH (09:24)
[2018-04-19] MEDS: ENOXAPARIN SOD 40 MG/0.4 ML SYRINGE SC SCH (09:25)
[2018-04-19] MEDS: [UNRECOGNIZED DRUG - OTHER] IN SCH (10:00)
[2018-04-19] MEDS: HYDROcodone-ACET 5/325MG TAB PO PRN ×2 (11:00→15:07)
[2018-04-19 12:28] VITALS: BP 125/72
[2018-04-19] MEDS: ALBUTEROL SULF 2.5 MG/0.5ML(0.5%) NEB SOLN NEB SCH ×3 (13:36→22:28)
[2018-04-19] MEDS: methylPREDNISolone SOD SUCC 125 MG/2 ML VL IV SCH (17:40)
[2018-04-19] MEDS ORDERED: HYDROcodone-ACET 5/325MG TAB PO PRN (18:15)
[2018-04-19] MEDS: KETOROLAC TROMETH 30 MG/ML 1ML VIAL IV PRN (19:54)
[2018-04-19 20:30] VITALS: BP 121/73
[2018-04-19] MEDS: MONTELUKAST SODIUM 10 MG TAB PO SCH (21:44)
[2018-04-19 22:00] VITALS: BP 121/73
[2018-04-19 22:10] LABS: Basophils # (auto) 0 uL; Basophils % (auto) 0.1 % (0.0-2.0); Eosinophils # (auto) 0 uL; Hematocrit 40.5 % (36.0-46.0); Hemoglobin 13.4 g/dL (12.2-16.2); Lymphocytes # (auto) 0.5 uL; Lymphocytes % (auto) 4.8 % (10.0-50.0); Mean Corpuscular Hgb Conc. 33.1 g/dL (32.0-36.0); Mean Corpuscular Volume 90.7 fL (80.0-100.0); Monocytes # (auto) 0.6 uL; Monocytes % (auto) 5.9 % (0.0-12.0); Neutrophils # (auto) 9.8 uL; Neutrophils % (auto) 89.2 % (37.0-80.0); Platelet Count (auto) 155 10^3/uL (140-450); Red Blood Cells 4.46 10^6/uL (4.0-5.20); Red Cell Distribution Width 14.9 % (11.8-14.3)
[2018-04-20] MEDS: methylPREDNISolone SOD SUCC 125 MG/2 ML VL IV SCH ×4 (00:03→18:30)
[2018-04-20] MEDS: diphenhdrAMINE HCL 25 MG CAP PO PRN ×4 (00:04→18:32)
[2018-04-20] MEDS: LORazepam 2MG/ML-1ML VIAL IV PRN ×4 (00:04→18:31)
[2018-04-20] MEDS: TEMAZEPAM 15 MG CAP PO PRN ×2 (01:27→22:39)
[2018-04-20] MEDS: MORPHINE SULFATE 4 MG/ML SYR/VIAL IV PRN ×6 (02:05→22:31)
[2018-04-20] MEDS: PROMETHAZINE HCL 25 MG/ML 1ML IV PRN ×6 (02:05→22:31)
[2018-04-20] MEDS: ALBUTEROL SULF 2.5 MG/0.5ML(0.5%) NEB SOLN NEB SCH ×6 (02:30→22:27)
[2018-04-20 05:00] VITALS: BP 131/85
[2018-04-20] MEDS: cefTRIAXone 1GM/50ML D5W 50 ML IV SCH (07:59)
[2018-04-20 08:00] VITALS: BP 118/71
[2018-04-20] MEDS: KETOROLAC TROMETH 30 MG/ML 1ML VIAL IV PRN ×2 (08:00→16:19)
[2018-04-20] MEDS: SODIUM CHLORIDE 0.9% 1,000 ML IV SCH ×2 (08:06→10:15)
[2018-04-20 09:00] VITALS: BP 118/71
[2018-04-20] MEDS: [UNRECOGNIZED DRUG - OTHER] IN SCH (10:00)
[2018-04-20] MEDS: FLUTICASONE IN SCH (10:15)
[2018-04-20] MEDS: VILANTEROL IN SCH (10:15)
[2018-04-20] MEDS: MULTIPLE VITAMIN TAB PO SCH (10:15)
[2018-04-20] MEDS: ENOXAPARIN SOD 40 MG/0.4 ML SYRINGE SC SCH (10:16)
[2018-04-20] MEDS: PANTOPRAZOLE 40 MG TAB PO SCH (10:16)
[2018-04-20 13:00] VITALS: BP 127/79
[2018-04-20 17:00] VITALS: BP 129/82
[2018-04-20 22:00] VITALS: BP 129/80
[2018-04-20] MEDS: MONTELUKAST SODIUM 10 MG TAB PO SCH (22:30)
[2018-04-21] VITALS (7 sets, daily range): BP systolic 132–144; BP diastolic 70–100
[2018-04-21] MEDS: methylPREDNISolone SOD SUCC 125 MG/2 ML VL IV SCH ×4 (00:32→18:21)
[2018-04-21] MEDS: LORazepam 2MG/ML-1ML VIAL IV PRN ×4 (00:32→18:35)
[2018-04-21] MEDS: diphenhdrAMINE HCL 25 MG CAP PO PRN ×4 (00:32→18:35)
[2018-04-21] MEDS: KETOROLAC TROMETH 30 MG/ML 1ML VIAL IV PRN ×3 (00:33→16:36)
[2018-04-21] MEDS: SODIUM CHLORIDE 0.9% 1,000 ML IV SCH ×2 (00:39→18:21)
[2018-04-21] MEDS: ALBUTEROL SULF 2.5 MG/0.5ML(0.5%) NEB SOLN NEB SCH ×6 (02:36→22:38)
[2018-04-21] MEDS: PROMETHAZINE HCL 25 MG/ML 1ML IV PRN ×6 (02:36→22:35)
[2018-04-21] MEDS: MORPHINE SULFATE 4 MG/ML SYR/VIAL IV PRN ×2 (02:37→06:35)
[2018-04-21] MEDS: cefTRIAXone 1GM/50ML D5W 50 ML IV SCH (08:31)
[2018-04-21 09:32] LABS: Albumin 3.1 g/dL (3.4-5.0); Calcium 8.2 mg/dL (8.5-10.1); Potassium 4.1 mmol/L (3.5-5.1)
[2018-04-21 09:35] LABS: BUN/Creatinine Ratio 21.7; Bilirubin, Total 0.2 mg/dL (0.2-1.0); Total Protein 5.8 g/dL (6.4-8.2)
[2018-04-21] MEDS: [UNRECOGNIZED DRUG - OTHER] IN SCH (10:00)
[2018-04-21] MEDS: PANTOPRAZOLE 40 MG TAB PO SCH (11:06)
[2018-04-21] MEDS: MULTIPLE VITAMIN TAB PO SCH (11:06)
[2018-04-21] MEDS: ENOXAPARIN SOD 40 MG/0.4 ML SYRINGE SC SCH (11:06)
[2018-04-21] MEDS: MORPHINE SULF INJ 2 MG/ML SYRINGE 1ML IV PRN ×2 (11:07→15:00)
[2018-04-21] MEDS: FLUTICASONE IN SCH (12:17)
[2018-04-21] MEDS: VILANTEROL IN SCH (12:17)
[2018-04-21] MEDS: MORPHINE SULFATE 10 MG/ML INJ 1ML SDV IV PRN ×2 (18:35→22:35)
[2018-04-21] MEDS: MAGNESIUM OXIDE 400 MG TAB PO SCH (22:33)
[2018-04-21] MEDS: TEMAZEPAM 15 MG CAP PO PRN (22:34)
[2018-04-21] MEDS: MONTELUKAST SODIUM 10 MG TAB PO SCH (22:34)
[2018-04-21] MEDS: METOCLOPRAMIDE HCL 10 MG TAB PO SCH (22:34)
[2018-04-22] MEDS: methylPREDNISolone SOD SUCC 125 MG/2 ML VL IV SCH ×4 (00:45→18:46)
[2018-04-22] MEDS: diphenhdrAMINE HCL 25 MG CAP PO PRN ×4 (00:45→18:47)
[2018-04-22] MEDS: LORazepam 2MG/ML-1ML VIAL IV PRN ×4 (00:46→18:47)
[2018-04-22] MEDS: KETOROLAC TROMETH 30 MG/ML 1ML VIAL IV PRN ×3 (00:46→17:58)
[2018-04-22] MEDS: PROMETHAZINE HCL 25 MG/ML 1ML IV PRN ×6 (02:32→22:41)
[2018-04-22] MEDS: MORPHINE SULFATE 10 MG/ML INJ 1ML SDV IV PRN ×6 (02:33→22:41)
[2018-04-22] MEDS: ALBUTEROL SULF 2.5 MG/0.5ML(0.5%) NEB SOLN NEB SCH ×6 (02:43→22:55)
[2018-04-22 05:00] VITALS: BP 116/70
[2018-04-22] MEDS: SODIUM CHLORIDE 0.9% 1,000 ML IV SCH (05:53)
[2018-04-22] MEDS: METOCLOPRAMIDE HCL 10 MG TAB PO SCH ×3 (06:31→22:41)
[2018-04-22 08:00] VITALS: BP 139/83
[2018-04-22 08:11] LABS: Hematocrit 39.2 % (36.0-46.0); Hemoglobin 13.2 g/dL (12.2-16.2); Mean Corpuscular Hemoglobin 30.2 pg (28.0-32.0); Mean Corpuscular Hgb Conc. 33.7 g/dL (32.0-36.0); Mean Corpuscular Volume 89.5 fL (80.0-100.0); Platelet Count (auto) 214 10^3/uL (140-450); Red Blood Cells 4.38 10^6/uL (4.0-5.20); White Blood Cell 15.2 10^3/uL (4.4-10.8)
[2018-04-22 08:29] LABS: Band Neutrophils % (manual) 0; Basophils % (manual) 0 (0.0-2.0); Blast Cells 0; Eosinophils % (manual) 0 (0-7); Metamyelocytes % 0; Myelocytes % 0; Promyelocytes % 0; Reactive Lymphocytes 0
[2018-04-22 09:12] VITALS: BP 139/83
[2018-04-22 09:38] LABS: Lymphocytes % (manual) 2 (10.0-50.0); Monocytes % (manual) 4 (0-12)
[2018-04-22] MEDS: [UNRECOGNIZED DRUG - OTHER] IN SCH (10:00)
[2018-04-22] MEDS ORDERED: DEXAMETHASONE INJECTION 10 MG in D5W 5% 50 ML IV SCH (10:00)
[2018-04-22] MEDS: MULTIPLE VITAMIN TAB PO SCH (10:06)
[2018-04-22] MEDS: MAGNESIUM OXIDE 400 MG TAB PO SCH ×2 (10:06→22:41)
[2018-04-22] MEDS: FLUTICASONE IN SCH (10:06)
[2018-04-22] MEDS: VILANTEROL IN SCH (10:06)
[2018-04-22] MEDS: cefTRIAXone 1GM/50ML D5W 50 ML IV SCH (10:06)
[2018-04-22] MEDS: ENOXAPARIN SOD 40 MG/0.4 ML SYRINGE SC SCH (10:07)
[2018-04-22] MEDS: PANTOPRAZOLE 40 MG TAB PO SCH (10:07)
[2018-04-22 11:46] VITALS: BP 126/80
[2018-04-22 16:43] VITALS: BP 138/89
[2018-04-22 22:00] VITALS: BP 122/66
[2018-04-22] MEDS: MONTELUKAST SODIUM 10 MG TAB PO SCH (22:41)
[2018-04-22] MEDS: TEMAZEPAM 15 MG CAP PO PRN (23:14)
[2018-04-23] VITALS (7 sets, daily range): BP systolic 129–148; BP diastolic 61–100
[2018-04-23] MEDS: LORazepam 2MG/ML-1ML VIAL IV PRN ×4 (00:47→18:54)
[2018-04-23] MEDS: methylPREDNISolone SOD SUCC 125 MG/2 ML VL IV SCH ×4 (00:47→18:00)
[2018-04-23] MEDS: diphenhdrAMINE HCL 25 MG CAP PO PRN ×4 (00:47→18:55)
[2018-04-23] MEDS: KETOROLAC TROMETH 30 MG/ML 1ML VIAL IV PRN ×3 (01:58→18:01)
[2018-04-23] MEDS: ALBUTEROL SULF 2.5 MG/0.5ML(0.5%) NEB SOLN NEB SCH ×6 (02:39→22:29)
[2018-04-23] MEDS: PROMETHAZINE HCL 25 MG/ML 1ML IV PRN ×6 (02:40→23:16)
[2018-04-23] MEDS: MORPHINE SULFATE 10 MG/ML INJ 1ML SDV IV PRN ×6 (02:40→23:16)
[2018-04-23] MEDS: METOCLOPRAMIDE HCL 10 MG TAB PO SCH ×3 (06:37→21:57)
[2018-04-23] MEDS: ALBUTEROL SULF 2.5 MG/0.5ML(0.5%) NEB SOLN NEB PRN (08:24)
[2018-04-23] MEDS: [UNRECOGNIZED DRUG - OTHER] IN SCH (10:00)
[2018-04-23] MEDS: VILANTEROL IN SCH (10:00)
[2018-04-23] MEDS: FLUTICASONE IN SCH (10:00)
[2018-04-23] MEDS: cefTRIAXone 1GM/50ML D5W 50 ML IV SCH (10:15)
[2018-04-23] MEDS: ENOXAPARIN SOD 40 MG/0.4 ML SYRINGE SC SCH (10:16)
[2018-04-23] MEDS: MAGNESIUM OXIDE 400 MG TAB PO SCH ×2 (10:16→21:57)
[2018-04-23] MEDS: MULTIPLE VITAMIN TAB PO SCH (10:16)
[2018-04-23] MEDS: PANTOPRAZOLE 40 MG TAB PO SCH (10:16)
[2018-04-23] MEDS: MONTELUKAST SODIUM 10 MG TAB PO SCH (21:57)
[2018-04-23] MEDS: TEMAZEPAM 15 MG CAP PO PRN (21:58)
[2018-04-24] VITALS (7 sets, daily range): BP systolic 115–144; BP diastolic 68–83
[2018-04-24] MEDS: methylPREDNISolone SOD SUCC 125 MG/2 ML VL IV SCH ×5 (00:03→23:06)
[2018-04-24] MEDS: diphenhdrAMINE HCL 25 MG CAP PO PRN ×4 (01:01→23:24)
[2018-04-24] MEDS: LORazepam 2MG/ML-1ML VIAL IV PRN ×4 (01:02→20:03)
[2018-04-24] MEDS: KETOROLAC TROMETH 30 MG/ML 1ML VIAL IV PRN ×2 (02:17→13:34)
[2018-04-24] MEDS: ALBUTEROL SULF 2.5 MG/0.5ML(0.5%) NEB SOLN NEB SCH ×6 (02:17→22:35)
[2018-04-24] MEDS: MORPHINE SULFATE 10 MG/ML INJ 1ML SDV IV PRN ×5 (03:03→20:02)
[2018-04-24] MEDS: PROMETHAZINE HCL 25 MG/ML 1ML IV PRN ×5 (03:03→20:02)
[2018-04-24] MEDS: METOCLOPRAMIDE HCL 10 MG TAB PO SCH ×4 (05:51→23:24)
[2018-04-24] MEDS: NITROGLYCERIN 0.4 MG SL TAB SL PRN (05:52)
[2018-04-24] MEDS: PANTOPRAZOLE 40 MG TAB PO SCH (09:30)
[2018-04-24] MEDS: VILANTEROL IN SCH (09:30)
[2018-04-24] MEDS: FLUTICASONE IN SCH (09:30)
[2018-04-24] MEDS: MAGNESIUM OXIDE 400 MG TAB PO SCH ×3 (09:31→23:24)
[2018-04-24] MEDS: ENOXAPARIN SOD 40 MG/0.4 ML SYRINGE SC SCH (09:31)
[2018-04-24] MEDS: [UNRECOGNIZED DRUG - OTHER] IN SCH (09:31)
[2018-04-24] MEDS: MULTIPLE VITAMIN TAB PO SCH (09:31)
[2018-04-24] MEDS ORDERED: diphenhdrAMINE HCL 50 MG/1 ML VL IV ONE (17:00)
[2018-04-24] MEDS: predniSONE 20 MG TAB PO SCH ×3 (17:55→23:25)
[2018-04-24] MEDS: MONTELUKAST SODIUM 10 MG TAB PO SCH ×2 (22:00→23:24)
[2018-04-24] MEDS: traMADol HCL 50 MG TAB PO PRN (23:23)
[2018-04-25] MEDS: PROMETHAZINE HCL 25 MG/ML 1ML IV PRN ×6 (00:10→22:09)
[2018-04-25] MEDS: MORPHINE SULFATE 10 MG/ML INJ 1ML SDV IV PRN ×6 (00:10→22:08)
[2018-04-25] MEDS: TEMAZEPAM 15 MG CAP PO PRN (00:20)
[2018-04-25] MEDS: LORazepam 2MG/ML-1ML VIAL IV PRN ×4 (02:05→20:00)
[2018-04-25] MEDS: ALBUTEROL SULF 2.5 MG/0.5ML(0.5%) NEB SOLN NEB SCH ×5 (02:25→22:04)
[2018-04-25] MEDS: methylPREDNISolone SOD SUCC 125 MG/2 ML VL IV SCH (04:23)
[2018-04-25] MEDS: predniSONE 20 MG TAB PO SCH ×4 (04:26→22:11)
[2018-04-25] MEDS: METOCLOPRAMIDE HCL 10 MG TAB PO SCH ×3 (04:26→22:10)
[2018-04-25 04:36] VITALS: BP 130/77
[2018-04-25] MEDS ORDERED: SODIUM CHLORIDE 0.9 % NEB SOLN 3ML NEB ONE ×3 (05:24→13:44)
[2018-04-25] MEDS: diphenhdrAMINE HCL 25 MG CAP PO PRN (05:50)
[2018-04-25] MEDS: traMADol HCL 50 MG TAB PO PRN ×3 (05:51→18:20)
[2018-04-25 09:23] VITALS: BP 152/95
[2018-04-25] MEDS: VILANTEROL IN SCH (10:00)
[2018-04-25] MEDS: [UNRECOGNIZED DRUG - OTHER] IN SCH (10:00)
[2018-04-25] MEDS: FLUTICASONE IN SCH (10:00)
[2018-04-25] MEDS: MULTIPLE VITAMIN TAB PO SCH (10:29)
[2018-04-25] MEDS: PANTOPRAZOLE 40 MG TAB PO SCH (10:29)
[2018-04-25] MEDS: ENOXAPARIN SOD 40 MG/0.4 ML SYRINGE SC SCH (10:30)
[2018-04-25 12:05] VITALS: BP 115/65
[2018-04-25] MEDS: diphenhdrAMINE HCL 50 MG/1 ML VL IV SCH ×2 (12:05→18:20)
[2018-04-25 14:24] LABS: BUN/Creatinine Ratio 25.5; Calcium 7.8 mg/dL (8.5-10.1); Potassium 4.6 mmol/L (3.5-5.1)
[2018-04-25 16:45] VITALS: BP 130/76
[2018-04-25 21:08] VITALS: BP 132/68
[2018-04-25 21:39] LABS: Urine Bacteria NONE SEEN /hpf (None Seen); Urine Blood 3+ /uL (Negative); Urine Mucus FEW (None Seen); Urine Specific Gravity 1.026 (1.001-1.035); Urine WBC 39 /hpf (0 - 5)
[2018-04-25] MEDS: MAGNESIUM OXIDE 400 MG TAB PO SCH (22:10)
[2018-04-26] MEDS: diphenhdrAMINE HCL 50 MG/1 ML VL IV SCH ×5 (00:02→23:30)
[2018-04-26] MEDS: TEMAZEPAM 15 MG CAP PO PRN ×2 (00:04→23:38)
[2018-04-26] MEDS: MORPHINE SULFATE 10 MG/ML INJ 1ML SDV IV PRN ×5 (01:37→22:14)
[2018-04-26] MEDS: PROMETHAZINE HCL 25 MG/ML 1ML IV PRN ×5 (01:39→22:14)
[2018-04-26] MEDS: LORazepam 2MG/ML-1ML VIAL IV PRN ×5 (01:45→20:28)
[2018-04-26] MEDS: ALBUTEROL SULF 2.5 MG/0.5ML(0.5%) NEB SOLN NEB SCH ×6 (02:34→21:47)
[2018-04-26] MEDS: ALBUTEROL SULF 2.5 MG/0.5ML(0.5%) NEB SOLN NEB PRN (04:28)
[2018-04-26 04:36] VITALS: BP 135/94
[2018-04-26 05:20] VITALS: BP 135/94
[2018-04-26] MEDS: METOCLOPRAMIDE HCL 10 MG TAB PO SCH ×3 (05:45→22:11)
[2018-04-26] MEDS: predniSONE 20 MG TAB PO SCH ×2 (05:45→11:52)
[2018-04-26 09:17] VITALS: BP 120/70
[2018-04-26] MEDS: ENOXAPARIN SOD 40 MG/0.4 ML SYRINGE SC SCH (09:19)
[2018-04-26] MEDS: MULTIPLE VITAMIN TAB PO SCH (09:20)
[2018-04-26] MEDS: PANTOPRAZOLE 40 MG TAB PO SCH (09:20)
[2018-04-26] MEDS: MAGNESIUM OXIDE 400 MG TAB PO SCH ×2 (09:20→22:11)
[2018-04-26] MEDS: FUROSEMIDE 20 MG TAB PO SCH (09:21)
[2018-04-26] MEDS: FLUTICASONE IN SCH (10:00)
[2018-04-26] MEDS: [UNRECOGNIZED DRUG - OTHER] IN SCH (10:00)
[2018-04-26] MEDS: VILANTEROL IN SCH (10:00)
[2018-04-26] MEDS: traMADol HCL 50 MG TAB PO PRN (11:53)
[2018-04-26 12:49] VITALS: BP 121/71
[2018-04-26 16:40] VITALS: BP 137/80
[2018-04-26] MEDS: predniSONE 5 MG TAB PO SCH ×2 (18:24→22:11)
[2018-04-26 22:00] VITALS: BP 131/85
[2018-04-26] MEDS: APIXABAN 5 MG TAB PO SCH (22:11)
[2018-04-26] MEDS: MONTELUKAST SODIUM 10 MG TAB PO SCH (22:12)
[2018-04-27] MEDS: PROMETHAZINE HCL 25 MG/ML 1ML IV PRN ×6 (02:15→23:05)
[2018-04-27] MEDS: MORPHINE SULFATE 10 MG/ML INJ 1ML SDV IV PRN ×7 (02:24→23:05)
[2018-04-27] MEDS: ALBUTEROL SULF 2.5 MG/0.5ML(0.5%) NEB SOLN NEB SCH ×6 (02:25→22:34)
[2018-04-27] MEDS: LORazepam 2MG/ML-1ML VIAL IV PRN ×4 (02:28→21:19)
[2018-04-27 05:00] VITALS: BP 115/67
[2018-04-27] MEDS: diphenhdrAMINE HCL 50 MG/1 ML VL IV SCH ×4 (06:14→23:46)
[2018-04-27] MEDS: METOCLOPRAMIDE HCL 10 MG TAB PO SCH ×3 (06:17→21:49)
[2018-04-27] MEDS: predniSONE 5 MG TAB PO SCH ×4 (06:23→21:45)
[2018-04-27 09:00] VITALS: BP 127/88
[2018-04-27] MEDS: [UNRECOGNIZED DRUG - OTHER] IN SCH (10:00)
[2018-04-27] MEDS: FLUTICASONE IN SCH (10:00)
[2018-04-27] MEDS: VILANTEROL IN SCH (10:00)
[2018-04-27] MEDS: APIXABAN 5 MG TAB PO SCH ×2 (10:01→21:49)
[2018-04-27] MEDS: FUROSEMIDE 20 MG TAB PO SCH (10:02)
[2018-04-27] MEDS: MULTIPLE VITAMIN TAB PO SCH (10:02)
[2018-04-27] MEDS: MAGNESIUM OXIDE 400 MG TAB PO SCH ×2 (10:03→21:45)
[2018-04-27] MEDS: PANTOPRAZOLE 40 MG TAB PO SCH (10:03)
[2018-04-27] MEDS: NYSTATIN (MOUTH-THROAT) 500,000 UNITS/5 ML SUSP MT SCH ×3 (12:57→21:50)
[2018-04-27 13:00] VITALS: BP 116/73
[2018-04-27 17:00] VITALS: BP 120/77
[2018-04-27] MEDS: NITROGLYCERIN 0.4 MG SL TAB SL PRN (21:18)
[2018-04-27] MEDS: MONTELUKAST SODIUM 10 MG TAB PO SCH (21:50)
[2018-04-27 22:00] VITALS: BP 105/69
[2018-04-27] MEDS: TEMAZEPAM 15 MG CAP PO PRN (23:40)
[2018-04-28 01:30] VITALS: BP 105/69
[2018-04-28] MEDS: ALBUTEROL SULF 2.5 MG/0.5ML(0.5%) NEB SOLN NEB SCH ×6 (02:14→23:21)
[2018-04-28] MEDS: PROMETHAZINE HCL 25 MG/ML 1ML IV PRN ×6 (03:12→23:32)
[2018-04-28] MEDS: MORPHINE SULFATE 10 MG/ML INJ 1ML SDV IV PRN ×6 (03:14→23:31)
[2018-04-28] MEDS: LORazepam 2MG/ML-1ML VIAL IV PRN ×4 (03:31→22:14)
[2018-04-28 05:00] VITALS: BP 113/69
[2018-04-28] MEDS: diphenhdrAMINE HCL 50 MG/1 ML VL IV SCH ×3 (05:33→18:24)
[2018-04-28] MEDS: METOCLOPRAMIDE HCL 10 MG TAB PO SCH ×3 (05:34→21:42)
[2018-04-28] MEDS: NYSTATIN (MOUTH-THROAT) 500,000 UNITS/5 ML SUSP MT SCH ×4 (05:35→21:41)
[2018-04-28] MEDS: predniSONE 5 MG TAB PO SCH ×3 (05:35→21:42)
[2018-04-28 07:37] LABS: Hematocrit 39.6 % (36.0-46.0); Hemoglobin 13.1 g/dL (12.2-16.2); Mean Corpuscular Hemoglobin 30.1 pg (28.0-32.0); Mean Corpuscular Volume 91.3 fL (80.0-100.0); Platelet Count (auto) 191 10^3/uL (140-450); Red Blood Cells 4.34 10^6/uL (4.0-5.20)
[2018-04-28 07:44] LABS: Basophils % (manual) 0 (0.0-2.0); Blast Cells 0; Eosinophils % (manual) 0 (0-7); Promyelocytes % 0; Reactive Lymphocytes 0
[2018-04-28 07:50] LABS: Albumin 3.3 g/dL (3.4-5.0); Calcium 8.4 mg/dL (8.5-10.1); Magnesium 2.8 mg/dL (1.6-2.6); Potassium 4.6 mmol/L (3.5-5.1)
[2018-04-28 07:53] LABS: BUN/Creatinine Ratio 36.2; Bilirubin, Total 0.2 mg/dL (0.2-1.0); Total Protein 5.8 g/dL (6.4-8.2)
[2018-04-28 09:08] VITALS: BP 120/67
[2018-04-28] MEDS: APIXABAN 5 MG TAB PO SCH ×2 (09:35→21:42)
[2018-04-28] MEDS: MAGNESIUM OXIDE 400 MG TAB PO SCH ×2 (09:35→21:42)
[2018-04-28] MEDS: PANTOPRAZOLE 40 MG TAB PO SCH (09:36)
[2018-04-28] MEDS: MULTIPLE VITAMIN TAB PO SCH (09:36)
[2018-04-28 09:40] LABS: Band Neutrophils % (manual) 4; Lymphocytes % (manual) 10 (10.0-50.0); Metamyelocytes % 2; Monocytes % (manual) 8 (0-12); Myelocytes % 2
[2018-04-28] MEDS: [UNRECOGNIZED DRUG - OTHER] IN SCH (10:00)
[2018-04-28] MEDS: VILANTEROL IN SCH (10:00)
[2018-04-28] MEDS: FLUTICASONE IN SCH (10:00)
[2018-04-28] MEDS: FUROSEMIDE 20 MG TAB PO SCH (10:15)
[2018-04-28 13:00] VITALS: BP 119/71
[2018-04-28 17:00] VITALS: BP 120/66
[2018-04-28] MEDS: MONTELUKAST SODIUM 10 MG TAB PO SCH (21:42)
[2018-04-28 22:00] VITALS: BP 121/72
[2018-04-29] MEDS: diphenhdrAMINE HCL 50 MG/1 ML VL IV SCH ×3 (00:04→11:50)
[2018-04-29] MEDS: TEMAZEPAM 15 MG CAP PO PRN (00:04)
[2018-04-29] MEDS: ALBUTEROL SULF 2.5 MG/0.5ML(0.5%) NEB SOLN NEB SCH ×5 (02:51→14:49)
[2018-04-29] MEDS: PROMETHAZINE HCL 25 MG/ML 1ML IV PRN ×2 (03:33→07:38)
[2018-04-29] MEDS: MORPHINE SULFATE 10 MG/ML INJ 1ML SDV IV PRN ×3 (03:33→11:50)
[2018-04-29] MEDS: LORazepam 2MG/ML-1ML VIAL IV PRN ×2 (04:05→10:04)
[2018-04-29 05:08] VITALS: BP 133/75
[2018-04-29] MEDS: METOCLOPRAMIDE HCL 10 MG TAB PO SCH (05:57)
[2018-04-29] MEDS: NYSTATIN (MOUTH-THROAT) 500,000 UNITS/5 ML SUSP MT SCH ×2 (06:05→11:50)
[2018-04-29 08:42] VITALS: BP 115/62
[2018-04-29] MEDS: VILANTEROL IN SCH (09:37)
[2018-04-29] MEDS: [UNRECOGNIZED DRUG - OTHER] IN SCH (09:37)
[2018-04-29] MEDS: FLUTICASONE IN SCH (09:37)
[2018-04-29] MEDS: predniSONE 5 MG TAB PO SCH (09:45)
[2018-04-29] MEDS: MULTIPLE VITAMIN TAB PO SCH (09:46)
[2018-04-29] MEDS: FUROSEMIDE 20 MG TAB PO SCH (09:46)
[2018-04-29] MEDS: PANTOPRAZOLE 40 MG TAB PO SCH (09:46)
[2018-04-29] MEDS: MAGNESIUM OXIDE 400 MG TAB PO SCH (09:46)
[2018-04-29] MEDS: APIXABAN 5 MG TAB PO SCH (09:47)
[2018-04-29 13:00] VITALS: BP 128/82
[2018-04-29 14:56] VITALS: BP 115/62
== END 2018-04-29 16:20 | disposition home or self-care (01) | DRG 133 ==
LOC: ER 10:12 → EDBD 10:12 → OVERFLOW 11:32 → TELE-WESTW 17:41
PROVIDERS: ADMIT Internal Medicine; ATTEND Internal Medicine
DX: J96.20 Acute and chronic respiratory failure, unspecified whether with hypoxia or hypercapnia (principal); J45.902 Unspecified asthma with status asthmaticus; I82.622 Acute embolism and thrombosis of deep veins of left upper extremity; J44.1 Chronic obstructive pulmonary disease with (acute) exacerbation; K21.9 Gastro-esophageal reflux disease without esophagitis; J20.9 Acute bronchitis, unspecified; F41.9 Anxiety disorder, unspecified; F12.90 Cannabis use, unspecified, uncomplicated; F60.9 Personality disorder, unspecified; G47.00 Insomnia, unspecified; H53.2 Diplopia; I08.0 Rheumatic disorders of both mitral and aortic valves; J02.9 Acute pharyngitis, unspecified; R07.89 Other chest pain; T38.0X5A Adverse effect of glucocorticoids and synthetic analogues, initial encounter; Z80.1 Family history of malignant neoplasm of trachea, bronchus and lung; Z86.711 Personal history of pulmonary embolism; Z80.3 Family history of malignant neoplasm of breast; Z80.41 Family history of malignant neoplasm of ovary; Z80.8 Family history of malignant neoplasm of other organs or systems; Z81.8 Family history of other mental and behavioral disorders; Z82.0 Family history of epilepsy and other diseases of the nervous system; Z82.49 Family history of ischemic heart disease and other diseases of the circulatory system; Z82.3 Family history of stroke; Z82.5 Family history of asthma and other chronic lower respiratory diseases; Z82.62 Family history of osteoporosis; Z83.3 Family history of diabetes mellitus; Z86.718 Personal history of other venous thrombosis and embolism; Z91.19 Patient's noncompliance with other medical treatment and regimen; Z79.899 Other long term (current) drug therapy; Z79.01 Long term (current) use of anticoagulants; Z71.89 Other specified counseling; Z83.511 Family history of glaucoma; Z83.42 Family history of familial hypercholesterolemia; Z82.61 Family history of arthritis; Z83.2 Family history of diseases of the blood and blood-forming organs and certain disorders involving the immune mechanism
CPT/HCPCS: 36415; 70450; 71045; 78582; 80048; 80053; 81001; 81025; 83735; 83880; 84484; 85007; 85025; 85027; 86141; 86225; 86235; 87081; 93005; 93306; 93970; 93971; 94010; 94640; 96365; 96366; 96375; 97163; 99291; A6257; G0378; J0696; J1885; J2405

== ENCOUNTER 2018-05-01 06:53 | Emergency (ER) | payer OTHER ==
[~2018-05-01] VITALS: Ht 167.6 cm; Wt 77.1 kg
[2018-05-01] MEDS ORDERED: SODIUM CHLORIDE 0.9% 1,000 ML IV ONE (07:21)
[2018-05-01] MEDS ORDERED: LORazepam 2MG/ML-1ML VIAL IV ONE (07:30)
[2018-05-01] MEDS ORDERED: methylPREDNISolone SOD SUCC 125 MG/2 ML VL IV ONE (07:30)
[2018-05-01] MEDS ORDERED: ALBUTEROL SULF 2.5 MG/0.5ML(0.5%) NEB SOLN NEB ONE (07:30)
[2018-05-01 09:18] LABS: Hematocrit 43.4 % (36.0-46.0); Hemoglobin 14.4 g/dL (12.2-16.2); Mean Corpuscular Hemoglobin 30.3 pg (28.0-32.0); Mean Corpuscular Hgb Conc. 33.3 g/dL (32.0-36.0); Mean Corpuscular Volume 90.9 fL (80.0-100.0); Platelet Count (auto) 162 10^3/uL (140-450); Red Blood Cells 4.77 10^6/uL (4.0-5.20); Red Cell Distribution Width 16.3 % (11.8-14.3); White Blood Cell 12.9 10^3/uL (4.4-10.8)
[2018-05-01 09:23] LABS: Basophils % (manual) 0 (0.0-2.0); Blast Cells 0; Eosinophils % (manual) 0 (0-7); Metamyelocytes % 0; Myelocytes % 0; Promyelocytes % 0; Reactive Lymphocytes 0
[2018-05-01 09:34] LABS: Albumin 3.3 g/dL (3.4-5.0); Potassium 3.3 mmol/L (3.5-5.1)
[2018-05-01 09:38] LABS: BUN/Creatinine Ratio 30.6; Bilirubin, Total 0.7 mg/dL (0.2-1.0); Total Protein 6.5 g/dL (6.4-8.2)
[2018-05-01 09:43] LABS: Beta HCG, Quantitative < 1 mlU/mL (1-3); Thyroid Stimulating Hormone 1.26 uIU/mL (0.358-3.74)
[2018-05-01 09:44] LABS: Urine Bacteria NONE SEEN /hpf (None Seen); Urine Blood Negative /uL (Negative); Urine Specific Gravity 1.019 (1.001-1.035); Urine WBC 4 /hpf (0 - 5)
[2018-05-01 09:57] LABS: Alcohol, Urine < 3.0 mg/dL (0-5); Amphetamine Screen, Urine NEGATIVE (NEGATIVE); Barbiturate Scree,Urine NEGATIVE (NEGATIVE); Benzodiazephine Screen, Urine NEGATIVE (NEGATIVE); Cannabinoid Screen, Urine POSITIVE (NEGATIVE); Cocaine Screen, Urine NEGATIVE (NEGATIVE); Opiate Scree,Urine NEGATIVE (NEGATIVE); Phencyclidine Screen, Urine NEGATIVE (NEGATIVE)
[2018-05-01 10:54] LABS: Band Neutrophils % (manual) 5; Lymphocytes % (manual) 20 (10.0-50.0); Monocytes % (manual) 9 (0-12)
[2018-05-01 11:31] VITALS: BP 110/71
[2018-05-01] MEDS: POTASSIUM EFFERVESENT TAB 25 MEQ PO ONE ×2 (11:45→12:08)
== END 2018-05-01 12:18 | disposition home or self-care (01) ==
LOC: EDBD 06:53 → ER 06:57
DX: J45.901 Unspecified asthma with (acute) exacerbation (principal); F41.9 Anxiety disorder, unspecified; F12.90 Cannabis use, unspecified, uncomplicated; E87.6 Hypokalemia; E46 Unspecified protein-calorie malnutrition; Z68.27 Body mass index [BMI] 27.0-27.9, adult
CPT/HCPCS: 36415; 71045; 80053; 80307; 81001; 83735; 84443; 84702; 85007; 85027; 93005; 94640; 94761; 96374; 96375; 99284; J2060; J2930; J7030; J7611

== ENCOUNTER 2018-06-28 09:34 | Inpatient (IN) | payer OTHER ==
[~2018-06-28] VITALS: Ht 165.1 cm; Wt 84.6 kg
[2018-06-28] MEDS ORDERED: SODIUM CHLORIDE 0.9% 1,000 ML IV ONE (09:42)
[2018-06-28] MEDS ORDERED: methylPREDNISolone SOD SUCC 125 MG/2 ML VL IV ONE (09:45)
[2018-06-28 10:36] LABS: Basophils # (auto) 0 uL; Basophils % (auto) 0.4 % (0.0-2.0); Eosinophils # (auto) 0 uL; Eosinophils % (auto) 0.1 % (0.0-7.0); Hematocrit 42.5 % (36.0-46.0); Hemoglobin 14.6 g/dL (12.2-16.2); Lymphocytes # (auto) 2.3 uL; Lymphocytes % (auto) 31.7 % (10.0-50.0); Mean Corpuscular Hemoglobin 30.8 pg (28.0-32.0); Mean Corpuscular Hgb Conc. 34.4 g/dL (32.0-36.0); Mean Corpuscular Volume 89.5 fL (80.0-100.0); Monocytes # (auto) 0.7 uL; Monocytes % (auto) 9.8 % (0.0-12.0); Neutrophils # (auto) 4.1 uL; Nucleated Red Blood Cells % 0.1 %; Platelet Count (auto) 276 10^3/uL (140-450); Red Blood Cells 4.75 10^6/uL (4.0-5.20); Red Cell Distribution Width 15.4 % (11.8-14.3); White Blood Cell 7.1 10^3/uL (4.4-10.8)
[2018-06-28 10:53] LABS: Alanine Aminotransferase 19 U/L (13-56); Albumin 4.1 g/dL (3.4-5.0); Anion Gap 9 (5-15); Aspartate Aminotransferase 13 U/L (15-37); BUN/Creatinine Ratio 16.7; Blood Urea Nitrogen 14 mg/dL (7-18); Calcium 8.2 mg/dL (8.5-10.1); Carbon Dioxide 22 mmol/L (21-32); Chloride 111 mmol/L (98-107); GFR African American 109 mL/min; GFR Non-African American 90 mL/min; Glucose 86 mg/dL (74-106); Potassium 3.7 mmol/L (3.5-5.1); Sodium 142 mmol/L (136-145)
[2018-06-28 10:57] LABS: Alkaline Phosphatase 70 U/L (45-117); Bilirubin, Total 0.4 mg/dL (0.2-1.0); Total Protein 7.3 g/dL (6.4-8.2)
[2018-06-28] MEDS ORDERED: ONDANSETRON HCL 4 MG/2 ML VIAL ONE (11:41)
[2018-06-28] MEDS ORDERED: ONDANSETRON HCL 4 MG/2 ML VIAL IV ONE (11:45)
[2018-06-28] MEDS ORDERED: cefTRIAXone 1GM/50ML D5W 50 ML IV ONE (12:15)
[2018-06-28] MEDS ORDERED: LORazepam 2MG/ML-1ML VIAL IV ONE (12:15)
[2018-06-28 12:26] LABS: Urine Bacteria NONE SEEN /hpf (None Seen); Urine Blood 1+ /uL (Negative); Urine Specific Gravity 1.025 (1.001-1.035); Urine WBC 2 /hpf (0 - 5)
[2018-06-28] MEDS ORDERED: ACETAMINOPHEN 500 MG TAB PO PRN (13:00)
[2018-06-28] MEDS ORDERED: HYDROcodone-ACET 5/325MG TAB PO PRN (13:00)
[2018-06-28] MEDS ORDERED: OSELTAMIVIR 75 MG CAP PO ONE (13:00)
[2018-06-28] MEDS ORDERED: NITROGLYCERIN 0.4 MG SL TAB SL PRN (13:00)
[2018-06-28] MEDS ORDERED: LACTULOSE 20Gm/30ML SOLN PO PRN (13:00)
[2018-06-28] MEDS ORDERED: ALBUTEROL SULF 2.5 MG/0.5ML(0.5%) NEB SOLN NEB PRN (13:00)
[2018-06-28] MEDS ORDERED: LORazepam 0.5 MG TAB PO PRN (13:00)
[2018-06-28] MEDS ORDERED: MORPHINE SULFATE 4 MG/ML SYR/VIAL IV PRN (13:00)
[2018-06-28] MEDS: SODIUM CHLORIDE 0.9% 1,000 ML IV SCH (13:45)
[2018-06-28] MEDS ORDERED: diphenhdrAMINE HCL 25 MG CAP PO ONE (13:45)
[2018-06-28] MEDS: DOXYCYCLINE 100MG/250ML 250 ML IV SCH (14:08)
[2018-06-28 16:24] VITALS: BP 106/71
[2018-06-28 16:45] VITALS: BP 118/61
[2018-06-28] MEDS: methylPREDNISolone SOD SUCC 40 MG/ML VL IV SCH ×2 (17:42→23:58)
[2018-06-28] MEDS: diphenhdrAMINE HCL 50 MG/1 ML VL IV PRN ×2 (17:42→23:59)
[2018-06-28] MEDS: MORPHINE SULFATE 4 MG/ML SYR/VIAL IV PRN ×2 (17:43→22:03)
--- NOTE | 2018-06-28 19:07 | NUR ---
RT NOTE PT WAS SEEN BY RT FOR HHN TX. PT TOLERATES WELL VIA MOUTHPIECE. NO ADVERSE REACTION NOTED. CONT ORDERED Addendum: 06/28/18 at 1942 by Vicky Moreno RT Amended: Links added.
[2018-06-28] MEDS: ALBUTEROL SULF 2.5 MG/0.5ML(0.5%) NEB SOLN NEB SCH (19:37)
--- NOTE | 2018-06-28 19:54 | NUR ---
Telemetry admit from [facility] admitted to Telemetry unit after SBAR received. Patient oriented to NITA parmar RN, unit, room, bed, and unit policies regarding patient care and visiting hours. Patient now on continuous telemetry monitoring, tele box #2 and telemetry reading on arrival to unit is . Patient ON ROOM AIR, weighed by bedscale and encouraged to call if they need something. All questions and concerns addressed, patient verbalized understanding. Note: Addendum: 06/28/18 at 1955 by NITA LAMBERT RN TIME EDIT FOR ADMIT TO FLOOR TIME [id number]
--- NOTE | 2018-06-28 19:55 | NUR ---
END OF SHIFT NOTE PATIENT RESTING COMFORTABLY IN BED AT THIS TIME. NO S/S OF DISTRESS NOTED AT THIS TIME. BED IN LOWEST LOCKED POSITION, CALL LIGHT WITHIN REACH. CARE ENDORSED TO NOC RN.
[2018-06-28] MEDS ORDERED: IOHEXOL 350 MG/ML 100ML IJ ONE (21:13)
--- NOTE | 2018-06-28 21:15 | NUR ---
PATIENT WENT DOWN FOR CTA R/O PE.
[2018-06-28] MEDS ORDERED: OSELTAMIVIR 75 MG CAP PO SCH (22:00)
[2018-06-28] MEDS: FLUTICASONE PROPIONATE IN SCH (22:00)
[2018-06-28] MEDS: PROMETHAZINE HCL 25 MG/ML 1ML IV PRN (22:04)
[2018-06-28 22:22] VITALS: BP 128/76
[2018-06-29] MEDS: TEMAZEPAM 15 MG CAP PO PRN (00:06)
--- NOTE | 2018-06-29 00:25 | NUR ---
RT NOTE PT WAS SEEN BY RT FOR HHN TX. PT TOLERATES WELL VIA MASK. NO ADVERSE REACTION NOTED. CONT ORDERED Addendum: 06/29/18 at 0414 by Vicky Moreno RT Amended: Links added.
[2018-06-29] MEDS: ALBUTEROL SULF 2.5 MG/0.5ML(0.5%) NEB SOLN NEB SCH ×4 (00:26→19:51)
[2018-06-29] MEDS: DOXYCYCLINE 100MG/250ML 250 ML IV SCH ×2 (02:01→14:50)
[2018-06-29] MEDS: SODIUM CHLORIDE 0.9% 1,000 ML IV SCH (02:13)
[2018-06-29] MEDS: MORPHINE SULFATE 4 MG/ML SYR/VIAL IV PRN ×5 (02:16→19:47)
[2018-06-29 05:39] VITALS: BP 102/65
[2018-06-29] MEDS: diphenhdrAMINE HCL 50 MG/1 ML VL IV PRN ×3 (06:01→18:21)
[2018-06-29] MEDS: methylPREDNISolone SOD SUCC 40 MG/ML VL IV SCH ×3 (06:02→18:22)
--- NOTE | 2018-06-29 07:35 | NUR ---
OPENING SHIFT NOTE ASSUMED CARE OF PATIENT. PATIENT AWAKE AND ALERT SITTING UP IN BED. NO S/S OF DISTRESS OR SOB NOTED. BED IN LOWEST LOCKED POSITION, CALL LIGHT WITHIN REACH. REVIEWED POC WITH PATIENT AND INSTRUCTED TO CALL FOR ASSIST NEEDED. WILL CONTINUE TO MONITOR.
[2018-06-29] MEDS: PROMETHAZINE HCL 25 MG/ML 1ML IV PRN ×3 (08:30→19:46)
[2018-06-29] MEDS ORDERED: ENOXAPARIN SOD 40 MG/0.4 ML SYRINGE SC SCH (10:00)
[2018-06-29] MEDS: Tiotropium Bromide Monohydrate (Spiriva Handihaler) 18 MCG IN SCH (10:00)
[2018-06-29] MEDS: FLUTICASONE PROPIONATE IN SCH ×2 (10:00→21:54)
[2018-06-29] MEDS: PANTOPRAZOLE 40 MG TAB PO SCH (10:09)
[2018-06-29] MEDS: MONTELUKAST SODIUM 10 MG TAB PO SCH (10:09)
[2018-06-29] MEDS ORDERED: KETOROLAC TROMETH 30 MG/ML 1ML VIAL IV ONE (10:45)
[2018-06-29] MEDS ORDERED: traMADol HCL 50 MG TAB PO PRN (10:45)
[2018-06-29] MEDS: NYSTATIN (MOUTH-THROAT) 500,000 UNITS/5 ML SUSP MT SCH ×3 (12:20→21:56)
[2018-06-29] MEDS: LORazepam 2MG/ML-1ML VIAL IV PRN ×2 (13:36→19:47)
[2018-06-29 17:00] VITALS: BP 124/74
[2018-06-29] MEDS: KETOROLAC TROMETH 30 MG/ML 1ML VIAL IV PRN (18:22)
--- NOTE | 2018-06-29 18:53 | NUR ---
END OF SHIFT NOTE PATIENT AWAKE AND ALERT SITTING UP IN BED. NO S/S OF DISTRESS OR SOB NOTED. BED IN LOWEST LOCKED POSITION, CALL LIGHT WITHIN REACH. WILL ENDORSE CARE TO NOC RN.
[2018-06-29 19:35] VITALS: BP 129/76
[2018-06-29 22:15] VITALS: BP 113/62
[2018-06-30] MEDS: methylPREDNISolone SOD SUCC 40 MG/ML VL IV SCH ×5 (00:03→23:18)
[2018-06-30] MEDS: MORPHINE SULFATE 4 MG/ML SYR/VIAL IV PRN ×5 (00:03→17:49)
[2018-06-30] MEDS: PROMETHAZINE HCL 25 MG/ML 1ML IV PRN ×5 (00:03→20:40)
[2018-06-30] MEDS: ALBUTEROL SULF 2.5 MG/0.5ML(0.5%) NEB SOLN NEB SCH ×4 (00:19→18:42)
[2018-06-30] MEDS: KETOROLAC TROMETH 30 MG/ML 1ML VIAL IV PRN ×4 (01:23→20:39)
[2018-06-30] MEDS: diphenhdrAMINE HCL 50 MG/1 ML VL IV PRN ×4 (01:23→20:42)
[2018-06-30] MEDS: LORazepam 2MG/ML-1ML VIAL IV PRN ×4 (02:17→22:45)
[2018-06-30] MEDS: DOXYCYCLINE 100MG/250ML 250 ML IV SCH ×2 (02:17→13:59)
[2018-06-30 05:15] VITALS: BP 135/73
[2018-06-30] MEDS ORDERED: SODIUM CHLORIDE 0.9 % NEB SOLN 3ML NEB ONE ×2 (05:34→11:13)
[2018-06-30] MEDS: NYSTATIN (MOUTH-THROAT) 500,000 UNITS/5 ML SUSP MT SCH ×4 (06:41→22:03)
--- NOTE | 2018-06-30 07:00 | NUR ---
Opening Shift Note Assumed care of patient, awake, alert, and oriented x4. No S/S of distress/SOB, expiratory wheezes auscultated throughout both lungs, and patient reports generalized body pain of 10/10. IV in left upper arm 20 gauge, saline locked, but patient reports it is leaking. IV in right upper arm 20 gauge asymptomatic, intact, patent, and saline locked. Bed locked and in lowest position and call light is within reach. Instructed on POC and to call for assist PRN, and patient verbalized understanding. Will continue to monitor for changes Q1hr and PRN.
[2018-06-30 09:00] VITALS: BP 129/76
[2018-06-30] MEDS: Tiotropium Bromide Monohydrate (Spiriva Handihaler) 18 MCG IN SCH (10:00)
[2018-06-30] MEDS: FLUTICASONE PROPIONATE IN SCH ×2 (10:00→21:15)
[2018-06-30] MEDS: MONTELUKAST SODIUM 10 MG TAB PO SCH (10:06)
[2018-06-30] MEDS: PANTOPRAZOLE 40 MG TAB PO SCH (10:06)
--- NOTE | 2018-06-30 11:00 | NUR ---
IV removal IV DC'd with clean sterile technique, catheter fully intact. Pressure dressing applied to site. Patient tolerated well.
[2018-06-30 13:00] VITALS: BP 116/67
[2018-06-30 17:00] VITALS: BP 108/76
--- NOTE | 2018-06-30 19:27 | NUR ---
ATTEMPT TO PLACE MIDLINE, PATIENT NOT ABLE TO TOLERATE DUE TO PAIN, ATTEMPTED TWICE. TOLD PATIENT THAT TWO ATTEMPTS WERE MADE, AND THAT HER PERIPHERAL LINE FLUSHED WITH NO REDNESS AND THAT WOULD BE IN USE FOR THE EVENING. PATIENT BEGAN TO YELL, AND STATED " HOW THE FUCK AM I SUPPOSED TO GET PAIN MEDS, THIS IS FUCKING BULLSHIT. PATIENT PICKED UP PITCHER OF ICE AND THREW IT AT PICC NURSE. SECURITY WAS CALLED AND IS AT BEDSIDE.
--- NOTE | 2018-06-30 19:30 | NUR ---
Opening shift note Patient alert and oriented, crying, screaming and verbally abusive to staff. Approached patient in a calm manner and encouraged to calm self down as patient noted shaking. Patient calmed down and demanded to get her midline done, however, refuses to have the same midline/PICC nurse to do the procedure. Per patient, she wanted her pain meds now and if nurse can put on a peripheral line in the meantime. Noted DALLIN 22 gauge IV line on patient, per patient, "it is already busted" Patient allowed RN to check and RN flushed 3 ml of NS well without any complain of pain. Plan of care discussed, patient verbalized understanding. Will continue to monitor.
[2018-06-30 21:53] VITALS: BP 123/85
--- NOTE | 2018-06-30 22:59 | NUR ---
Patient complained of IV to DALLIN hurting. Assessed IV with no blood return however flushing well with no swelling or redness. Patient wants to keep the IV, however, requesting RN to start another line. Started new IV line to right thumb 24 gauge with good blood return x 1 attempt. Patient tolerated procedure with minimal discomfort. Patient verbalized appreciation. Will continue to monitor.
[2018-07-01] MEDS: TEMAZEPAM 15 MG CAP PO PRN (01:10)
[2018-07-01] MEDS: ALBUTEROL SULF 2.5 MG/0.5ML(0.5%) NEB SOLN NEB SCH ×4 (01:10→19:16)
[2018-07-01] MEDS: DOXYCYCLINE 100MG/250ML 250 ML IV SCH ×2 (02:06→15:35)
[2018-07-01] MEDS: KETOROLAC TROMETH 30 MG/ML 1ML VIAL IV PRN ×4 (02:52→22:39)
[2018-07-01] MEDS: diphenhdrAMINE HCL 50 MG/1 ML VL IV PRN ×4 (02:53→22:39)
--- NOTE | 2018-07-01 05:00 | NUR ---
Patient asked RN if Phenergan medication was given this shift. Informed patient medication was given at 2039 last nite, further explained that it was scanned in front of her and medication was given via IV while RN is explaining the indication and side effects. Patient suddenly yelled "No you did not give that medication to me, you only gave me Toradol and Benadryl!" RN told patient "I gave the medication like I said, I will be back when you are calm" RN left room and made charge nurse aware.
[2018-07-01] MEDS: LORazepam 2MG/ML-1ML VIAL IV PRN ×3 (05:13→18:03)
[2018-07-01 05:26] VITALS: BP 120/64
[2018-07-01] MEDS: methylPREDNISolone SOD SUCC 40 MG/ML VL IV SCH ×3 (05:49→18:03)
[2018-07-01] MEDS: NYSTATIN (MOUTH-THROAT) 500,000 UNITS/5 ML SUSP MT SCH ×4 (05:49→21:21)
--- NOTE | 2018-07-01 05:50 | NUR ---
RN went inside the room for 0600 meds. Patient calm and appropriately responding to staff care. Requested for Zoran alfaro and Addison at this time. All needs attended. Will continue to monitor.
--- NOTE | 2018-07-01 07:55 | NUR ---
OPENING SHIFT NOTE ASSUMED CARE OF PATIENT. PATIENT AWAKE AND ALERT SITTING UP IN BED. NO S/S OF DISTRESS OR SOB NOTED. BED IN LOWEST LOCKED POSITION, CALL LIGHT WITHIN REACH. REVIEWED POC WITH PATIENT AND INSTRUCTED TO CALL FOR ASSIST NEEDED. CONTINUING TO MONITOR.
[2018-07-01] MEDS: MORPHINE SULFATE 4 MG/ML SYR/VIAL IV PRN ×5 (08:25→21:22)
[2018-07-01] MEDS: PROMETHAZINE HCL 25 MG/ML 1ML IV PRN ×4 (08:25→21:21)
[2018-07-01 08:52] VITALS: BP 130/80
[2018-07-01] MEDS: PANTOPRAZOLE 40 MG TAB PO SCH (09:27)
[2018-07-01] MEDS: MONTELUKAST SODIUM 10 MG TAB PO SCH (09:27)
[2018-07-01] MEDS: Tiotropium Bromide Monohydrate (Spiriva Handihaler) 18 MCG IN SCH (09:27)
[2018-07-01] MEDS: FLUTICASONE PROPIONATE IN SCH ×2 (09:28→21:38)
[2018-07-01 10:48] VITALS: BP 130/80
[2018-07-01 13:00] VITALS: BP 107/70
--- NOTE | 2018-07-01 13:30 | NUR ---
LAB REFUSAL PATIENT REFUSED TO HAVE LABS DRAWN AFTER X3 ATTEMPTS TODAY. STATES SHE WANTS TO WAIT UNTIL A MIDLINE IS PLACED.
--- NOTE | 2018-07-01 14:40 | NUR ---
AT BEDSIDE DR GAYTAN AT BEDSIDE. NO NEW ORDERS PLACED. CONTINUING TO MONITOR.
[2018-07-01 17:00] VITALS: BP_SYST 120; BP_SYST 92; BP_DIAS 59; BP_DIAS 70
--- NOTE | 2018-07-01 18:26 | NUR ---
END OF SHIFT NOTE PATIENT SITTING UP IN BED. INFORMED THAT MIDLINE NURSE WAS UNABLE TO MAKE IT IN TODAY. PATIENT ASKED WHY, THIS RN EXPLAINED THAT DUE TO THE FACT SHE HAS A WORKING IV THE MIDLINE NURSE MUST ATTEMPT TO OBTAIN ACCESS ON PATIENTS WHO DO NOT HAVE IV ACCESS. PATIENT BEGAN TO YELL AND HIT THE BED IN ANGER. THIS RN REMINDED THE PATIENT ALTHOUGH SHE IS FRUSTRTATED THERE ARE PATIENTS IN THE ROOM NEXT DOOR AND SHE NEEDS TO TRY TO KEEP IT DOWN. PATIENT STATED "I DONT CARE, I GO THROUGH THIS EVERY TIME! I HATE THIS [facility]!" THIS RN APOLOGIZED AND EXPLAINED THAT THIS RN DID EVERYTHING POSSIBLE TO ASSIST IN GETTING IT DONE TODAY BUT IT WAS NOT POSSIBLE WE ONLY HAVE ONE MIDLINE RN IN A DAY THEN LEFT THE ROOM. PATIENT SHOWED NO S/S OF DISTRESS OR SOB UPON LAST CONTACT
[2018-07-01 22:00] VITALS: BP 122/71
[2018-07-02] MEDS: methylPREDNISolone SOD SUCC 40 MG/ML VL IV SCH ×2 (00:16→06:55)
[2018-07-02] MEDS: LORazepam 2MG/ML-1ML VIAL IV PRN ×2 (00:16→08:38)
[2018-07-02] MEDS: ALBUTEROL SULF 2.5 MG/0.5ML(0.5%) NEB SOLN NEB SCH ×2 (00:53→06:22)
[2018-07-02] MEDS: DOXYCYCLINE 100MG/250ML 250 ML IV SCH (01:26)
[2018-07-02] MEDS: PROMETHAZINE HCL 25 MG/ML 1ML IV PRN ×2 (01:26→06:55)
[2018-07-02] MEDS: MORPHINE SULFATE 4 MG/ML SYR/VIAL IV PRN ×2 (01:26→06:55)
[2018-07-02] MEDS: diphenhdrAMINE HCL 50 MG/1 ML VL IV PRN ×2 (03:31→09:46)
[2018-07-02] MEDS: KETOROLAC TROMETH 30 MG/ML 1ML VIAL IV PRN ×2 (03:31→09:46)
[2018-07-02 05:00] VITALS: BP 115/69
--- NOTE | 2018-07-02 05:50 | NUR ---
Patient refused lab draw and asked the lab associate to come back later.
[2018-07-02] MEDS: NYSTATIN (MOUTH-THROAT) 500,000 UNITS/5 ML SUSP MT SCH (06:54)
--- NOTE | 2018-07-02 08:00 | NUR ---
INCENTIVE SPIROMETER ATTEMPTED TO EDUCATED PATIENT ABOUT AND USE OF INCENTIVE SPIROMETER. PATIENT REFUSED, STATING "IT MAKES ME WORSE." WILL CONTINUE TO MONITOR.
[2018-07-02] MEDS: PANTOPRAZOLE 40 MG TAB PO SCH (08:38)
[2018-07-02] MEDS: MONTELUKAST SODIUM 10 MG TAB PO SCH (08:39)
[2018-07-02 09:08] VITALS: BP 126/88
--- NOTE | 2018-07-02 09:14 | NUR ---
Midline Consult Per primary RN, order canceled as pt is going to be discharged today.
[2018-07-02] MEDS: FLUTICASONE PROPIONATE IN SCH (09:19)
[2018-07-02] MEDS: Tiotropium Bromide Monohydrate (Spiriva Handihaler) 18 MCG IN SCH (09:20)
[2018-07-02 09:56] VITALS: BP 126/88
== END 2018-07-02 10:45 | disposition home or self-care (01) | DRG 145 ==
LOC: EDBD 09:34 → ER 09:38 → TELE 12:58 → TELE-EAST 16:12
PROVIDERS: ADMIT Internal Medicine; ATTEND Internal Medicine
DX: J20.9 Acute bronchitis, unspecified (principal); B37.0 Candidal stomatitis; J44.0 Chronic obstructive pulmonary disease with (acute) lower respiratory infection; J44.1 Chronic obstructive pulmonary disease with (acute) exacerbation; J45.901 Unspecified asthma with (acute) exacerbation; F41.9 Anxiety disorder, unspecified; F12.10 Cannabis abuse, uncomplicated; J98.11 Atelectasis; Z88.3 Allergy status to other anti-infective agents; Z91.012 Allergy to eggs; Z91.010 Allergy to peanuts; Z88.8 Allergy status to other drugs, medicaments and biological substances; Z91.018 Allergy to other foods; Z79.899 Other long term (current) drug therapy; Z80.1 Family history of malignant neoplasm of trachea, bronchus and lung; Z80.3 Family history of malignant neoplasm of breast; Z80.41 Family history of malignant neoplasm of ovary; Z80.8 Family history of malignant neoplasm of other organs or systems; Z81.8 Family history of other mental and behavioral disorders; Z82.0 Family history of epilepsy and other diseases of the nervous system; Z82.3 Family history of stroke; Z82.49 Family history of ischemic heart disease and other diseases of the circulatory system; Z82.5 Family history of asthma and other chronic lower respiratory diseases; Z82.62 Family history of osteoporosis; Z83.3 Family history of diabetes mellitus; Z86.711 Personal history of pulmonary embolism; Z86.718 Personal history of other venous thrombosis and embolism
CPT/HCPCS: 36415; 71045; 71275; 80053; 81001; 84484; 85025; 85379; 87040; 87804; 93005; 94640; 96365; 96375; A6257; G0378; J0696; J1885; J2405; J3490

== ENCOUNTER 2018-07-14 16:57 | Emergency (ER) | payer OTHER ==
[~2018-07-14] VITALS: Ht 167.6 cm; Wt 79.4 kg
[2018-07-14] MEDS ORDERED: LEVOFLOXACIN 750MG 150 ML IV ONE ×2 (19:00→19:30)
[2018-07-14] MEDS ORDERED: ALBUTEROL SULF 2.5 MG/0.5ML(0.5%) NEB SOLN HHN ONE (19:00)
[2018-07-14] MEDS ORDERED: methylPREDNISolone SOD SUCC 125 MG/2 ML VL IV ONE ×2 (19:00→19:30)
--- NOTE | 2018-07-14 19:10 | NUR ---
Respiratory note: PEAK FLOW ASSESSMENT DONE ON PT AT THIS TIME POST MED NEB TX. BEST OUT OF 3 (270ML). GOOD PT EFFORT. PT TOLERATED WELL AND IS NOW RESTING COMFORTABLY.
[2018-07-14 19:13] LABS: Basophils # (auto) 0 uL; Basophils % (auto) 0.1 % (0.0-2.0); Eosinophils # (auto) 0 uL; Hematocrit 42.1 % (36.0-46.0); Hemoglobin 14.2 g/dL (12.2-16.2); Lymphocytes % (auto) 19.5 % (10.0-50.0); Mean Corpuscular Hemoglobin 30.5 pg (28.0-32.0); Mean Corpuscular Hgb Conc. 33.7 g/dL (32.0-36.0); Mean Corpuscular Volume 90.6 fL (80.0-100.0); Monocytes % (auto) 9.9 % (0.0-12.0); Neutrophils # (auto) 7.4 uL; Neutrophils % (auto) 70.5 % (37.0-80.0); Platelet Count (auto) 213 10^3/uL (140-450); Red Blood Cells 4.65 10^6/uL (4.0-5.20); Red Cell Distribution Width 15.1 % (11.8-14.3); White Blood Cell 10.4 10^3/uL (4.4-10.8)
[2018-07-14] MEDS: MAGNESIUM SULFATE 1GM/100ML 100 ML IV SCH ×2 (19:51→20:30)
[2018-07-14 20:15] LABS: Albumin 3.8 g/dL (3.4-5.0); BUN/Creatinine Ratio 15.6; Calcium 8.8 mg/dL (8.5-10.1); Magnesium 2.1 mg/dL (1.6-2.6); Potassium 3.8 mmol/L (3.5-5.1)
[2018-07-14 20:17] LABS: Bilirubin, Total 0.6 mg/dL (0.2-1.0); Total Protein 6.8 g/dL (6.4-8.2)
[2018-07-14] MEDS ORDERED: ACETAMINOPHEN 325 MG TAB PO ONE (21:15)
[2018-07-14 22:14] VITALS: BP 120/95
== END 2018-07-14 23:08 | disposition home or self-care (01) ==
LOC: EDBD 16:57 → ER 16:57
DX: J45.909 Unspecified asthma, uncomplicated (principal); F12.10 Cannabis abuse, uncomplicated; Z87.440 Personal history of urinary (tract) infections
CPT/HCPCS: 36415; 36600; 71045; 80053; 82805; 83735; 83880; 84702; 85025; 85379; 93005; 94640; 94761; 96365; 96366; 96368; 96375; 99284; J1956; J2930; J3475; J7611

== ENCOUNTER 2018-09-23 07:16 | Inpatient (IN) | payer OTHER | END 2018-09-28 12:45 | disposition home or self-care (01) | LOC: ER 07:16 → OVERFLOW 11:17 → CENTRAL 14:54 | DX: J45.41 Moderate persistent asthma with (acute) exacerbation (principal); B37.9 Candidiasis, unspecified; F41.9 Anxiety disorder, unspecified; J40 Bronchitis, not specified as acute or chronic; J98.11 Atelectasis; K21.9 Gastro-esophageal reflux disease without esophagitis; K62.5 Hemorrhage of anus and rectum ==

== ENCOUNTER 2018-10-09 15:31 | Inpatient (IN) | payer OTHER ==
[~2018-10-09] VITALS: Ht 167.6 cm; Wt 84.8 kg
[~2018-10-09 15:31] MED LIST changes: -AZIT250T8 PO; -FLUT1INH6 IN; -ONDA4TAB5 PO
[2018-10-09] MEDS ORDERED: methylPREDNISolone SOD SUCC 125 MG/2 ML VL ONE (15:54)
[2018-10-09] MEDS ORDERED: ALBUTEROL SULF 2.5 MG/0.5ML(0.5%) NEB SOLN NEB ONE ×2 (16:00→23:10)
[2018-10-09] MEDS ORDERED: methylPREDNISolone SOD SUCC 125 MG/2 ML VL IM ONE (16:00)
[2018-10-09 16:34] LABS: Basophils # (auto) 0 uL; Basophils % (auto) 0.3 % (0.0-2.0); Eosinophils % (auto) 7.6 % (0.0-7.0); Hematocrit 44.1 % (36.0-46.0); Hemoglobin 14.9 g/dL (12.2-16.2); Lymphocytes # (auto) 3.4 uL; Lymphocytes % (auto) 25.4 % (10.0-50.0); Mean Corpuscular Hemoglobin 30.1 pg (28.0-32.0); Mean Corpuscular Hgb Conc. 33.8 g/dL (32.0-36.0); Monocytes % (auto) 7.4 % (0.0-12.0); Neutrophils % (auto) 59.3 % (37.0-80.0); Platelet Count (auto) 191 10^3/uL (140-450); Red Blood Cells 4.95 10^6/uL (4.0-5.20); Red Cell Distribution Width 15.2 % (11.8-14.3); White Blood Cell 13.5 10^3/uL (4.4-10.8)
[2018-10-09 16:39] LABS: Albumin 4.1 g/dL (3.4-5.0); BUN/Creatinine Ratio 13.9; Calcium 8.9 mg/dL (8.5-10.1); Potassium 3.7 mmol/L (3.5-5.1)
[2018-10-09 16:42] LABS: Bilirubin, Total 0.4 mg/dL (0.2-1.0); Total Protein 7.4 g/dL (6.4-8.2)
[2018-10-09 17:54] LABS: Urine Bacteria NONE SEEN /hpf (None Seen); Urine Blood Negative /uL (Negative); Urine Specific Gravity 1.023 (1.001-1.035); Urine WBC 2 /hpf (0 - 5)
--- NOTE | 2018-10-09 18:31 | NUR ---
Midline insertion. 4F 20cm midline IV catheter inserted easily into the right brachial vein on first attempt. Pt very anxious. Good blood return. Flushed easily with NS. Lot# of catheter is [id number], Sure-lock, [employer], and clear sterile dressing applied. Nurse notified.
[2018-10-09] MEDS ORDERED: diphenhdrAMINE HCL 50 MG/1 ML VL IV ONE (21:00)
[2018-10-09] MEDS ORDERED: ONDANSETRON HCL 4 MG/2 ML VIAL IV ONE (21:00)
[2018-10-09] MEDS ORDERED: ACETAMINOPHEN 325 MG TAB PO PRN (23:45)
[2018-10-09] MEDS ORDERED: ALBUTEROL SULF 2.5 MG/0.5ML(0.5%) NEB SOLN NEB PRN (23:45)
[2018-10-10] VITALS (7 sets, daily range): BP systolic 99–147; BP diastolic 60–77
--- NOTE | 2018-10-10 00:30 | NUR ---
Admitted to room 289. Alert and oriented x4. No respiratory distress at this time. Immediately upon meeting her shes informing me of what she needs and what works for her in regards to medications. Wants IV pain medicine for her heart burn. Benadryl IV due to all the medicine shes taking causes her to itch etc. Skin clear. MRSA swab to be sent to lab. Patient is in and out of the hospital on a regular basis for her asthma/respiratory issues. Was just discharged from here 09/28. Was also at [facility] over the last 1-2 months. IV is midline to DALLIN placed in ER. Flushed with 10 ml saline. Extra pillow and blanket given along with sandwich and snacks. Discussed POC. Oriented to room and hospital policies, verbalized understanding. Bed low and call light within reach
[2018-10-10] MEDS: LORazepam 2MG/ML-1ML VIAL IV PRN ×2 (01:27→15:09)
[2018-10-10] MEDS: TEMAZEPAM 15 MG CAP PO PRN (01:55)
--- NOTE | 2018-10-10 02:00 | NUR ---
Paged hospitalist per patients request for Benadryl, tums, and pain medicine for heart burn stronger than tylenol. No respiratory distress noted. On room air mostly. Oxygen tubing given and set if needed. Will apply cannula after ambulating to bathroom. Call light within reach.
[2018-10-10] MEDS ORDERED: CALCIUM CARB 500 MG CHEW TAB PO ONE (02:15)
[2018-10-10] MEDS: ALBUTEROL SULF 2.5 MG/0.5ML(0.5%) NEB SOLN NEB SCH ×6 (02:28→22:15)
[2018-10-10] MEDS: diphenhdrAMINE HCL 50 MG/1 ML VL IV PRN ×4 (03:09→22:29)
[2018-10-10] MEDS: BUDESONIDE (INHALATION) 0.5 MG/2 ML NEB NEB SCH ×2 (06:03→19:11)
--- NOTE | 2018-10-10 06:17 | NUR ---
Patient agitated due to no orders for solumedrol. Received one dose in ER but stated "thats the reason im here, why arent they ordering it?" Paged hospitalist. Will endorse to am shift. Pulled blood draw from midline. Flushed and changed port afterwards. Gave me a little trouble getting the amount of blood I needed, but believe I was able to get just enough for labs ordered. Patient still wide awake. Medicine given (ativan, benadryl, restoril) did not seem to make her very sleepy. Call light within reach
[2018-10-10 06:34] LABS: Basophils # (auto) 0 uL; Basophils % (auto) 0.4 % (0.0-2.0); Eosinophils # (auto) 0 uL; Eosinophils % (auto) 0.3 % (0.0-7.0); Hematocrit 39.5 % (36.0-46.0); Hemoglobin 13.3 g/dL (12.2-16.2); Lymphocytes # (auto) 1.2 uL; Lymphocytes % (auto) 11.5 % (10.0-50.0); Mean Corpuscular Hgb Conc. 33.7 g/dL (32.0-36.0); Mean Corpuscular Volume 88.9 fL (80.0-100.0); Monocytes # (auto) 0.8 uL; Monocytes % (auto) 7.6 % (0.0-12.0); Neutrophils # (auto) 8.1 uL; Neutrophils % (auto) 80.2 % (37.0-80.0); Nucleated Red Blood Cells % 0.2 %; Platelet Count (auto) 149 10^3/uL (140-450); Red Blood Cells 4.44 10^6/uL (4.0-5.20); Red Cell Distribution Width 15.1 % (11.8-14.3); White Blood Cell 10.1 10^3/uL (4.4-10.8)
--- NOTE | 2018-10-10 07:45 | NUR ---
opening patient awake in bed, agitated about solumedrol not being ordered. Very angry and upset. Vital signs are stable, however patient c/o shortness of breath and chest wall pain.Paging respiratory, but she said they just left, and 'its ok" . She is concerned mainly about solumedrol. Awaiting doctors list at this point will continue to closely monitor this patient
[2018-10-10] MEDS: PANTOPRAZOLE 40 MG TAB PO SCH (08:05)
[2018-10-10] MEDS: ONDANSETRON HCL 4 MG/2 ML VIAL IV PRN ×3 (08:05→20:43)
--- NOTE | 2018-10-10 12:53 | NUR ---
nurse note patient upset and agitated told aid and cussing that she has not seen any doctor. According to doctor's list it is dr garay sent out a page to doctor. regarding patient's concern on not being on solumedrol
--- NOTE | 2018-10-10 12:56 | NUR ---
current vital signs 98 % saturation on 2 L nasal cannula 106/69 blood pressure 98 degree F temp 91 heart rate 18 respiratory rate patient is c/o no doctor and no solumedrol orders.
--- NOTE | 2018-10-10 14:17 | NUR ---
NURSE NOTE alert 's AMALIA about patient's chest wall pain, and talked about patients want for solumedrol she states they're in clinic until 430pm but she will let him know, and if new orders given will call me back
--- NOTE | 2018-10-10 14:54 | NUR ---
MD SALGUERO NEW ORDERS, SOLUMEDROL AND NORCO WILL ADMINISTER ORDERED
[2018-10-10] MEDS ORDERED: methylPREDNISolone SOD SUCC 125 MG/2 ML VL IV SCH (15:00)
--- NOTE | 2018-10-10 17:50 | NUR ---
md garay at bedside rounding
[2018-10-10] MEDS: KETOROLAC TROMETH 30 MG/ML 1ML VIAL IV SCH (18:13)
--- NOTE | 2018-10-10 19:35 | NUR ---
Opening Shift Note Assumed care of patient, awake and alert. No S/S of distress/SOB on 2 liters, no distress. Patient insisted to know pain management scheduled times. Patient board showing times. Patient ambulated on own but still instructed to call for assist when needed with call light within reach. Will continue to monitor for changes. Signed: 10/10/18 at 2317 by SN JOSELINE <Co-Signature Required> Co-Signed: 10/10/18 at 2317 by MOUSTAPHA RICARDO RN
--- NOTE | 2018-10-10 20:00 | NUR ---
PAGED HOSPITALIST PHARMACY CALLED REGARDING SCHEDULED AUGMENTIN 500 MG Q8 HR ORDERED BY DOCTOR SALGUERO. PHARMACY DOES NOT HAVE THAT DOSE . THEY HAVE IT IN 875 MG PO Q12 HOURS. WILL PAGE HOSPITALIST. ALSO PATIENT REQUESTING PRN MORPHINE AWAITING CALL BACK.
[2018-10-10] MEDS: HYDROcodone-ACET 7.5/325MG TAB PO PRN (20:46)
--- NOTE | 2018-10-10 21:50 | NUR ---
FAUZIA HOSPITALIST AT RN STATION UPDATED WITH PHARMACY'S REQUEST TO CHANGE AMOXICILLIN DOES PER 500 MG PO TAB NOT IN STOCK. VERBAL ORDERS RECEIVED TO CHANGE DOSE TO AMOXICILLIN 875 MG PO Q12 READ BACK AND VERIFIED
[2018-10-10] MEDS ORDERED: AMOXICILLIN/CLAVULAN 500 MG TAB PO SCH (22:00)
--- NOTE | 2018-10-10 22:00 | NUR ---
Respiratory note: PEAK FLOW= 300ML. PT WAS ONLY ABLE TO ATTEMPT 1X. PT BECAME SOB.
[2018-10-10] MEDS: AMOXICILLIN/CLAVUL 875 MG TAB PO SCH (22:28)
[2018-10-10] MEDS: MONTELUKAST SODIUM 10 MG TAB PO SCH (22:29)
[2018-10-11] MEDS: methylPREDNISolone SOD SUCC 125 MG/2 ML VL IV SCH ×4 (00:07→18:26)
[2018-10-11] MEDS: KETOROLAC TROMETH 30 MG/ML 1ML VIAL IV SCH ×4 (00:11→18:27)
[2018-10-11] MEDS: TEMAZEPAM 15 MG CAP PO PRN (00:12)
[2018-10-11] MEDS: HYDROcodone-ACET 7.5/325MG TAB PO PRN ×4 (01:11→21:29)
[2018-10-11] MEDS: LORazepam 2MG/ML-1ML VIAL IV PRN ×2 (04:02→16:26)
[2018-10-11 04:40] VITALS: BP 114/70
[2018-10-11] MEDS: diphenhdrAMINE HCL 50 MG/1 ML VL IV PRN ×4 (04:49→23:12)
[2018-10-11] MEDS: ONDANSETRON HCL 4 MG/2 ML VIAL IV PRN ×5 (05:00→23:14)
[2018-10-11] MEDS: BUDESONIDE (INHALATION) 0.5 MG/2 ML NEB NEB SCH ×2 (06:22→19:15)
[2018-10-11] MEDS: ALBUTEROL SULF 2.5 MG/0.5ML(0.5%) NEB SOLN NEB SCH ×5 (06:22→22:00)
--- NOTE | 2018-10-11 06:22 | NUR ---
PEAK FLOW 230/250LPM.
--- NOTE | 2018-10-11 07:30 | NUR ---
Opening Shift Note Assuming care of patient. Patient is resting in bed on telephone. Patient denies pain, but does have some nausea. Will medicate per doctor's orders. Patient's bed is locked and lowered with side rails up x2. Instructed patient on the plan of care for today and to call for assistance as needed. Call light within reach. Will continue to round hourly and as needed.
[2018-10-11 08:00] VITALS: BP 108/57
[2018-10-11] MEDS: PANTOPRAZOLE 40 MG TAB PO SCH (09:11)
[2018-10-11] MEDS: AMOXICILLIN/CLAVUL 875 MG TAB PO SCH ×2 (09:13→21:20)
[2018-10-11 12:00] VITALS: BP 122/74
--- NOTE | 2018-10-11 14:00 | NUR ---
Re: Pain Medication Patient is requesting morphine at this time. Notified Dr. Ellis. Dr. Ellis does not feel that it is indicated at this time. Will notify patient.
--- NOTE | 2018-10-11 14:05 | NUR ---
Re: Pain Medication Notified patient that Dr. Ellis does not feel that morphine is indicated at this time. Patient verbalizes that she is upset. Patient will continue to take [place] as directed.
[2018-10-11 16:00] VITALS: BP 132/75
--- NOTE | 2018-10-11 19:20 | NUR ---
Closing Note Patient is resting in bed. Patient has been medicated for pain. Friend at bedside. Report given. Will endorse care to the warehouse supervisor 3rd shift RN.
--- NOTE | 2018-10-11 19:30 | NUR ---
Opening Shift Note Assumed care of patient, awake and alert X4. No S/S of distress/SOB on 2 liters, no distress noted at this time. Patient ambulates independently bathroom. Instructed to call for assist when needed, call light within reach. Visitor at bedside. Will continue to monitor for changes.
[2018-10-11] MEDS: MONTELUKAST SODIUM 10 MG TAB PO SCH (21:21)
[2018-10-11 22:00] VITALS: BP 126/77
--- NOTE | 2018-10-12 | NUR ---
MID Line Dressing Changes Dressing change done with a sterile technique. Cleansed with ChloraPrep scrub. Bio-patch changed, occlusive dressing applied. Patient tolerated well.
[2018-10-12] MEDS: KETOROLAC TROMETH 30 MG/ML 1ML VIAL IV SCH ×4 (00:10→18:12)
[2018-10-12] MEDS: TEMAZEPAM 15 MG CAP PO PRN (00:10)
[2018-10-12] MEDS: methylPREDNISolone SOD SUCC 125 MG/2 ML VL IV SCH ×4 (00:11→18:12)
[2018-10-12 04:32] VITALS: BP 108/68
[2018-10-12] MEDS: ONDANSETRON HCL 4 MG/2 ML VIAL IV PRN ×3 (04:42→20:04)
[2018-10-12] MEDS: LORazepam 2MG/ML-1ML VIAL IV PRN ×2 (04:43→17:01)
[2018-10-12] MEDS: diphenhdrAMINE HCL 50 MG/1 ML VL IV PRN ×3 (05:44→18:12)
--- NOTE | 2018-10-12 07:30 | NUR ---
Opening Shift Note Assuming care of patient at this time. Patient is resting in bed. Bed is locked and lowered with side rails up x2. Patient is being medicated for pain as ordered. Patient shows no signs or symptoms of distress or shortness of breath. Will continue to round hourly and as needed.
[2018-10-12] MEDS: ALBUTEROL SULF 2.5 MG/0.5ML(0.5%) NEB SOLN NEB SCH ×5 (07:56→22:49)
[2018-10-12] MEDS: BUDESONIDE (INHALATION) 0.5 MG/2 ML NEB NEB SCH ×2 (07:57→19:26)
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
[2018-10-12] MEDS: PANTOPRAZOLE 40 MG TAB PO SCH (08:22)
[2018-10-12 08:53] VITALS: BP 110/70
[2018-10-12] MEDS: AMOXICILLIN/CLAVUL 875 MG TAB PO SCH (09:00)
[2018-10-12] MEDS: HYDROcodone-ACET 7.5/325MG TAB PO PRN ×3 (09:01→20:06)
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
--- NOTE | 2018-10-12 10:33 | NUR ---
Respiratory note: PEAK LOW 160/250ML
[2018-10-12] MEDS ORDERED: CELECOXIB 100 MG CAP PO PRN (12:15)
[2018-10-12] MEDS ORDERED: CELECOXIB 100 MG CAP PO ONE (12:15)
[2018-10-12 14:03] VITALS: BP 127/88
--- NOTE | 2018-10-12 14:23 | NUR ---
Page to Dr. Ellis Patient is experiencing some discomfort from medication. Page to Dr. Ellis at this time to make aware.
--- NOTE | 2018-10-12 14:43 | NUR ---
Adverse Medication Reaction Patient states that the celebrex has caused her to have some facial tingling. Her tongue and arms are tingling and "feeling funny." Vitals signs are 109/72, heart rate 87, oxygen saturation is 95%. EKG done.
--- NOTE | 2018-10-12 14:45 | NUR ---
Call from Dr. Rhonda Ellis aware of patient's reaction to celebrex medication. Dr. Ellis gave orders to stop medication. No other new orders given at this time.
--- NOTE | 2018-10-12 14:46 | NUR ---
Vitals Signs Patient is still experiencing reaction. Blood Pressure is 109/73, heart rate is 82. Patients arms and face do not appear swollen. Patient feels swollen.
--- NOTE | 2018-10-12 16:45 | NUR ---
Patient status Patient states that she is no longer thinking of the medication reaction. She is listening to music and verbalizes that it has helped her.
[2018-10-12 17:19] VITALS: BP 128/72
--- NOTE | 2018-10-12 19:00 | NUR ---
Closing Note Patient is resting in bed. Patient has been medicated for pain. Patient shows no signs or symptoms of distress or shortness of breath. Will endorse care to the senior cobol developer RN.
--- NOTE | 2018-10-12 19:05 | NUR ---
Opening Shift Note Assumed care of patient, awake and alert. No S/S of distress/SOB or pain. Instructed on POC and to call for assist PRN, will continue to monitor for changes Q1hr and PRN.
--- NOTE | 2018-10-12 19:31 | NUR ---
PT REFUSING PEAK FLOW ASSESSMENT AT THIS TIME. MED NEB TX ADMINISTERED SCHEDULED. NO ADVERSE REACTION NOTED.
[2018-10-12 21:48] VITALS: BP 113/76
[2018-10-13] MEDS: AMOXICILLIN/CLAVUL 875 MG TAB PO SCH ×3 (00:03→23:05)
[2018-10-13] MEDS: MONTELUKAST SODIUM 10 MG TAB PO SCH ×2 (00:04→23:06)
[2018-10-13] MEDS: methylPREDNISolone SOD SUCC 125 MG/2 ML VL IV SCH ×4 (00:04→18:09)
[2018-10-13] MEDS: KETOROLAC TROMETH 30 MG/ML 1ML VIAL IV SCH ×4 (00:05→18:09)
[2018-10-13] MEDS: ONDANSETRON HCL 4 MG/2 ML VIAL IV PRN ×5 (00:05→18:56)
[2018-10-13] MEDS: diphenhdrAMINE HCL 50 MG/1 ML VL IV PRN ×5 (00:05→18:56)
[2018-10-13] MEDS: HYDROcodone-ACET 7.5/325MG TAB PO PRN ×4 (00:06→12:14)
[2018-10-13] MEDS: TEMAZEPAM 15 MG CAP PO PRN (01:03)
[2018-10-13] MEDS: LORazepam 2MG/ML-1ML VIAL IV PRN ×2 (04:49→17:07)
[2018-10-13 04:54] VITALS: BP 117/74
[2018-10-13] MEDS: BUDESONIDE (INHALATION) 0.5 MG/2 ML NEB NEB SCH ×2 (06:27→20:05)
[2018-10-13] MEDS: ALBUTEROL SULF 2.5 MG/0.5ML(0.5%) NEB SOLN NEB SCH ×5 (06:27→22:17)
--- NOTE | 2018-10-13 07:00 | NUR ---
OPENING NOTE RECEIVED REPORT FROM BUSINESS PLANNING ANALYST NURSE. PT SLEEPING IN BED WITH HEAD OF BED AT 30 DEGREES. NO SIGNS OF DISTRESS OR SHORTNESS OF BREATH AT THIS TIME. PT IS NOT SHOWING SIGNS OF PAIN. MIDLINE IS CLEAN AND INTACT WITH ABILITY TO FLUSH. BED IS LOCKED IN LOWEST POSITION WITH SIDE RAILS UP AND CALL LIGHT WITHIN REACH. WILL CONTINUE TO MONITOR THROUGHOUT SHIFT
[2018-10-13] MEDS: PANTOPRAZOLE 40 MG TAB PO SCH (07:53)
[2018-10-13 08:42] VITALS: BP 108/72
--- NOTE | 2018-10-13 10:06 | NUR ---
Respiratory note: PT REFUSED PEAK FLOW ASSESSMENTS.STATING IT MAKES HER COUGH UNCONTROLLABLY.
--- NOTE | 2018-10-13 10:30 | NUR ---
Patient has multiple complaints. She states se has pain when she inhales. She states the pain causes nausea. She states she does not feel well and the [place] is not effective for her pain. Will inform hospitalist. Will medicate PRN for nausea, pain.
--- NOTE | 2018-10-13 12:01 | NUR ---
NUTRITION CONSULT/ASSESSMENT NOTES Please refer to link notes of nutrition screen form filed under the intervention section of the plan of care for further details. Est. Needs: 1650 kcal to 2150 kcal (20-25 kcal/kgBW), 67 gms to 84 gms pro (0.8-1.0 gms/kgBW). Will continue to monitor pertinent labs and reassess nutrient need prn Thank you for this consult. Addendum: 10/13/18 at [address] Amended: Links added.
--- NOTE | 2018-10-13 13:35 | NUR ---
Dr. Ellis informed that patient states the [place] is ineffective for her pain.
[2018-10-13 13:55] VITALS: BP 121/85
[2018-10-13 16:59] VITALS: BP 124/76
[2018-10-13] MEDS: HYDROcodone-ACET 10/325MG TAB PO PRN (18:10)
[2018-10-13 22:00] VITALS: BP 129/78
[2018-10-14] MEDS: ONDANSETRON HCL 4 MG/2 ML VIAL IV PRN ×4 (00:38→18:58)
[2018-10-14] MEDS: KETOROLAC TROMETH 30 MG/ML 1ML VIAL IV SCH ×3 (00:38→12:32)
[2018-10-14] MEDS: diphenhdrAMINE HCL 50 MG/1 ML VL IV PRN ×4 (00:38→18:58)
[2018-10-14] MEDS: methylPREDNISolone SOD SUCC 125 MG/2 ML VL IV SCH ×4 (00:40→17:31)
[2018-10-14] MEDS: HYDROcodone-ACET 10/325MG TAB PO PRN ×4 (00:41→18:58)
[2018-10-14] MEDS: TEMAZEPAM 15 MG CAP PO PRN (01:47)
[2018-10-14] MEDS: LORazepam 2MG/ML-1ML VIAL IV PRN ×2 (04:44→17:31)
[2018-10-14 05:00] VITALS: BP 135/103
[2018-10-14] MEDS: ALBUTEROL SULF 2.5 MG/0.5ML(0.5%) NEB SOLN NEB SCH ×5 (06:08→22:31)
--- NOTE | 2018-10-14 07:30 | NUR ---
OPENING NOTE ASSUMED CARE OF PT. PT IS ALERT AND ORIENTED. NO SIGNS OF SOB/DISTRESS NOTED. BED SET TO LOWEST POSITION/LOCKED. BEDSIDE RAILS UP X2. CALL LIGHT WITHIN REACH. INSTRUCTED PT TO CALL FOR ASSISTANCE. DISCUSSED POC WITH PT. WILL CONTINUE TO MONITOR Q 1HR AND PRN.
[2018-10-14 08:10] VITALS: BP 118/72
[2018-10-14] MEDS: AMOXICILLIN/CLAVUL 875 MG TAB PO SCH ×2 (09:20→22:57)
[2018-10-14] MEDS: PANTOPRAZOLE 40 MG TAB PO SCH (09:20)
[2018-10-14] MEDS: BUDESONIDE (INHALATION) 0.5 MG/2 ML NEB NEB SCH ×2 (09:52→22:31)
--- NOTE | 2018-10-14 09:52 | NUR ---
Respiratory note: PEAK FLOW: 245. PATIENT STATED SHE ONLY WANTED TO DO IT ONCE. Addendum: 10/14/18 at 1351 by ELLY RAHMAN, RT RT Amended: Links added.
[2018-10-14 13:58] VITALS: BP 109/46
[2018-10-14 16:59] VITALS: BP 124/75
[2018-10-14] MEDS: KETOROLAC TROMETH 60MG/2ML VIAL IM SCH (17:31)
--- NOTE | 2018-10-14 19:14 | NUR ---
ENDORSED CARE TO WILFRID COREY.
[2018-10-14 22:00] VITALS: BP 138/96
--- NOTE | 2018-10-14 22:40 | NUR ---
RT NOTE: PEAK FLOW 260. PT STATED SHE ONLY WANTED TO DO IT ONE TIME BECAUSE IT MAKES HER COUGH.
[2018-10-14] MEDS: MONTELUKAST SODIUM 10 MG TAB PO SCH (22:57)
[2018-10-15] MEDS: methylPREDNISolone SOD SUCC 125 MG/2 ML VL IV SCH ×4 (00:32→19:01)
[2018-10-15] MEDS: KETOROLAC TROMETH 60MG/2ML VIAL IM SCH ×3 (00:39→13:00)
[2018-10-15] MEDS: diphenhdrAMINE HCL 50 MG/1 ML VL IV PRN ×3 (00:39→19:47)
[2018-10-15] MEDS: HYDROcodone-ACET 10/325MG TAB PO PRN ×3 (00:40→17:35)
[2018-10-15] MEDS: TEMAZEPAM 15 MG CAP PO PRN (02:18)
[2018-10-15] MEDS: ONDANSETRON HCL 4 MG/2 ML VIAL IV PRN ×2 (05:39→17:15)
[2018-10-15] MEDS: LORazepam 2MG/ML-1ML VIAL IV PRN ×2 (05:39→17:35)
[2018-10-15 05:52] VITALS: BP 129/83
--- NOTE | 2018-10-15 07:30 | NUR ---
Opening Shift Note Patient is resting in bed. Patient is awake, alert, and oriented x4. Patient states she is having some pain. Patient shows no signs or symptoms of shortness of breath. Will medicate per doctor's orders. Instructed patient to call for assistance as needed. Call light within reach. Will continue to round hourly and as needed.
[2018-10-15] MEDS: ALBUTEROL SULF 2.5 MG/0.5ML(0.5%) NEB SOLN NEB SCH ×4 (07:49→19:21)
[2018-10-15 09:00] VITALS: BP 132/92
[2018-10-15] MEDS: AMOXICILLIN/CLAVUL 875 MG TAB PO SCH (10:22)
[2018-10-15] MEDS: PANTOPRAZOLE 40 MG TAB PO SCH (10:24)
[2018-10-15] MEDS: BUDESONIDE (INHALATION) 0.5 MG/2 ML NEB NEB SCH ×2 (11:08→19:21)
[2018-10-15 13:00] VITALS: BP 134/74
--- NOTE | 2018-10-15 14:00 | NUR ---
Food Delivery Patient is having food delivered at this time brought to room by outside company. Boyfriend is sleeping in bed next to patient.
[2018-10-15 17:00] VITALS: BP 131/73
[2018-10-15 18:25] VITALS: BP 131/73
--- NOTE | 2018-10-15 18:59 | NUR ---
Respiratory note: TX GIVEN WITHOUT INCIDENCE. PT REQUESTING TO SPEAK WITH CHARGE NURSE REGARDING 1830 MEDS. CHARGE NURSE NOTIFIED.
--- NOTE | 2018-10-15 18:59 | NUR ---
Re: Scheduled 1829 Meds Gave Solumedrol, according to 1829 orders. However, patient is now stating that she wants benadryl as well as toradol (which has been discontinued). Patient is refusing to sign discharge papers and will not let the midline be removed.
--- NOTE | 2018-10-15 19:00 | NUR ---
Re: Discharge Patient is refusing to be discharged without receiving all of her medications that were scheduled post discharge orders. Educated patient that she is discharged and that medications would only be given as ordered. Patient wants to speak with Charge Nurse at this time, because they "know her very well." Will notify charge nurse. Discharge is complete. Paperwork is not signed. Will endorse to the awake overnight monitor RN.
[2018-10-15] MEDS ORDERED: KETOROLAC TROMETH 30 MG/ML 1ML VIAL IV ONE (19:45)
--- NOTE | 2018-10-15 19:45 | NUR ---
Opening Shift Note Assumed care of patient, awake and alert, sitting up at bedside. On room air with even and unlabored respirations, no S/S of distress/SOB or pain. Patient ambulatory with steady gait. Bed low locked position with side rails up x 2 and call light within reach. Instructed on POC and to call for assist PRN, will continue to monitor for changes Q1hr and PRN.
--- NOTE | 2018-10-15 20:00 | NUR ---
Midline removal Midline to right upper arm DC'd with clean sterile technique, catheter fully intact. Pressure dressing applied to site. Patient tolerated well.
--- NOTE | 2018-10-15 20:40 | NUR ---
Discharge instructions given as ordered. Encourage to follow up with PMD as instructed. All questions and concerns addressed. Patient verbalized understanding. Medication reconciliation form completed and copy given to patient. Telemetry unit returned to ICU. Patient taken to vehicle via wheelchair with all personal belongings, accompanied by staff. No distress noted at time of departure.
== END 2018-10-15 20:30 | disposition home or self-care (01) | DRG 141 ==
LOC: EDBD 15:31 → ER 15:40 → TELE-WESTW 23:52
PROVIDERS: ADMIT Nurse Practitioner Family; ATTEND Internal Medicine Pulmonary Disease
DX: J45.901 Unspecified asthma with (acute) exacerbation (principal); F41.9 Anxiety disorder, unspecified; J20.9 Acute bronchitis, unspecified; R07.89 Other chest pain; Z80.41 Family history of malignant neoplasm of ovary; Z80.3 Family history of malignant neoplasm of breast; Z80.1 Family history of malignant neoplasm of trachea, bronchus and lung; Z80.8 Family history of malignant neoplasm of other organs or systems; Z81.8 Family history of other mental and behavioral disorders; Z82.0 Family history of epilepsy and other diseases of the nervous system; Z82.3 Family history of stroke; Z82.49 Family history of ischemic heart disease and other diseases of the circulatory system; Z82.5 Family history of asthma and other chronic lower respiratory diseases; Z82.62 Family history of osteoporosis; Z83.3 Family history of diabetes mellitus; Z91.012 Allergy to eggs; Z88.8 Allergy status to other drugs, medicaments and biological substances; Z91.018 Allergy to other foods
CPT/HCPCS: 36415; 71045; 80053; 81001; 81025; 85025; 87081; 94010; 94640; G0378; J1885; J2405

== ENCOUNTER 2018-11-06 13:08 | Emergency (ER) | payer OTHER ==
[~2018-11-06] VITALS: Ht 167.6 cm; Wt 80.7 kg
[~2018-11-06 13:08] MED LIST changes: -PRE5T PO
[2018-11-06 13:19] VITALS: BP 120/82
== END 2018-11-06 17:34 | disposition left against medical advice (07) ==
LOC: EDBD 13:08 → ER 13:11
DX: R06.02 Shortness of breath (principal); Z53.21 Procedure and treatment not carried out due to patient leaving prior to being seen by health care provider
CPT/HCPCS: 71046; 93005

== ENCOUNTER 2018-12-01 09:27 | Emergency (ER) | payer OTHER ==
[~2018-12-01] VITALS: Ht 167.6 cm; Wt 81.6 kg
[2018-12-01 10:15] LABS: Basophils # (auto) 0 uL; Basophils % (auto) 0.2 % (0.0-2.0); Eosinophils # (auto) 0.9 uL; Eosinophils % (auto) 10.6 % (0.0-7.0); Hematocrit 44.1 % (36.0-46.0); Hemoglobin 14.8 g/dL (12.2-16.2); Lymphocytes # (auto) 2.7 uL; Lymphocytes % (auto) 31.8 % (10.0-50.0); Mean Corpuscular Hemoglobin 30.9 pg (28.0-32.0); Mean Corpuscular Hgb Conc. 33.5 g/dL (32.0-36.0); Mean Corpuscular Volume 92.1 fL (80.0-100.0); Monocytes # (auto) 0.7 uL; Monocytes % (auto) 7.7 % (0.0-12.0); Neutrophils # (auto) 4.2 uL; Neutrophils % (auto) 49.7 % (37.0-80.0); Platelet Count (auto) 212 10^3/uL (140-450); Red Blood Cells 4.79 10^6/uL (4.0-5.20); Red Cell Distribution Width 14.7 % (11.8-14.3); White Blood Cell 8.5 10^3/uL (4.4-10.8)
[2018-12-01] MEDS ORDERED: cefTRIAXone 1GM/50ML D5W 50 ML IV ONE (10:15)
[2018-12-01] MEDS ORDERED: IPRATROPIUM BROM 0.5 MG/2.5ML INH SOL NEB ONE (10:15)
[2018-12-01] MEDS ORDERED: methylPREDNISolone SOD SUCC 125 MG/2 ML VL IV ONE (10:15)
[2018-12-01] MEDS ORDERED: ALBUTEROL SULF 2.5 MG/0.5ML(0.5%) NEB SOLN NEB ONE ×2 (10:15→12:30)
[2018-12-01] MEDS ORDERED: ONDANSETRON HCL 4 MG/2 ML VIAL IV ONE (10:30)
[2018-12-01] MEDS ORDERED: MORPHINE SULFATE 4 MG/ML SYR/VIAL IV ONE (10:30)
[2018-12-01 10:43] LABS: Albumin 3.6 g/dL (3.4-5.0); Calcium 8.8 mg/dL (8.5-10.1); Potassium 3.6 mmol/L (3.5-5.1)
[2018-12-01] MEDS ORDERED: diphenhdrAMINE HCL 50 MG/1 ML VL IV ONE (10:45)
[2018-12-01 10:47] LABS: BUN/Creatinine Ratio 19.2; Bilirubin, Total 0.6 mg/dL (0.2-1.0); Total Protein 6.8 g/dL (6.4-8.2)
[2018-12-01 12:06] LABS: Urine Bacteria NONE SEEN /hpf (None Seen); Urine Blood Negative /uL (Negative); Urine WBC 3 /hpf (0 - 5)
[2018-12-01 13:05] VITALS: BP 108/70
== END 2018-12-01 13:51 | disposition home or self-care (01) ==
LOC: EDBD 09:27 → ER 09:40
DX: J45.901 Unspecified asthma with (acute) exacerbation (principal); F12.90 Cannabis use, unspecified, uncomplicated
CPT/HCPCS: 36415; 71045; 80053; 81001; 81025; 85025; 94640; 96365; 96375; 99284; J0696; J1200; J2270; J2405; J2930; J7030; J7611; J7644

== ENCOUNTER 2019-03-18 10:04 | Emergency (ER) | payer OTHER ==
[~2019-03-18] VITALS: Ht 167.6 cm; Wt 65.8 kg
[2019-03-18] MEDS ORDERED: ALBUTEROL SULF 2.5 MG/0.5ML(0.5%) NEB SOLN NEB ONE (11:00)
[2019-03-18] MEDS ORDERED: methylPREDNISolone SOD SUCC 125 MG/2 ML VL IV ONE (11:00)
[2019-03-18] MEDS ORDERED: IPRATROPIUM BROM 0.5 MG/2.5ML INH SOL NEB ONE (11:00)
[2019-03-18] MEDS ORDERED: LORazepam 2MG/ML-1ML VIAL IV ONE (11:45)
[2019-03-18 11:54] VITALS: BP 125/80
[2019-03-18 12:06] LABS: Basophils # (auto) 0 uL; Basophils % (auto) 0.1 % (0.0-2.0); Eosinophils # (auto) 0.8 uL; Eosinophils % (auto) 9.5 % (0.0-7.0); Hematocrit 42.5 % (36.0-46.0); Hemoglobin 14.2 g/dL (12.2-16.2); Lymphocytes # (auto) 1.7 uL; Lymphocytes % (auto) 21.2 % (10.0-50.0); Mean Corpuscular Hemoglobin 31.1 pg (28.0-32.0); Mean Corpuscular Hgb Conc. 33.5 g/dL (32.0-36.0); Mean Corpuscular Volume 92.7 fL (80.0-100.0); Monocytes # (auto) 0.7 uL; Monocytes % (auto) 8.2 % (0.0-12.0); Neutrophils # (auto) 4.9 uL; Nucleated Red Blood Cells % 0.1 %; Platelet Count (auto) 207 10^3/uL (140-450); Red Blood Cells 4.58 10^6/uL (4.0-5.20)
[2019-03-18 12:15] LABS: Albumin 3.9 g/dL (3.4-5.0); Calcium 8.3 mg/dL (8.5-10.1); Potassium 3.3 mmol/L (3.5-5.1)
[2019-03-18 12:17] LABS: BUN/Creatinine Ratio 15.2
[2019-03-18 12:20] LABS: Bilirubin, Total 0.7 mg/dL (0.2-1.0); Total Protein 6.7 g/dL (6.4-8.2)
== END 2019-03-18 13:33 | disposition home or self-care (01) ==
LOC: ER 10:04 → EDBD 10:04 → ER 13:33
DX: J45.901 Unspecified asthma with (acute) exacerbation (principal); F41.9 Anxiety disorder, unspecified
CPT/HCPCS: 36415; 71046; 80053; 85025; 94640; 96374; 96375; 99284; J2060; J2930; J7611

== ENCOUNTER 2019-05-02 14:58 | Emergency (ER) | payer OTHER ==
[~2019-05-02] VITALS: Ht 167.6 cm; Wt 72.6 kg
[2019-05-02 15:45] LABS: Basophils # (auto) 0.1 uL; Basophils % (auto) 0.5 % (0.0-2.0); Eosinophils # (auto) 0.2 uL; Eosinophils % (auto) 1.2 % (0.0-7.0); Hematocrit 45.9 % (36.0-46.0); Hemoglobin 15.2 g/dL (12.2-16.2); Lymphocytes # (auto) 1.2 uL; Lymphocytes % (auto) 9.4 % (10.0-50.0); Mean Corpuscular Hemoglobin 31.3 pg (28.0-32.0); Mean Corpuscular Volume 94.7 fL (80.0-100.0); Monocytes % (auto) 8.1 % (0.0-12.0); Neutrophils # (auto) 10.2 uL; Neutrophils % (auto) 80.8 % (37.0-80.0); Nucleated Red Blood Cells % 0.1 %; Platelet Count (auto) 270 10^3/uL (140-450); Red Blood Cells 4.85 10^6/uL (4.0-5.20); White Blood Cell 12.6 10^3/uL (4.4-10.8)
[2019-05-02 16:00] LABS: Alanine Aminotransferase 15 U/L (13-56); Albumin 4.4 g/dL (3.4-5.0); Anion Gap 12 (5-15); Aspartate Aminotransferase 13 U/L (15-37); BUN/Creatinine Ratio 15.9; Blood Urea Nitrogen 14 mg/dL (7-18); Calcium 8.6 mg/dL (8.5-10.1); Carbon Dioxide 20 mmol/L (21-32); Chloride 107 mmol/L (98-107); GFR African American 102 mL/min; GFR Non-African American 85 mL/min; Glucose 85 mg/dL (74-106); Sodium 139 mmol/L (136-145)
[2019-05-02 16:03] LABS: Alkaline Phosphatase 60 U/L (45-117); Bilirubin, Total 0.5 mg/dL (0.2-1.0); Total Protein 7.7 g/dL (6.4-8.2)
[2019-05-02] MEDS ORDERED: ONDANSETRON HCL 4 MG/2 ML VIAL IV ONE ×2 (16:30→18:30)
[2019-05-02] MEDS ORDERED: HYDROmorphone HCL 2 MG/ML VL IV ONE ×2 (16:30→18:15)
[2019-05-02 16:38] LABS: Urine Bacteria FEW /hpf (None Seen); Urine Blood 2+ /uL (Negative); Urine Mucus FEW (None Seen); Urine Specific Gravity 1.023 (1.001-1.035); Urine WBC 5 /hpf (0 - 5)
[2019-05-02 16:42] LABS: Magnesium 1.9 mg/dL (1.6-2.6)
[2019-05-02 18:04] VITALS: BP 124/73
== END 2019-05-02 19:04 | disposition home or self-care (01) ==
LOC: ER 14:58 → EDBD 14:58 → ER 19:04
DX: R10.84 Generalized abdominal pain (principal); R11.2 Nausea with vomiting, unspecified; R19.7 Diarrhea, unspecified; J45.909 Unspecified asthma, uncomplicated; Z91.012 Allergy to eggs; Z91.010 Allergy to peanuts
CPT/HCPCS: 36415; 74176; 80053; 81001; 82150; 83690; 83735; 84702; 85025; 96374; 96375; 96376; 99284; J1170; J2405

== ENCOUNTER 2019-07-18 17:29 | Emergency (ER) | payer OTHER ==
[~2019-07-18] VITALS: Ht 167.6 cm; Wt 74.4 kg
[2019-07-18] MEDS ORDERED: ALBUTEROL SULF 2.5 MG/0.5ML(0.5%) NEB SOLN NEB ONE (18:00)
[2019-07-18 23:16] VITALS: BP 127/83
[2019-07-18] MEDS ORDERED: cefTRIAXone SOD 1,000 MG VL IM ONE (23:45)
[2019-07-18] MEDS ORDERED: HYDROcodone-ACET 7.5/325MG TAB PO ONE (23:45)
== END 2019-07-19 01:06 | disposition home or self-care (01) ==
LOC: ER 17:29 → EDBD 17:29 → ER 07-19 01:06
DX: H10.33 Unspecified acute conjunctivitis, bilateral (principal); R06.02 Shortness of breath; J45.909 Unspecified asthma, uncomplicated; Z91.012 Allergy to eggs; Z91.010 Allergy to peanuts
CPT/HCPCS: 71045; 87804; 94640; 96372; 99284; J0696

== ENCOUNTER 2020-07-12 08:25 | Inpatient (IN) | payer OTHER ==
[~2020-07-12] VITALS: Ht 167.6 cm; Wt 82.1 kg
[~2020-07-12 08:25] MED LIST changes: -ALBU1SYP PO; +ALBU2SYP10 PO; -MONT5CHW17 PO; +MONT5CHW23 PO
[2020-07-12] MEDS ORDERED: ALBUTEROL SULF 2.5 MG/0.5ML(0.5%) NEB SOLN NEB ONE (08:45)
[2020-07-12] MEDS ORDERED: SODIUM CHLORIDE 0.9% 1,000 ML IV ONE (08:45)
[2020-07-12] MEDS ORDERED: cefTRIAXone 1GM/50ML D5W 50 ML IV ONE ×2 (08:45→11:45)
[2020-07-12] MEDS ORDERED: methylPREDNISolone SOD SUCC 125 MG/2 ML VL IV ONE (08:45)
[2020-07-12] MEDS ORDERED: IPRATROPIUM BROM 0.5 MG/2.5ML INH SOL NEB ONE (08:45)
[2020-07-12] MEDS ORDERED: MAGNESIUM SULFATE 1GM/100ML 100 ML IV ONE (08:45)
[2020-07-12] MEDS ORDERED: ONDANSETRON HCL 4 MG/2 ML VIAL IV ONE (09:00)
[2020-07-12] MEDS ORDERED: MORPHINE SULFATE 4 MG/ML SYR/VIAL IV ONE (09:00)
[2020-07-12] MEDS ORDERED: ALBUTEROL SULF 2.5 MG/0.5ML(0.5%) NEB SOLN ONE (09:19)
[2020-07-12] MEDS ORDERED: LORazepam 2MG/ML-1ML VIAL IV ONE (09:45)
[2020-07-12 10:18] LABS: Albumin 3.9 g/dL (3.4-5.0); Calcium 8.9 mg/dL (8.5-10.1); Potassium 3.8 mmol/L (3.5-5.1)
[2020-07-12 10:22] LABS: Basophils # (auto) 0.1 10 ^3/uL (0-0.2); Basophils % (auto) 0.8 % (0.0-2.0); Eosinophils # (auto) 0.9 10 ^3/uL (0-0.8); Eosinophils % (auto) 9.8 % (0.0-7.0); Hematocrit 41.9 % (36.0-46.0); Hemoglobin 14.6 g/dL (12.2-16.2); Lymphocytes # (auto) 2.9 10 ^3/uL (0.4-5.4); Lymphocytes % (auto) 29.8 % (10.0-50.0); Mean Corpuscular Hemoglobin 32.7 pg (28.0-32.0); Mean Corpuscular Hgb Conc. 34.8 g/dL (32.0-36.0); Mean Corpuscular Volume 94.1 fL (80.0-100.0); Monocytes # (auto) 0.6 10 ^3/uL (0-1.3); Monocytes % (auto) 6.5 % (0.0-12.0); Neutrophils # (auto) 5.1 10 ^3/uL (1.6-8.6); Neutrophils % (auto) 53.1 % (37.0-80.0); Nucleated Red Blood Cells % 0.2 %; Platelet Count (auto) 264 10^3/uL (140-450); Red Blood Cells 4.45 10^6/uL (4.0-5.20); Red Cell Distribution Width 13.2 % (11.8-14.3); White Blood Cell 9.6 10^3/uL (4.4-10.8)
[2020-07-12 10:26] LABS: BUN/Creatinine Ratio 13.3; Bilirubin, Total 0.2 mg/dL (0.2-1.0)
[2020-07-12] MEDS ORDERED: ACETAMINOPHEN 500 MG TAB PO PRN (11:15)
[2020-07-12] MEDS ORDERED: THROAT LOZENGES(CEPASTAT) MT PRN (11:15)
[2020-07-12] MEDS: SODIUM CHLORIDE 0.9% 1,000 ML IV SCH (11:40)
[2020-07-12] MEDS ORDERED: AZITHROMYCIN 500MG/ 250ML 250 ML IV ONE (11:45)
[2020-07-12] MEDS ORDERED: FAMOTIDINE 20 MG TAB PO ONE (11:45)
[2020-07-12] MEDS ORDERED: MONTELUKAST SODIUM 10 MG TAB PO ONE (11:45)
[2020-07-12] MEDS ORDERED: methylPREDNISolone SOD SUCC 40 MG/ML VL IV ONE (11:45)
[2020-07-12 12:18] VITALS: BP 117/84
[2020-07-12] MEDS ORDERED: diphenhdrAMINE HCL 50 MG/1 ML VL ONE (12:55)
[2020-07-12] MEDS ORDERED: diphenhdrAMINE HCL 50 MG/1 ML VL IV ONE (13:30)
[2020-07-12] MEDS: MORPHINE SULF INJ 2 MG/ML SYRINGE 1ML IV PRN (13:50)
[2020-07-12 13:59] LABS: Urine Bacteria NONE SEEN /hpf (None Seen); Urine Blood Negative /uL (Negative); Urine Specific Gravity 1.016 (1.001-1.035); Urine WBC <1 /hpf (0 - 5)
[2020-07-12] MEDS: ALBUTEROL SULF 2.5 MG/0.5ML(0.5%) NEB SOLN NEB SCH ×3 (14:03→22:19)
[2020-07-12] MEDS: HYDROcodone-ACET 5/325MG TAB PO PRN ×2 (16:52→23:35)
[2020-07-12] MEDS: diphenhdrAMINE HCL 50 MG/1 ML VL IV PRN (21:22)
[2020-07-12] MEDS: ALPRAZolam 0.25 MG TAB PO PRN (21:23)
[2020-07-12] MEDS: methylPREDNISolone SOD SUCC 40 MG/ML VL IV SCH (22:06)
[2020-07-12] MEDS: BUDESONIDE (INHALATION) 0.5 MG/2 ML NEB NEB SCH (22:20)
[2020-07-13] MEDS: ALPRAZolam 0.25 MG TAB PO PRN ×3 (00:52→19:01)
[2020-07-13] MEDS: diphenhdrAMINE HCL 50 MG/1 ML VL IV PRN ×4 (00:53→20:18)
[2020-07-13] MEDS: ONDANSETRON HCL 4 MG/2 ML VIAL IV PRN ×6 (01:31→23:11)
[2020-07-13] MEDS: MORPHINE SULF INJ 2 MG/ML SYRINGE 1ML IV PRN ×6 (01:31→23:11)
[2020-07-13] MEDS: ALBUTEROL SULF 2.5 MG/0.5ML(0.5%) NEB SOLN NEB SCH ×6 (02:10→22:19)
[2020-07-13] MEDS: SODIUM CHLORIDE 0.9% 1,000 ML IV SCH ×3 (02:48→19:01)
[2020-07-13] MEDS ORDERED: DUPI200I SC (03:07)
[2020-07-13 05:00] VITALS: BP 116/75
[2020-07-13] MEDS: BUDESONIDE (INHALATION) 0.5 MG/2 ML NEB NEB SCH ×2 (07:20→18:50)
[2020-07-13 09:00] VITALS: BP 117/56
[2020-07-13] MEDS ORDERED: cefTRIAXone 1GM/50ML D5W 50 ML IV SCH (09:00)
[2020-07-13] MEDS: methylPREDNISolone SOD SUCC 40 MG/ML VL IV SCH ×2 (09:13→22:13)
[2020-07-13] MEDS: guaiFENesin-CODEINE Liq 5 ML UD PO PRN (09:14)
[2020-07-13] MEDS: MONTELUKAST SODIUM 10 MG TAB PO SCH (09:14)
[2020-07-13] MEDS ORDERED: FAMOTIDINE 20 MG TAB PO SCH (10:00)
[2020-07-13] MEDS: AZITHROMYCIN 500MG/ 250ML 250 ML IV SCH (10:23)
[2020-07-13 13:00] VITALS: BP 109/57
[2020-07-13 16:32] VITALS: BP 112/62
[2020-07-13 20:00] VITALS: BP 128/82
[2020-07-13 22:00] VITALS: BP 128/82
[2020-07-14] MEDS: diphenhdrAMINE HCL 50 MG/1 ML VL IV PRN ×3 (02:05→21:28)
[2020-07-14] MEDS: guaiFENesin-CODEINE Liq 5 ML UD PO PRN ×2 (02:10→11:19)
[2020-07-14] MEDS: ALBUTEROL SULF 2.5 MG/0.5ML(0.5%) NEB SOLN NEB SCH ×6 (02:26→22:05)
[2020-07-14] MEDS: SODIUM CHLORIDE 0.9% 1,000 ML IV SCH (03:19)
[2020-07-14] MEDS: MORPHINE SULF INJ 2 MG/ML SYRINGE 1ML IV PRN ×5 (03:20→23:19)
[2020-07-14] MEDS: ALPRAZolam 0.25 MG TAB PO PRN (03:20)
[2020-07-14] MEDS: ONDANSETRON HCL 4 MG/2 ML VIAL IV PRN ×5 (03:20→23:18)
[2020-07-14] MEDS: BUDESONIDE (INHALATION) 0.5 MG/2 ML NEB NEB SCH ×2 (07:30→18:16)
[2020-07-14 08:00] VITALS: BP 127/73
[2020-07-14 09:00] VITALS: BP 127/73
[2020-07-14] MEDS: MONTELUKAST SODIUM 10 MG TAB PO SCH (09:01)
[2020-07-14] MEDS: methylPREDNISolone SOD SUCC 40 MG/ML VL IV SCH ×2 (09:01→21:17)
[2020-07-14] MEDS: PANTOPRAZOLE 40 MG TAB PO SCH (09:02)
[2020-07-14] MEDS ORDERED: ZOLPIDEM TARTRATE 5 MG TAB PO PRN (10:15)
[2020-07-14] MEDS: AZITHROMYCIN 500MG/ 250ML 250 ML IV SCH (11:18)
[2020-07-14 11:38] LABS: Basophils # (auto) 0 10 ^3/uL (0-0.2); Basophils % (auto) 0.1 % (0.0-2.0); Eosinophils # (auto) 0 10 ^3/uL (0-0.8); Hematocrit 40.4 % (36.0-46.0); Hemoglobin 13.6 g/dL (12.2-16.2); Lymphocytes # (auto) 1.2 10 ^3/uL (0.4-5.4); Lymphocytes % (auto) 6.9 % (10.0-50.0); Mean Corpuscular Hemoglobin 32.1 pg (28.0-32.0); Mean Corpuscular Hgb Conc. 33.7 g/dL (32.0-36.0); Mean Corpuscular Volume 95.2 fL (80.0-100.0); Monocytes # (auto) 0.8 10 ^3/uL (0-1.3); Monocytes % (auto) 4.5 % (0.0-12.0); Neutrophils # (auto) 15.5 10 ^3/uL (1.6-8.6); Neutrophils % (auto) 88.5 % (37.0-80.0); Nucleated Red Blood Cells % 0.1 %; Platelet Count (auto) 264 10^3/uL (140-450); Red Blood Cells 4.24 10^6/uL (4.0-5.20); Red Cell Distribution Width 13.7 % (11.8-14.3); White Blood Cell 17.5 10^3/uL (4.4-10.8)
[2020-07-14 11:55] LABS: Albumin 3.9 g/dL (3.4-5.0); Anion Gap 5 (5-15); Blood Urea Nitrogen 12 mg/dL (7-18); Calcium 8.7 mg/dL (8.5-10.1); Carbon Dioxide 25 mmol/L (21-32); Chloride 110 mmol/L (98-107); Glucose 101 mg/dL (74-106); Sodium 140 mmol/L (136-145)
[2020-07-14 11:59] LABS: Alanine Aminotransferase 15 U/L (13-56); Alkaline Phosphatase 56 U/L (45-117); Aspartate Aminotransferase < 3 U/L (15-37); BUN/Creatinine Ratio 14.8; Bilirubin, Total 0.2 mg/dL (0.2-1.0); GFR African American 112 mL/min; GFR Non-African American 92 mL/min; Total Protein 7.2 g/dL (6.4-8.2)
[2020-07-14 13:00] VITALS: BP 117/62
[2020-07-14 17:00] VITALS: BP 112/62
[2020-07-14 22:00] VITALS: BP 114/66
[2020-07-15] MEDS: traZODone HCL 50 MG TAB PO PRN (00:15)
[2020-07-15] MEDS: ALBUTEROL SULF 2.5 MG/0.5ML(0.5%) NEB SOLN NEB SCH ×6 (02:04→23:35)
[2020-07-15] MEDS: ONDANSETRON HCL 4 MG/2 ML VIAL IV PRN ×4 (03:54→20:14)
[2020-07-15] MEDS: diphenhdrAMINE HCL 50 MG/1 ML VL IV PRN ×3 (03:54→17:36)
[2020-07-15 05:00] VITALS: BP 112/71
[2020-07-15] MEDS: MORPHINE SULF INJ 2 MG/ML SYRINGE 1ML IV PRN ×4 (05:21→20:14)
[2020-07-15 05:59] LABS: Basophils # (auto) 0 10 ^3/uL (0-0.2); Eosinophils # (auto) 0 10 ^3/uL (0-0.8); Hematocrit 38.4 % (36.0-46.0); Lymphocytes % (auto) 8.5 % (10.0-50.0); Mean Corpuscular Hemoglobin 32.2 pg (28.0-32.0); Mean Corpuscular Hgb Conc. 33.9 g/dL (32.0-36.0); Mean Corpuscular Volume 95.1 fL (80.0-100.0); Monocytes # (auto) 0.5 10 ^3/uL (0-1.3); Neutrophils # (auto) 10.5 10 ^3/uL (1.6-8.6); Neutrophils % (auto) 87.5 % (37.0-80.0); Platelet Count (auto) 226 10^3/uL (140-450); Red Blood Cells 4.04 10^6/uL (4.0-5.20); Red Cell Distribution Width 13.6 % (11.8-14.3); White Blood Cell 12.1 10^3/uL (4.4-10.8)
[2020-07-15 06:15] LABS: BUN/Creatinine Ratio 16.9; Calcium 8.5 mg/dL (8.5-10.1); Potassium 4.4 mmol/L (3.5-5.1)
[2020-07-15] MEDS: BUDESONIDE (INHALATION) 0.5 MG/2 ML NEB NEB SCH ×2 (06:58→23:35)
[2020-07-15 09:00] VITALS: BP 119/53
[2020-07-15] MEDS ORDERED: OSELTAMIVIR 75 MG CAP PO SCH (10:00)
[2020-07-15] MEDS: PANTOPRAZOLE 40 MG TAB PO SCH (10:26)
[2020-07-15] MEDS: methylPREDNISolone SOD SUCC 40 MG/ML VL IV SCH ×2 (10:26→21:38)
[2020-07-15] MEDS: MONTELUKAST SODIUM 10 MG TAB PO SCH (10:26)
[2020-07-15] MEDS: AZITHROMYCIN 500MG/ 250ML 250 ML IV SCH (10:26)
[2020-07-15] MEDS: OSELTAMIVIR 75 MG CAP PO SCH ×2 (10:27→21:38)
[2020-07-15] MEDS: SERTRALINE HCL 50 MG TAB PO SCH (10:27)
[2020-07-15] MEDS: ALPRAZolam 0.25 MG TAB PO PRN (11:51)
[2020-07-15 12:42] VITALS: BP 114/69
[2020-07-15 17:00] VITALS: BP 112/63
[2020-07-15 22:00] VITALS: BP 106/70
[2020-07-16] MEDS: MORPHINE SULF INJ 2 MG/ML SYRINGE 1ML IV PRN ×3 (00:04→10:40)
[2020-07-16] MEDS: diphenhdrAMINE HCL 50 MG/1 ML VL IV PRN ×3 (00:04→12:22)
[2020-07-16] MEDS: ONDANSETRON HCL 4 MG/2 ML VIAL IV PRN ×3 (00:04→10:39)
[2020-07-16] MEDS: traZODone HCL 50 MG TAB PO PRN (00:30)
[2020-07-16 05:00] VITALS: BP 105/59
[2020-07-16] MEDS: ALBUTEROL SULF 2.5 MG/0.5ML(0.5%) NEB SOLN NEB SCH ×2 (06:05→10:15)
[2020-07-16] MEDS: BUDESONIDE (INHALATION) 0.5 MG/2 ML NEB NEB SCH (06:05)
[2020-07-16 06:23] LABS: Basophils # (auto) 0 10 ^3/uL (0-0.2); Basophils % (auto) 0.2 % (0.0-2.0); Eosinophils # (auto) 0 10 ^3/uL (0-0.8); Hematocrit 39.6 % (36.0-46.0); Hemoglobin 13.3 g/dL (12.2-16.2); Lymphocytes # (auto) 1.1 10 ^3/uL (0.4-5.4); Lymphocytes % (auto) 9.1 % (10.0-50.0); Mean Corpuscular Hemoglobin 31.9 pg (28.0-32.0); Mean Corpuscular Hgb Conc. 33.6 g/dL (32.0-36.0); Mean Corpuscular Volume 95.1 fL (80.0-100.0); Monocytes # (auto) 0.4 10 ^3/uL (0-1.3); Monocytes % (auto) 3.5 % (0.0-12.0); Neutrophils # (auto) 10.6 10 ^3/uL (1.6-8.6); Neutrophils % (auto) 87.2 % (37.0-80.0); Platelet Count (auto) 223 10^3/uL (140-450); Red Blood Cells 4.16 10^6/uL (4.0-5.20); Red Cell Distribution Width 13.3 % (11.8-14.3); White Blood Cell 12.1 10^3/uL (4.4-10.8)
[2020-07-16 06:46] LABS: Potassium 4.6 mmol/L (3.5-5.1)
[2020-07-16 07:03] LABS: BUN/Creatinine Ratio 22.9; Calcium 9.2 mg/dL (8.5-10.1)
[2020-07-16 08:35] VITALS: BP 111/61
[2020-07-16] MEDS: MONTELUKAST SODIUM 10 MG TAB PO SCH (10:14)
[2020-07-16] MEDS: OSELTAMIVIR 75 MG CAP PO SCH (10:14)
[2020-07-16] MEDS: methylPREDNISolone SOD SUCC 40 MG/ML VL IV SCH (10:14)
[2020-07-16] MEDS: AZITHROMYCIN 500MG/ 250ML 250 ML IV SCH (10:14)
[2020-07-16] MEDS: PANTOPRAZOLE 40 MG TAB PO SCH (10:14)
[2020-07-16] MEDS: SERTRALINE HCL 50 MG TAB PO SCH (10:15)
[2020-07-16] MEDS: ALPRAZolam 0.25 MG TAB PO PRN (10:15)
[2020-07-16 12:19] VITALS: BP 112/70
[2020-07-16] MEDS ORDERED: PRED1TAB PO (12:27)
[2020-07-16] MEDS ORDERED: TAMIFLU PO (12:27)
[2020-07-16] MEDS ORDERED: PRED20TA2 PO (12:28)
[2020-07-16] MEDS ORDERED: ONDA-144 PO (12:30)
== END 2020-07-16 14:10 | disposition home or self-care (01) | DRG 133 ==
LOC: EDBD 08:25 → ER 08:25 → OVERFLOW 08:26 → EAST 07-13 00:59
PROVIDERS: ADMIT Nurse Practitioner Acute Care; ATTEND Internal Medicine Pulmonary Disease
DX: J96.01 Acute respiratory failure with hypoxia (principal); J20.9 Acute bronchitis, unspecified; J45.902 Unspecified asthma with status asthmaticus; G89.29 Other chronic pain; F43.20 Adjustment disorder, unspecified; F41.9 Anxiety disorder, unspecified; F32.9 Major depressive disorder, single episode, unspecified; Z20.822 Contact with and (suspected) exposure to COVID-19; J10.1 Influenza due to other identified influenza virus with other respiratory manifestations; Z63.9 Problem related to primary support group, unspecified; Z80.0 Family history of malignant neoplasm of digestive organs; Z80.1 Family history of malignant neoplasm of trachea, bronchus and lung; Z80.3 Family history of malignant neoplasm of breast; Z80.41 Family history of malignant neoplasm of ovary; Z80.8 Family history of malignant neoplasm of other organs or systems; Z81.8 Family history of other mental and behavioral disorders; Z82.0 Family history of epilepsy and other diseases of the nervous system; Z82.3 Family history of stroke; Z82.49 Family history of ischemic heart disease and other diseases of the circulatory system; Z82.5 Family history of asthma and other chronic lower respiratory diseases; Z82.62 Family history of osteoporosis; Z83.3 Family history of diabetes mellitus
CPT/HCPCS: 36415; 71045; 80048; 80053; 81001; 84443; 85025; 87070; 87077; 87186; 87205; 87426; 87804; 93005; 94640; 96365; 96368; 96375; G0378; J0696; J2405

== ENCOUNTER 2020-08-11 11:14 | Emergency (ER) | payer OTHER ==
[~2020-08-11] VITALS: Ht 167.6 cm; Wt 77.1 kg
[~2020-08-11 11:14] MED LIST changes: +DUPI200I SC; +ONDA-144 PO; +PRED20TA2 PO; +TAMIFLU PO
[2020-08-11 12:25] LABS: Urine Bacteria NONE SEEN /hpf (None Seen); Urine Blood Negative /uL (Negative); Urine Mucus FEW (None Seen); Urine Specific Gravity 1.018 (1.001-1.035); Urine WBC <1 /hpf (0 - 5)
[2020-08-11 12:36] LABS: Basophils # (auto) 0.1 10 ^3/uL (0-0.2); Eosinophils # (auto) 0.2 10 ^3/uL (0-0.8); Eosinophils % (auto) 1.8 % (0.0-7.0); Hematocrit 45.4 % (36.0-46.0); Hemoglobin 15.3 g/dL (12.2-16.2); Lymphocytes # (auto) 1.6 10 ^3/uL (0.4-5.4); Lymphocytes % (auto) 16.2 % (10.0-50.0); Mean Corpuscular Hemoglobin 31.9 pg (28.0-32.0); Mean Corpuscular Hgb Conc. 33.7 g/dL (32.0-36.0); Mean Corpuscular Volume 94.8 fL (80.0-100.0); Monocytes # (auto) 0.5 10 ^3/uL (0-1.3); Monocytes % (auto) 5.1 % (0.0-12.0); Neutrophils # (auto) 7.3 10 ^3/uL (1.6-8.6); Neutrophils % (auto) 75.9 % (37.0-80.0); Platelet Count (auto) 335 10^3/uL (140-450); Red Blood Cells 4.79 10^6/uL (4.0-5.20); Red Cell Distribution Width 13.9 % (11.8-14.3); White Blood Cell 9.6 10^3/uL (4.4-10.8)
[2020-08-11 12:39] LABS: Albumin 4.4 g/dL (3.4-5.0); Anion Gap 11 (5-15); Blood Urea Nitrogen 11 mg/dL (7-18); Calcium 8.9 mg/dL (8.5-10.1); Carbon Dioxide 24 mmol/L (21-32); Chloride 107 mmol/L (98-107); Glucose 94 mg/dL (74-106); Magnesium 2.3 mg/dL (1.6-2.6); Sodium 142 mmol/L (136-145)
[2020-08-11 12:41] LABS: Alanine Aminotransferase 18 U/L (13-56); Aspartate Aminotransferase 8 U/L (15-37); BUN/Creatinine Ratio 15.5; GFR African American 130 mL/min; GFR Non-African American 107 mL/min
[2020-08-11 12:46] LABS: Alkaline Phosphatase 71 U/L (45-117); Bilirubin, Total 0.5 mg/dL (0.2-1.0); Total Protein 7.8 g/dL (6.4-8.2)
[2020-08-11] MEDS ORDERED: methylPREDNISolone SOD SUCC 125 MG/2 ML VL IV ONE (13:15)
[2020-08-11] MEDS ORDERED: ALBUTEROL SULF 2.5 MG/0.5ML(0.5%) NEB SOLN NEB ONE (13:15)
[2020-08-11] MEDS ORDERED: IPRATROPIUM BROM 0.5 MG/2.5ML INH SOL NEB ONE (13:15)
[2020-08-11] MEDS ORDERED: LORazepam 2MG/ML-1ML VIAL IV ONE (13:30)
[2020-08-11] MEDS ORDERED: diphenhdrAMINE HCL 50 MG/1 ML VL IV ONE (15:00)
[2020-08-11 16:00] VITALS: BP 115/79
== END 2020-08-11 16:39 | disposition home or self-care (01) ==
LOC: EDBD 11:14 → ER 11:14
DX: J45.909 Unspecified asthma, uncomplicated (principal); R10.84 Generalized abdominal pain; F41.9 Anxiety disorder, unspecified; F32.9 Major depressive disorder, single episode, unspecified; Z20.822 Contact with and (suspected) exposure to COVID-19; Z86.2 Personal history of diseases of the blood and blood-forming organs and certain disorders involving the immune mechanism
CPT/HCPCS: 36415; 71045; 74176; 80053; 81001; 81025; 83735; 84484; 85025; 87426; 94640; 96374; 96375; 99285; C9803; J1200; J2060; J2930; U0003

== ENCOUNTER 2020-10-06 09:35 | Inpatient (IN) | payer OTHER ==
[~2020-10-06] VITALS: Ht 167.6 cm; Wt 79.8 kg
[2020-10-06] MEDS ORDERED: methylPREDNISolone SOD SUCC 125 MG/2 ML VL IV ONE (10:45)
[2020-10-06] MEDS ORDERED: LORazepam 2MG/ML-1ML VIAL IV ONE ×3 (10:45→15:45)
[2020-10-06 10:48] LABS: Basophils # (auto) 0.1 10 ^3/uL (0-0.2); Basophils % (auto) 0.9 % (0.0-2.0); Eosinophils # (auto) 1.1 10 ^3/uL (0-0.8); Eosinophils % (auto) 13.9 % (0.0-7.0); Hematocrit 44.3 % (36.0-46.0); Hemoglobin 15.3 g/dL (12.2-16.2); Lymphocytes # (auto) 2.9 10 ^3/uL (0.4-5.4); Lymphocytes % (auto) 35.3 % (10.0-50.0); Mean Corpuscular Hemoglobin 32.8 pg (28.0-32.0); Mean Corpuscular Hgb Conc. 34.6 g/dL (32.0-36.0); Mean Corpuscular Volume 94.7 fL (80.0-100.0); Monocytes # (auto) 0.6 10 ^3/uL (0-1.3); Monocytes % (auto) 7.2 % (0.0-12.0); Neutrophils # (auto) 3.5 10 ^3/uL (1.6-8.6); Neutrophils % (auto) 42.7 % (37.0-80.0); Nucleated Red Blood Cells % 0.1 %; Platelet Count (auto) 231 10^3/uL (140-450); Red Blood Cells 4.68 10^6/uL (4.0-5.20); Red Cell Distribution Width 13.3 % (11.8-14.3); White Blood Cell 8.3 10^3/uL (4.4-10.8)
[2020-10-06 11:01] LABS: Albumin 3.9 g/dL (3.4-5.0); Calcium 8.7 mg/dL (8.5-10.1); Magnesium 2.3 mg/dL (1.6-2.6); Potassium 3.7 mmol/L (3.5-5.1)
[2020-10-06 11:05] LABS: BUN/Creatinine Ratio 17.1; Bilirubin, Total 0.3 mg/dL (0.2-1.0); Total Protein 7.1 g/dL (6.4-8.2)
[2020-10-06] MEDS ORDERED: diphenhdrAMINE HCL 50 MG/1 ML VL IV ONE (11:15)
[2020-10-06] MEDS ORDERED: ONDANSETRON HCL 4 MG/2 ML VIAL IV ONE (11:30)
[2020-10-06 12:28] LABS: Urine Bacteria FEW /hpf (None Seen); Urine Blood Negative /uL (Negative); Urine Specific Gravity 1.013 (1.001-1.035); Urine WBC <1 /hpf (0 - 5)
[2020-10-06] MEDS ORDERED: ALBUTEROL SULF 2.5 MG/0.5ML(0.5%) NEB SOLN NEB ONE (13:30)
[2020-10-06] MEDS ORDERED: ACETAMINOPHEN 325 MG TAB PO ONE (15:30)
[2020-10-06] MEDS ORDERED: DexAMETHasone SOD PHOS 4 MG/1ML SDV INJ IV ONE (16:00)
[2020-10-06] MEDS ORDERED: AZITHROMYCIN 500MG/ 250ML 250 ML IV ONE (16:00)
[2020-10-06] MEDS ORDERED: ACETAMINOPHEN 325 MG TAB PO PRN (16:30)
[2020-10-06 17:00] VITALS: BP 118/64
[2020-10-06] MEDS: BUDESONIDE (INHALATION) 0.5 MG/2 ML NEB NEB SCH (18:16)
[2020-10-06] MEDS: ALBUTEROL SULF 2.5 MG/0.5ML(0.5%) NEB SOLN NEB SCH (18:16)
[2020-10-06 19:20] VITALS: BP 118/62
[2020-10-06 22:00] VITALS: BP 118/62
[2020-10-06] MEDS: MORPHINE SULF INJ 2 MG/ML SYRINGE 1ML IV PRN (22:00)
[2020-10-06] MEDS: ONDANSETRON HCL 4 MG/2 ML VIAL IV PRN (22:00)
[2020-10-06] MEDS: methylPREDNISolone SOD SUCC 40 MG/ML VL IV SCH (22:00)
[2020-10-06] MEDS: diphenhdrAMINE HCL 50 MG/1 ML VL IV PRN (23:00)
[2020-10-06] MEDS: LORazepam 2MG/ML-1ML VIAL IV PRN (23:00)
[2020-10-07] MEDS: ALBUTEROL SULF 2.5 MG/0.5ML(0.5%) NEB SOLN NEB PRN (00:16)
[2020-10-07] MEDS ORDERED: MONT5CHW23 PO (03:02)
[2020-10-07] MEDS ORDERED: FLUT100I IN (03:02)
[2020-10-07] MEDS ORDERED: TIOT17SP IN (03:02)
[2020-10-07] MEDS ORDERED: ALBU108A5 IN (03:02)
[2020-10-07] MEDS ORDERED: DUPI200I SC (03:02)
[2020-10-07 05:00] VITALS: BP 95/55
[2020-10-07] MEDS: MORPHINE SULF INJ 2 MG/ML SYRINGE 1ML IV PRN ×5 (05:15→22:18)
[2020-10-07] MEDS: ONDANSETRON HCL 4 MG/2 ML VIAL IV PRN ×3 (05:15→19:19)
[2020-10-07] MEDS: BUDESONIDE (INHALATION) 0.5 MG/2 ML NEB NEB SCH ×2 (06:33→18:59)
[2020-10-07] MEDS: ALBUTEROL SULF 2.5 MG/0.5ML(0.5%) NEB SOLN NEB SCH ×3 (06:33→18:59)
[2020-10-07] MEDS: diphenhdrAMINE HCL 50 MG/1 ML VL IV PRN ×3 (07:59→21:22)
[2020-10-07 08:00] VITALS: BP 110/62
[2020-10-07 09:00] VITALS: BP 110/62
[2020-10-07] MEDS: methylPREDNISolone SOD SUCC 40 MG/ML VL IV SCH ×2 (09:15→22:17)
[2020-10-07] MEDS: LORazepam 2MG/ML-1ML VIAL IV PRN ×2 (11:26→23:34)
[2020-10-07 13:00] VITALS: BP 109/83
[2020-10-07] MEDS ORDERED: FAMOTIDINE 20 MG TAB PO ONE (13:30)
[2020-10-07 17:42] VITALS: BP 119/70
[2020-10-08] MEDS: ALBUTEROL SULF 2.5 MG/0.5ML(0.5%) NEB SOLN NEB PRN ×2 (00:27→08:58)
[2020-10-08] MEDS: TEMAZEPAM 15 MG CAP PO PRN (00:36)
[2020-10-08] MEDS: ONDANSETRON HCL 4 MG/2 ML VIAL IV PRN ×2 (01:15→12:54)
[2020-10-08] MEDS: MORPHINE SULF INJ 2 MG/ML SYRINGE 1ML IV PRN ×4 (02:19→18:11)
[2020-10-08] MEDS: diphenhdrAMINE HCL 50 MG/1 ML VL IV PRN ×3 (03:31→18:12)
[2020-10-08 05:00] VITALS: BP 115/62
[2020-10-08] MEDS: BUDESONIDE (INHALATION) 0.5 MG/2 ML NEB NEB SCH ×2 (06:02→19:37)
[2020-10-08] MEDS: ALBUTEROL SULF 2.5 MG/0.5ML(0.5%) NEB SOLN NEB SCH ×3 (06:02→19:37)
[2020-10-08 06:56] LABS: Basophils # (auto) 0.1 10 ^3/uL (0-0.2); Basophils % (auto) 0.3 % (0.0-2.0); Eosinophils # (auto) 0 10 ^3/uL (0-0.8); Eosinophils % (auto) 0.1 % (0.0-7.0); Hematocrit 41.7 % (36.0-46.0); Hemoglobin 14.3 g/dL (12.2-16.2); Lymphocytes # (auto) 1.6 10 ^3/uL (0.4-5.4); Lymphocytes % (auto) 10.3 % (10.0-50.0); Mean Corpuscular Hemoglobin 32.8 pg (28.0-32.0); Mean Corpuscular Hgb Conc. 34.3 g/dL (32.0-36.0); Mean Corpuscular Volume 95.6 fL (80.0-100.0); Monocytes # (auto) 0.6 10 ^3/uL (0-1.3); Monocytes % (auto) 3.7 % (0.0-12.0); Neutrophils # (auto) 13.5 10 ^3/uL (1.6-8.6); Neutrophils % (auto) 85.6 % (37.0-80.0); Nucleated Red Blood Cells % 0.1 %; Platelet Count (auto) 211 10^3/uL (140-450); Red Blood Cells 4.36 10^6/uL (4.0-5.20); Red Cell Distribution Width 13.7 % (11.8-14.3); White Blood Cell 15.8 10^3/uL (4.4-10.8)
[2020-10-08 07:09] LABS: Potassium 4.6 mmol/L (3.5-5.1)
[2020-10-08 07:16] LABS: BUN/Creatinine Ratio 23.2; Calcium 8.7 mg/dL (8.5-10.1)
[2020-10-08 08:00] VITALS: BP 108/75
[2020-10-08] MEDS: methylPREDNISolone SOD SUCC 40 MG/ML VL IV SCH (09:44)
[2020-10-08] MEDS: FAMOTIDINE 20 MG TAB PO SCH (09:45)
[2020-10-08 12:00] VITALS: BP 100/71
[2020-10-08] MEDS: LORazepam 2MG/ML-1ML VIAL IV PRN (15:12)
[2020-10-08 16:00] VITALS: BP 120/76
[2020-10-08 22:00] VITALS: BP 102/67
[2020-10-09] MEDS: TEMAZEPAM 15 MG CAP PO PRN ×2 (01:40→23:22)
[2020-10-09] MEDS: methylPREDNISolone SOD SUCC 40 MG/ML VL IV SCH ×3 (02:08→21:54)
[2020-10-09] MEDS: ONDANSETRON HCL 4 MG/2 ML VIAL IV PRN ×4 (02:08→20:42)
[2020-10-09] MEDS: diphenhdrAMINE HCL 50 MG/1 ML VL IV PRN ×4 (02:20→20:42)
[2020-10-09] MEDS: MORPHINE SULF INJ 2 MG/ML SYRINGE 1ML IV PRN ×5 (02:29→20:41)
[2020-10-09] MEDS: LORazepam 2MG/ML-1ML VIAL IV PRN ×2 (03:28→15:53)
[2020-10-09 05:12] VITALS: BP 115/64
[2020-10-09] MEDS: ALBUTEROL SULF 2.5 MG/0.5ML(0.5%) NEB SOLN NEB SCH ×4 (06:57→23:41)
[2020-10-09] MEDS: BUDESONIDE (INHALATION) 0.5 MG/2 ML NEB NEB SCH ×2 (06:57→18:10)
[2020-10-09 09:00] VITALS: BP 119/73
[2020-10-09] MEDS: FAMOTIDINE 20 MG TAB PO SCH (10:42)
[2020-10-09 13:00] VITALS: BP 133/79
[2020-10-09 16:56] VITALS: BP 123/73
[2020-10-09 18:44] VITALS: BP 123/73
[2020-10-09 22:19] VITALS: BP 146/93
[2020-10-10] MEDS: MORPHINE SULF INJ 2 MG/ML SYRINGE 1ML IV PRN ×6 (00:37→21:45)
[2020-10-10] MEDS: diphenhdrAMINE HCL 50 MG/1 ML VL IV PRN ×4 (02:43→21:45)
[2020-10-10] MEDS: ONDANSETRON HCL 4 MG/2 ML VIAL IV PRN ×4 (02:43→21:45)
[2020-10-10] MEDS: ALBUTEROL SULF 2.5 MG/0.5ML(0.5%) NEB SOLN NEB PRN (03:01)
[2020-10-10 05:13] VITALS: BP_SYST 107; BP_SYST 110; BP_DIAS 53; BP_DIAS 61
[2020-10-10 05:43] LABS: Basophils # (auto) 0 10 ^3/uL (0-0.2); Basophils % (auto) 0.2 % (0.0-2.0); Eosinophils # (auto) 0 10 ^3/uL (0-0.8); Hematocrit 40.4 % (36.0-46.0); Hemoglobin 13.6 g/dL (12.2-16.2); Lymphocytes # (auto) 1.3 10 ^3/uL (0.4-5.4); Lymphocytes % (auto) 10.9 % (10.0-50.0); Mean Corpuscular Hemoglobin 32.2 pg (28.0-32.0); Mean Corpuscular Hgb Conc. 33.7 g/dL (32.0-36.0); Mean Corpuscular Volume 95.6 fL (80.0-100.0); Monocytes # (auto) 0.6 10 ^3/uL (0-1.3); Monocytes % (auto) 4.8 % (0.0-12.0); Neutrophils # (auto) 9.7 10 ^3/uL (1.6-8.6); Neutrophils % (auto) 84.1 % (37.0-80.0); Platelet Count (auto) 232 10^3/uL (140-450); Red Blood Cells 4.23 10^6/uL (4.0-5.20); Red Cell Distribution Width 13.3 % (11.8-14.3); White Blood Cell 11.6 10^3/uL (4.4-10.8)
[2020-10-10 05:58] LABS: BUN/Creatinine Ratio 23.5; Calcium 8.6 mg/dL (8.5-10.1); Potassium 4.4 mmol/L (3.5-5.1)
[2020-10-10] MEDS: BUDESONIDE (INHALATION) 0.5 MG/2 ML NEB NEB SCH ×2 (07:03→19:03)
[2020-10-10] MEDS: ALBUTEROL SULF 2.5 MG/0.5ML(0.5%) NEB SOLN NEB SCH ×4 (07:03→22:16)
[2020-10-10 08:29] VITALS: BP 125/82
[2020-10-10] MEDS: LORazepam 2MG/ML-1ML VIAL IV PRN ×2 (08:40→20:51)
[2020-10-10] MEDS: FAMOTIDINE 20 MG TAB PO SCH (09:28)
[2020-10-10] MEDS: methylPREDNISolone SOD SUCC 40 MG/ML VL IV SCH ×2 (09:29→21:44)
[2020-10-10] MEDS ORDERED: ALBUTEROL SULF 2.5 MG/0.5ML(0.5%) NEB SOLN NEB SCH (09:45)
[2020-10-10 12:55] VITALS: BP 132/74
[2020-10-10 16:59] VITALS: BP 125/83
[2020-10-10 22:00] VITALS: BP 142/88
[2020-10-10] MEDS: TEMAZEPAM 15 MG CAP PO PRN (23:18)
[2020-10-11] MEDS: MORPHINE SULF INJ 2 MG/ML SYRINGE 1ML IV PRN ×4 (01:48→14:57)
[2020-10-11] MEDS: ALBUTEROL SULF 2.5 MG/0.5ML(0.5%) NEB SOLN NEB SCH ×5 (02:24→18:23)
[2020-10-11] MEDS: ONDANSETRON HCL 4 MG/2 ML VIAL IV PRN ×2 (03:32→09:34)
[2020-10-11] MEDS: diphenhdrAMINE HCL 50 MG/1 ML VL IV PRN ×2 (03:32→09:34)
[2020-10-11 05:00] VITALS: BP 112/64
[2020-10-11] MEDS: BUDESONIDE (INHALATION) 0.5 MG/2 ML NEB NEB SCH ×2 (06:21→18:23)
[2020-10-11 07:19] LABS: Basophils # (auto) 0 10 ^3/uL (0-0.2); Basophils % (auto) 0.3 % (0.0-2.0); Eosinophils # (auto) 0 10 ^3/uL (0-0.8); Eosinophils % (auto) 0.1 % (0.0-7.0); Hematocrit 42.6 % (36.0-46.0); Hemoglobin 14.4 g/dL (12.2-16.2); Lymphocytes # (auto) 1.7 10 ^3/uL (0.4-5.4); Lymphocytes % (auto) 13.8 % (10.0-50.0); Mean Corpuscular Hemoglobin 32.1 pg (28.0-32.0); Mean Corpuscular Hgb Conc. 33.7 g/dL (32.0-36.0); Mean Corpuscular Volume 95.1 fL (80.0-100.0); Monocytes # (auto) 0.7 10 ^3/uL (0-1.3); Monocytes % (auto) 5.9 % (0.0-12.0); Neutrophils # (auto) 9.8 10 ^3/uL (1.6-8.6); Neutrophils % (auto) 79.9 % (37.0-80.0); Nucleated Red Blood Cells % 0.1 %; Platelet Count (auto) 269 10^3/uL (140-450); Red Blood Cells 4.48 10^6/uL (4.0-5.20); Red Cell Distribution Width 13.4 % (11.8-14.3); White Blood Cell 12.3 10^3/uL (4.4-10.8)
[2020-10-11 07:38] LABS: Potassium 4.4 mmol/L (3.5-5.1)
[2020-10-11] MEDS: LORazepam 2MG/ML-1ML VIAL IV PRN (08:00)
[2020-10-11 09:00] VITALS: BP 135/80
[2020-10-11] MEDS: methylPREDNISolone SOD SUCC 40 MG/ML VL IV SCH (09:33)
[2020-10-11] MEDS: FAMOTIDINE 20 MG TAB PO SCH (10:00)
[2020-10-11] MEDS ORDERED: ONDA-144 PO (10:29)
[2020-10-11] MEDS ORDERED: PANT40TA2 PO (10:30)
[2020-10-11] MEDS ORDERED: PRED20TA2 PO (10:30)
[2020-10-11 13:00] VITALS: BP 114/76
[2020-10-11 17:00] VITALS: BP 154/82
== END 2020-10-11 19:07 | disposition home or self-care (01) | DRG 141 ==
LOC: EDUNIT# 09:35 → ER 09:35 → EDBD 09:35 → OVERFLOW 16:19 → CENTRAL 19:13
PROVIDERS: ADMIT Nurse Practitioner Acute Care; ATTEND Internal Medicine Pulmonary Disease
PROC: 05HA33Z Insertion of Infusion Device into Left Brachial Vein, Percutaneous Approach (ICD-10-PCS; principal; 2020-10-08)
PROC: B54NZZA Ultrasonography of Left Upper Extremity Veins, Guidance (ICD-10-PCS; 2020-10-08)
DX: J45.902 Unspecified asthma with status asthmaticus (principal); F33.3 Major depressive disorder, recurrent, severe with psychotic symptoms; D64.9 Anemia, unspecified; F41.9 Anxiety disorder, unspecified; Z80.1 Family history of malignant neoplasm of trachea, bronchus and lung; Z80.3 Family history of malignant neoplasm of breast; Z80.41 Family history of malignant neoplasm of ovary; J44.9 Chronic obstructive pulmonary disease, unspecified; Z80.8 Family history of malignant neoplasm of other organs or systems; Z81.8 Family history of other mental and behavioral disorders; Z82.0 Family history of epilepsy and other diseases of the nervous system; Z82.3 Family history of stroke; Z82.49 Family history of ischemic heart disease and other diseases of the circulatory system; Z82.5 Family history of asthma and other chronic lower respiratory diseases; Z82.62 Family history of osteoporosis; Z83.3 Family history of diabetes mellitus; F43.21 Adjustment disorder with depressed mood; F12.10 Cannabis abuse, uncomplicated; Z20.822 Contact with and (suspected) exposure to COVID-19; Z88.8 Allergy status to other drugs, medicaments and biological substances; Z91.012 Allergy to eggs; Z91.010 Allergy to peanuts
CPT/HCPCS: 36415; 71045; 80048; 80053; 81001; 83735; 84702; 85025; 87426; 94640; 96365; 96375; G0378; J1100; J2405

== ENCOUNTER 2021-03-02 08:08 | Inpatient (IN) | payer OTHER ==
[~2021-03-02] VITALS: Ht 167.6 cm; Wt 85.5 kg
[~2021-03-02 08:08] MED LIST changes: +ALBU108A5 IN; -FLUT250INH IN; +PANT40TA2 PO; +TIOT17SP IN; -TIOTCAP IN
[2021-03-02] MEDS ORDERED: SODIUM CHLORIDE 0.9% 500 ML IV ONE (10:00)
[2021-03-02] MEDS ORDERED: ALBUTEROL SULF 2.5 MG/0.5ML(0.5%) NEB SOLN NEB ONE ×4 (10:00→16:15)
[2021-03-02] MEDS ORDERED: methylPREDNISolone SOD SUCC 125 MG/2 ML VL IV ONE (10:00)
[2021-03-02] MEDS ORDERED: SODIUM CHLORIDE 0.9% 1,000 ML IV ONE ×2 (10:00→18:30)
[2021-03-02 10:31] LABS: Basophils # (auto) 0 10 ^3/uL (0-0.2); Basophils % (auto) 0.3 % (0.0-2.0); Eosinophils # (auto) 1.2 10 ^3/uL (0-0.8); Eosinophils % (auto) 10.9 % (0.0-7.0); Lymphocytes # (auto) 3.1 10 ^3/uL (0.4-5.4); Lymphocytes % (auto) 27.7 % (10.0-50.0); Mean Corpuscular Hemoglobin 31.8 pg (28.0-32.0); Mean Corpuscular Hgb Conc. 34.2 g/dL (32.0-36.0); Mean Corpuscular Volume 92.8 fL (80.0-100.0); Monocytes # (auto) 0.8 10 ^3/uL (0-1.3); Monocytes % (auto) 6.9 % (0.0-12.0); Neutrophils % (auto) 54.2 % (37.0-80.0); Red Blood Cells 4.74 10^6/uL (4.0-5.20); Red Cell Distribution Width 13.2 % (11.8-14.3)
[2021-03-02 10:36] LABS: Albumin 4.2 g/dL (3.4-5.0); Calcium 9.4 mg/dL (8.5-10.1); Magnesium 2.4 mg/dL (1.6-2.6)
[2021-03-02 10:45] LABS: BUN/Creatinine Ratio 14.5; Bilirubin, Total 0.7 mg/dL (0.2-1.0); Total Protein 7.3 g/dL (6.4-8.2)
[2021-03-02] MEDS ORDERED: ONDANSETRON HCL 4 MG/2 ML VIAL IV ONE ×2 (13:30→17:30)
[2021-03-02] MEDS ORDERED: LORazepam 2MG/ML-1ML VIAL IV ONE (13:30)
[2021-03-02 14:51] LABS: Urine Bacteria NONE SEEN /hpf (None Seen); Urine Blood Negative /uL (Negative); Urine Mucus FEW (None Seen); Urine Specific Gravity 1.027 (1.001-1.035); Urine WBC 4 /hpf (0 - 5)
[2021-03-02] MEDS ORDERED: AZITHROMYCIN 500MG/ 250ML 250 ML IV ONE (15:30)
[2021-03-02] MEDS ORDERED: MAGNESIUM SULFATE 1GM/100ML 100 ML IV ONE (18:30)
[2021-03-02] MEDS ORDERED: NITROGLYCERIN 0.4 MG SL TAB SL PRN (18:30)
[2021-03-02 19:45] LABS: Alcohol, Urine < 3.0 mg/dL (0-10); Amphetamine Screen, Urine NEGATIVE (NEGATIVE); Barbiturate Scree,Urine NEGATIVE (NEGATIVE); Benzodiazephine Screen, Urine NEGATIVE (NEGATIVE); Cannabinoid Screen, Urine POSITIVE (NEGATIVE); Cocaine Screen, Urine NEGATIVE (NEGATIVE); Phencyclidine Screen, Urine NEGATIVE (NEGATIVE)
[2021-03-02 19:55] LABS: Opiate Scree,Urine NEGATIVE (NEGATIVE)
[2021-03-02] MEDS: LORazepam 2MG/ML-1ML VIAL IV PRN (20:12)
[2021-03-02 21:45] VITALS: BP 113/72
[2021-03-02] MEDS: methylPREDNISolone SOD SUCC 125 MG/2 ML VL IV SCH (21:51)
[2021-03-02] MEDS: MORPHINE SULFATE INJECTION 2 MG/ML SYRG IV PRN (21:51)
[2021-03-02 22:00] VITALS: BP 113/72
[2021-03-02] MEDS: diphenhdrAMINE HCL 50 MG/1 ML VL IV PRN (23:00)
[2021-03-03] MEDS: ALBUTEROL SULF 2.5 MG/0.5ML(0.5%) NEB SOLN NEB SCH ×5 (01:02→22:41)
[2021-03-03] MEDS: BUDESONIDE (INHALATION) 0.5 MG/2 ML NEB NEB SCH ×3 (01:02→19:00)
[2021-03-03] MEDS ORDERED: FLUT100I IN (02:43)
[2021-03-03] MEDS: diphenhdrAMINE HCL 50 MG/1 ML VL IV PRN ×4 (04:15→20:27)
[2021-03-03] MEDS: MORPHINE SULFATE INJECTION 2 MG/ML SYRG IV PRN ×5 (04:15→22:12)
[2021-03-03 05:00] VITALS: BP 114/65
[2021-03-03 08:00] VITALS: BP 107/61
[2021-03-03 09:00] VITALS: BP 107/61
[2021-03-03] MEDS: MONTELUKAST SODIUM 10 MG TAB PO SCH (09:34)
[2021-03-03] MEDS: methylPREDNISolone SOD SUCC 125 MG/2 ML VL IV SCH (09:34)
[2021-03-03] MEDS ORDERED: AZITHROMYCIN 500MG/ 250ML 250 ML IV SCH (10:00)
[2021-03-03] MEDS: AZITHROMYCIN 250 MG TAB PO SCH (11:12)
[2021-03-03 12:00] VITALS: BP 110/63
[2021-03-03] MEDS: LORazepam 2MG/ML-1ML VIAL IV PRN (12:25)
[2021-03-03] MEDS: ONDANSETRON ODT 4 MG TAB PO PRN ×2 (12:26→16:32)
[2021-03-03 16:00] VITALS: BP 104/60
[2021-03-03 22:00] VITALS: BP 110/64
[2021-03-03] MEDS: methylPREDNISolone SOD SUCC 40 MG/ML VL IV SCH (22:12)
[2021-03-03] MEDS ORDERED: TEMAZEPAM 15 MG CAP PO ONE (23:00)
[2021-03-03] MEDS: ONDANSETRON HCL 4 MG/2 ML VIAL IV PRN (23:27)
[2021-03-04] MEDS: diphenhdrAMINE HCL 50 MG/1 ML VL IV PRN ×4 (02:02→21:10)
[2021-03-04] MEDS: LORazepam 2MG/ML-1ML VIAL IV PRN ×2 (03:03→16:31)
[2021-03-04] MEDS: MORPHINE SULFATE INJECTION 2 MG/ML SYRG IV PRN ×5 (04:23→21:10)
[2021-03-04 05:00] VITALS: BP 112/67
[2021-03-04] MEDS: MONTELUKAST SODIUM 10 MG TAB PO SCH (08:46)
[2021-03-04] MEDS: AZITHROMYCIN 250 MG TAB PO SCH (08:47)
[2021-03-04] MEDS: ONDANSETRON HCL 4 MG/2 ML VIAL IV PRN ×4 (08:48→21:10)
[2021-03-04 09:00] VITALS: BP 118/65
[2021-03-04] MEDS: ALBUTEROL SULF 2.5 MG/0.5ML(0.5%) NEB SOLN NEB SCH ×4 (10:24→22:16)
[2021-03-04] MEDS: BUDESONIDE (INHALATION) 0.5 MG/2 ML NEB NEB SCH ×2 (10:25→22:16)
[2021-03-04] MEDS: methylPREDNISolone SOD SUCC 40 MG/ML VL IV SCH ×2 (10:57→22:18)
[2021-03-04 13:00] VITALS: BP 115/72
[2021-03-04] MEDS ORDERED: IPRATROPIUM BROM 0.5 MG/2.5ML INH SOL NEB SCH (14:00)
[2021-03-04 17:00] VITALS: BP 117/90
[2021-03-04 22:00] VITALS: BP 124/70
[2021-03-04] MEDS: TEMAZEPAM 15 MG CAP PO PRN (23:14)
[2021-03-05] MEDS: MORPHINE SULFATE INJECTION 2 MG/ML SYRG IV PRN ×6 (01:08→22:39)
[2021-03-05] MEDS: ONDANSETRON HCL 4 MG/2 ML VIAL IV PRN ×6 (01:08→22:39)
[2021-03-05] MEDS: ALBUTEROL SULF 2.5 MG/0.5ML(0.5%) NEB SOLN NEB PRN (02:10)
[2021-03-05] MEDS: diphenhdrAMINE HCL 50 MG/1 ML VL IV PRN ×3 (03:26→16:56)
[2021-03-05 05:00] VITALS: BP 126/63
[2021-03-05] MEDS: LORazepam 2MG/ML-1ML VIAL IV PRN ×2 (06:05→18:29)
[2021-03-05] MEDS: ALBUTEROL SULF 2.5 MG/0.5ML(0.5%) NEB SOLN NEB SCH ×5 (06:29→22:50)
[2021-03-05] MEDS: BUDESONIDE (INHALATION) 0.5 MG/2 ML NEB NEB SCH ×3 (06:29→22:50)
[2021-03-05 09:00] VITALS: BP 130/71
[2021-03-05] MEDS: MONTELUKAST SODIUM 10 MG TAB PO SCH (10:08)
[2021-03-05] MEDS: AZITHROMYCIN 250 MG TAB PO SCH (10:08)
[2021-03-05] MEDS: methylPREDNISolone SOD SUCC 40 MG/ML VL IV SCH ×2 (10:09→22:10)
[2021-03-05 10:52] LABS: Basophils # (auto) 0.1 10 ^3/uL (0-0.2); Basophils % (auto) 0.4 % (0.0-2.0); Eosinophils # (auto) 0 10 ^3/uL (0-0.8); Hematocrit 40.8 % (36.0-46.0); Hemoglobin 13.8 g/dL (12.2-16.2); Lymphocytes # (auto) 2.4 10 ^3/uL (0.4-5.4); Lymphocytes % (auto) 16.8 % (10.0-50.0); Mean Corpuscular Hgb Conc. 33.9 g/dL (32.0-36.0); Mean Corpuscular Volume 94.4 fL (80.0-100.0); Monocytes % (auto) 6.9 % (0.0-12.0); Neutrophils % (auto) 75.9 % (37.0-80.0); Red Blood Cells 4.32 10^6/uL (4.0-5.20); Red Cell Distribution Width 13.7 % (11.8-14.3); White Blood Cell 14.5 10^3/uL (4.4-10.8)
[2021-03-05 11:05] LABS: BUN/Creatinine Ratio 14.6; Calcium 8.8 mg/dL (8.5-10.1); Potassium 3.8 mmol/L (3.5-5.1)
[2021-03-05 13:00] VITALS: BP 127/83
[2021-03-05 17:00] VITALS: BP 109/67
[2021-03-05] MEDS ORDERED: cefTRIAXone 1GM/50ML D5W 50 ML IV ONE (17:15)
[2021-03-05 17:39] VITALS: BP 127/83
[2021-03-05 21:28] VITALS: BP 124/76
[2021-03-05] MEDS: FAMOTIDINE (10MG/ML) 2ML VL IV SCH (22:10)
[2021-03-05] MEDS: TEMAZEPAM 15 MG CAP PO PRN (23:47)
[2021-03-06] MEDS: diphenhdrAMINE HCL 50 MG/1 ML VL IV PRN ×4 (00:40→20:34)
[2021-03-06] MEDS: MORPHINE SULFATE INJECTION 2 MG/ML SYRG IV PRN ×5 (02:34→21:16)
[2021-03-06] MEDS: ONDANSETRON HCL 4 MG/2 ML VIAL IV PRN ×5 (02:35→21:17)
[2021-03-06] MEDS: ALBUTEROL SULF 2.5 MG/0.5ML(0.5%) NEB SOLN NEB PRN (03:02)
[2021-03-06 04:40] VITALS: BP 108/59
[2021-03-06] MEDS: methylPREDNISolone SOD SUCC 40 MG/ML VL IV SCH ×3 (06:27→21:17)
[2021-03-06] MEDS: LORazepam 2MG/ML-1ML VIAL IV PRN ×2 (06:28→18:56)
[2021-03-06] MEDS: ALBUTEROL SULF 2.5 MG/0.5ML(0.5%) NEB SOLN NEB SCH ×5 (06:48→22:01)
[2021-03-06] MEDS: BUDESONIDE (INHALATION) 0.5 MG/2 ML NEB NEB SCH ×2 (06:49→22:02)
[2021-03-06 09:00] VITALS: BP 140/86
[2021-03-06] MEDS: FAMOTIDINE (10MG/ML) 2ML VL IV SCH ×2 (09:36→21:17)
[2021-03-06] MEDS: AZITHROMYCIN 250 MG TAB PO SCH (09:36)
[2021-03-06] MEDS: cefTRIAXone 1GM/50ML D5W 50 ML IV SCH (09:36)
[2021-03-06] MEDS: MONTELUKAST SODIUM 10 MG TAB PO SCH (09:36)
[2021-03-06 11:16] LABS: INR 1.01 (0.9-1.15)
[2021-03-06 11:24] LABS: Potassium 4.1 mmol/L (3.5-5.1)
[2021-03-06 11:27] LABS: Basophils # (auto) 0 10 ^3/uL (0-0.2); Basophils % (auto) 0.2 % (0.0-2.0); Eosinophils # (auto) 0 10 ^3/uL (0-0.8); Eosinophils % (auto) 0.1 % (0.0-7.0); Hematocrit 42.7 % (36.0-46.0); Hemoglobin 14.3 g/dL (12.2-16.2); Lymphocytes # (auto) 1.1 10 ^3/uL (0.4-5.4); Lymphocytes % (auto) 7.7 % (10.0-50.0); Mean Corpuscular Hemoglobin 31.2 pg (28.0-32.0); Mean Corpuscular Hgb Conc. 33.6 g/dL (32.0-36.0); Mean Corpuscular Volume 92.9 fL (80.0-100.0); Monocytes % (auto) 6.9 % (0.0-12.0); Neutrophils # (auto) 12.2 10 ^3/uL (1.6-8.6); Neutrophils % (auto) 85.1 % (37.0-80.0); Red Blood Cells 4.59 10^6/uL (4.0-5.20); Red Cell Distribution Width 13.2 % (11.8-14.3); White Blood Cell 14.3 10^3/uL (4.4-10.8)
[2021-03-06 11:34] LABS: Albumin 4.1 g/dL (3.4-5.0); BUN/Creatinine Ratio 14.4; Bilirubin, Total 0.3 mg/dL (0.2-1.0); Calcium 9.1 mg/dL (8.5-10.1); Magnesium 2.4 mg/dL (1.6-2.6); Phosphorus 2.4 mg/dL (2.5-4.90); Total Protein 7.2 g/dL (6.4-8.2)
[2021-03-06 12:45] VITALS: BP 109/66
[2021-03-06 17:00] VITALS: BP 131/75
[2021-03-06 22:00] VITALS: BP 134/77
[2021-03-06] MEDS: TEMAZEPAM 15 MG CAP PO PRN (23:42)
[2021-03-07] MEDS: BUDESONIDE (INHALATION) 0.5 MG/2 ML NEB NEB SCH ×2 (00:36→10:00)
[2021-03-07] MEDS: ONDANSETRON HCL 4 MG/2 ML VIAL IV PRN ×5 (01:31→21:30)
[2021-03-07] MEDS: MORPHINE SULFATE INJECTION 2 MG/ML SYRG IV PRN ×5 (01:31→21:33)
[2021-03-07] MEDS: diphenhdrAMINE HCL 50 MG/1 ML VL IV PRN ×4 (02:32→21:31)
[2021-03-07 05:00] VITALS: BP 115/64
[2021-03-07] MEDS: methylPREDNISolone SOD SUCC 40 MG/ML VL IV SCH ×3 (05:38→21:30)
[2021-03-07 06:13] LABS: INR 1.03 (0.9-1.15); Partial Thromboplastin Time 28.7 sec (23.6-33.0)
[2021-03-07] MEDS: ALBUTEROL SULF 2.5 MG/0.5ML(0.5%) NEB SOLN NEB SCH ×5 (06:13→21:04)
[2021-03-07 06:18] LABS: Albumin 3.7 g/dL (3.4-5.0); BUN/Creatinine Ratio 22.5; Calcium 8.6 mg/dL (8.5-10.1); Magnesium 2.6 mg/dL (1.6-2.6); Potassium 4.5 mmol/L (3.5-5.1)
[2021-03-07 06:21] LABS: Bilirubin, Total 0.3 mg/dL (0.2-1.0); Phosphorus 3.6 mg/dL (2.5-4.90); Total Protein 6.9 g/dL (6.4-8.2)
[2021-03-07 06:32] LABS: Basophils # (auto) 0 10 ^3/uL (0-0.2); Basophils % (auto) 0.1 % (0.0-2.0); Eosinophils # (auto) 0 10 ^3/uL (0-0.8); Eosinophils % (auto) 0.1 % (0.0-7.0); Hematocrit 43.4 % (36.0-46.0); Hemoglobin 14.6 g/dL (12.2-16.2); Lymphocytes # (auto) 1.9 10 ^3/uL (0.4-5.4); Lymphocytes % (auto) 11.9 % (10.0-50.0); Mean Corpuscular Hgb Conc. 33.6 g/dL (32.0-36.0); Mean Corpuscular Volume 95.4 fL (80.0-100.0); Monocytes # (auto) 0.8 10 ^3/uL (0-1.3); Monocytes % (auto) 5.4 % (0.0-12.0); Neutrophils % (auto) 82.5 % (37.0-80.0); Nucleated Red Blood Cells % 0.1 %; Red Blood Cells 4.55 10^6/uL (4.0-5.20); Red Cell Distribution Width 13.3 % (11.8-14.3); White Blood Cell 15.7 10^3/uL (4.4-10.8)
[2021-03-07] MEDS: LORazepam 2MG/ML-1ML VIAL IV PRN ×2 (06:49→19:56)
[2021-03-07] MEDS: cefTRIAXone 1GM/50ML D5W 50 ML IV SCH (08:49)
[2021-03-07] MEDS: FAMOTIDINE 20 MG TAB PO SCH ×2 (08:50→21:31)
[2021-03-07] MEDS: MONTELUKAST SODIUM 10 MG TAB PO SCH (08:50)
[2021-03-07 09:47] VITALS: BP 129/83
[2021-03-07 11:12] LABS: Free T3 2.08 pg/mL (2.3-4.2); Free T4 (Free Thyroxine) 1.16 ng/dL (0.89-1.76)
[2021-03-07 13:00] VITALS: BP 133/82
[2021-03-07] MEDS ORDERED: traMADol HCL 50 MG TAB PO ONE (13:45)
[2021-03-07 17:22] VITALS: BP 128/74
[2021-03-07 22:00] VITALS: BP 123/76
[2021-03-07] MEDS: TEMAZEPAM 15 MG CAP PO PRN (22:49)
[2021-03-08] MEDS: MORPHINE SULFATE INJECTION 2 MG/ML SYRG IV PRN ×3 (01:37→10:32)
[2021-03-08] MEDS: ALBUTEROL SULF 2.5 MG/0.5ML(0.5%) NEB SOLN NEB SCH ×3 (02:59→10:25)
[2021-03-08] MEDS: diphenhdrAMINE HCL 50 MG/1 ML VL IV PRN ×2 (03:33→10:33)
[2021-03-08 05:00] VITALS: BP 117/70
[2021-03-08] MEDS: ONDANSETRON HCL 4 MG/2 ML VIAL IV PRN ×2 (05:51→10:32)
[2021-03-08] MEDS: methylPREDNISolone SOD SUCC 40 MG/ML VL IV SCH (05:51)
[2021-03-08] MEDS: cefTRIAXone 1GM/50ML D5W 50 ML IV SCH (08:29)
[2021-03-08] MEDS: FAMOTIDINE 20 MG TAB PO SCH (08:30)
[2021-03-08] MEDS: MONTELUKAST SODIUM 10 MG TAB PO SCH (08:30)
[2021-03-08 09:00] VITALS: BP 132/67
[2021-03-08] MEDS: BUDESONIDE (INHALATION) 0.5 MG/2 ML NEB NEB SCH (10:25)
[2021-03-08] MEDS ORDERED: LEVO750T8 PO (10:52)
[2021-03-08] MEDS ORDERED: PRED20TA2 PO (10:52)
[2021-03-08] MEDS ORDERED: ONDA-144 PO (10:52)
== END 2021-03-08 13:20 | disposition home or self-care (01) | DRG 141 ==
LOC: ER 08:08 → EDBD 08:08 → OVERFLOW 18:20 → WEST WING 20:00
PROVIDERS: ADMIT Nurse Practitioner Acute Care; ATTEND Internal Medicine Pulmonary Disease
PROC: 05H933Z Insertion of Infusion Device into Right Brachial Vein, Percutaneous Approach (ICD-10-PCS; principal; 2021-03-02)
PROC: B54MZZA Ultrasonography of Right Upper Extremity Veins, Guidance (ICD-10-PCS; 2021-03-02)
DX: J45.902 Unspecified asthma with status asthmaticus (principal); F32.A Depression, unspecified; N39.0 Urinary tract infection, site not specified; J98.11 Atelectasis; Z20.822 Contact with and (suspected) exposure to COVID-19; F41.9 Anxiety disorder, unspecified; Z80.1 Family history of malignant neoplasm of trachea, bronchus and lung; Z80.3 Family history of malignant neoplasm of breast; Z80.41 Family history of malignant neoplasm of ovary; Z80.8 Family history of malignant neoplasm of other organs or systems; Z81.8 Family history of other mental and behavioral disorders; Z82.0 Family history of epilepsy and other diseases of the nervous system; Z82.3 Family history of stroke; Z82.49 Family history of ischemic heart disease and other diseases of the circulatory system; Z82.5 Family history of asthma and other chronic lower respiratory diseases; Z82.62 Family history of osteoporosis; Z83.3 Family history of diabetes mellitus; Z91.012 Allergy to eggs; Z91.010 Allergy to peanuts; Z88.8 Allergy status to other drugs, medicaments and biological substances; Z91.09 Other allergy status, other than to drugs and biological substances
CPT/HCPCS: 36415; 71045; 71046; 73060; 80048; 80053; 80307; 81001; 82306; 83735; 83880; 84100; 84439; 84443; 84481; 84702; 85025; 85610; 85730; 87426; 87804; 93005; 94640; 96361; 96374; 96375; G0378; J0696; J2405; J3490; Q0162

== ENCOUNTER 2021-03-25 08:27 | Emergency (ER) | payer OTHER ==
[~2021-03-25] VITALS: Ht 177.8 cm; Wt 95.3 kg
[~2021-03-25 08:27] MED LIST changes: +FLUT100I IN; +LEVO750T8 PO
[2021-03-25] MEDS ORDERED: ALBUTEROL SULF 2.5 MG/0.5ML(0.5%) NEB SOLN HHN ONE (09:30)
[2021-03-25] MEDS ORDERED: methylPREDNISolone SOD SUCC 125 MG/2 ML VL IV ONE (09:30)
[2021-03-25 09:53] LABS: Basophils # (auto) 0.1 10 ^3/uL (0-0.2); Basophils % (auto) 0.7 % (0.0-2.0); Eosinophils # (auto) 0.5 10 ^3/uL (0-0.8); Eosinophils % (auto) 5.8 % (0.0-7.0); Hematocrit 43.9 % (36.0-46.0); Hemoglobin 15.1 g/dL (12.2-16.2); Lymphocytes # (auto) 1.9 10 ^3/uL (0.4-5.4); Lymphocytes % (auto) 22.6 % (10.0-50.0); Mean Corpuscular Hemoglobin 32.4 pg (28.0-32.0); Mean Corpuscular Hgb Conc. 34.3 g/dL (32.0-36.0); Mean Corpuscular Volume 94.4 fL (80.0-100.0); Monocytes # (auto) 0.6 10 ^3/uL (0-1.3); Neutrophils # (auto) 5.3 10 ^3/uL (1.6-8.6); Neutrophils % (auto) 63.9 % (37.0-80.0); Red Blood Cells 4.65 10^6/uL (4.0-5.20); Red Cell Distribution Width 13.5 % (11.8-14.3); White Blood Cell 8.3 10^3/uL (4.4-10.8)
[2021-03-25 10:11] LABS: Albumin 3.9 g/dL (3.4-5.0); Calcium 8.9 mg/dL (8.5-10.1); Potassium 3.9 mmol/L (3.5-5.1)
[2021-03-25 10:17] LABS: BUN/Creatinine Ratio 14.5; Bilirubin, Total 0.4 mg/dL (0.2-1.0); Total Protein 7.3 g/dL (6.4-8.2)
[2021-03-25 14:00] VITALS: BP 106/54
== END 2021-03-25 14:42 | disposition home or self-care (01) ==
LOC: ER 08:27 → EDBD 08:27 → EDUNIT# 08:27 → ER 14:05
DX: J45.909 Unspecified asthma, uncomplicated (principal); F12.10 Cannabis abuse, uncomplicated
CPT/HCPCS: 36415; 71045; 80053; 84484; 85025; 93005; 94644; 96374; 99285; J2930

== ENCOUNTER 2021-04-28 07:30 | Emergency (ER) | payer OTHER ==
[~2021-04-28] VITALS: Ht 167.6 cm; Wt 74.8 kg
[2021-04-28] MEDS ORDERED: PROMETHAZINE HCL 25 MG/ML 1ML IV ONE (08:15)
[2021-04-28] MEDS ORDERED: SODIUM CHLORIDE 0.9% 1,000 ML IV ONE ×2 (08:15)
[2021-04-28] MEDS ORDERED: PROMETHAZINE HCL 25 MG/ML 1ML IM ONE (08:15)
[2021-04-28 08:18] LABS: Urine Bacteria NONE SEEN /hpf (None Seen); Urine Blood TRACE /uL (Negative); Urine Mucus FEW (None Seen); Urine Specific Gravity 1.026 (1.001-1.035); Urine WBC 2 /hpf (0 - 5)
[2021-04-28 08:54] LABS: Basophils # (auto) 0.1 10 ^3/uL (0-0.2); Basophils % (auto) 0.9 % (0.0-2.0); Eosinophils # (auto) 0.1 10 ^3/uL (0-0.8); Eosinophils % (auto) 1.1 % (0.0-7.0); Hematocrit 39.8 % (36.0-46.0); Hemoglobin 13.4 g/dL (12.2-16.2); Lymphocytes # (auto) 3.1 10 ^3/uL (0.4-5.4); Lymphocytes % (auto) 34.4 % (10.0-50.0); Mean Corpuscular Hemoglobin 31.2 pg (28.0-32.0); Mean Corpuscular Hgb Conc. 33.6 g/dL (32.0-36.0); Mean Corpuscular Volume 92.7 fL (80.0-100.0); Monocytes # (auto) 0.8 10 ^3/uL (0-1.3); Monocytes % (auto) 9.4 % (0.0-12.0); Neutrophils # (auto) 4.9 10 ^3/uL (1.6-8.6); Neutrophils % (auto) 54.2 % (37.0-80.0); Nucleated Red Blood Cells % 0.1 %; Red Cell Distribution Width 13.6 % (11.8-14.3)
[2021-04-28 09:01] LABS: Albumin 4.1 g/dL (3.4-5.0); Potassium 3.8 mmol/L (3.5-5.1)
[2021-04-28 09:05] LABS: BUN/Creatinine Ratio 17.6; Bilirubin, Total 0.6 mg/dL (0.2-1.0); Total Protein 6.7 g/dL (6.4-8.2)
[2021-04-28 09:33] VITALS: BP 99/69
[2021-04-28] MEDS ORDERED: LORazepam 2MG/ML-1ML VIAL IV ONE (10:00)
[2021-04-28] MEDS ORDERED: ONDANSETRON HCL 4 MG/2 ML VIAL IV ONE (13:15)
== END 2021-04-28 13:44 | disposition home or self-care (01) ==
LOC: ER 07:30
DX: R11.2 Nausea with vomiting, unspecified (principal); J45.909 Unspecified asthma, uncomplicated; F12.10 Cannabis abuse, uncomplicated; Z20.822 Contact with and (suspected) exposure to COVID-19
CPT/HCPCS: 36415; 71045; 74176; 80053; 81001; 81025; 85025; 87426; 87804; 96361; 96374; 96375; 99285; J2060; J2405; J2550; J7030

== ENCOUNTER 2021-05-19 21:45 | Emergency (ER) | payer OTHER ==
[~2021-05-19] VITALS: Ht 167.6 cm; Wt 72.6 kg
[~2021-05-19 21:45] MED LIST changes: -ALBU2SYP10 PO; -ALBUAER3 IN; -LEVO750T8 PO
[2021-05-19] MEDS ORDERED: ALBUTEROL SULF 2.5 MG/0.5ML(0.5%) NEB SOLN ONE (21:57)
[2021-05-19] MEDS ORDERED: ALBUTEROL SULF 2.5 MG/0.5ML(0.5%) NEB SOLN NEB ONE (22:15)
[2021-05-20] MEDS ORDERED: methylPREDNISolone SOD SUCC 125 MG/2 ML VL IV ONE (03:15)
[2021-05-20] MEDS ORDERED: diphenhdrAMINE HCL 50 MG/1 ML VL IV ONE (03:15)
[2021-05-20 08:42] VITALS: BP 118/88
[2021-05-20] MEDS ORDERED: methylPREDNISolone SOD SUCC 125 MG/2 ML VL IM ONE (08:45)
[2021-05-20] MEDS ORDERED: diphenhdrAMINE HCL 50 MG/1 ML VL IM ONE (08:45)
[2021-05-20] MEDS ORDERED: ALBUTEROL SULF 2.5 MG/0.5ML(0.5%) NEB SOLN NEB ONE (09:00)
[2021-05-20] MEDS ORDERED: ALBUTEROL SULF 2.5 MG/0.5ML(0.5%) NEB SOLN ONE (09:02)
== END 2021-05-20 10:02 | disposition home or self-care (01) ==
LOC: ER 21:45 → EDBD 21:45 → ER 05-20 09:48
DX: T78.40XA Allergy, unspecified, initial encounter (principal); J45.909 Unspecified asthma, uncomplicated; Z79.899 Other long term (current) drug therapy; Z88.8 Allergy status to other drugs, medicaments and biological substances; Z91.012 Allergy to eggs; Z91.010 Allergy to peanuts; Z20.822 Contact with and (suspected) exposure to COVID-19; Y92.89 Other specified places as the place of occurrence of the external cause
CPT/HCPCS: 36415; 87426; 94640; 96372; 96374; 99284; J1200; J2930

== ENCOUNTER 2021-11-25 21:08 | Emergency (ER) | payer OTHER ==
[~2021-11-25] VITALS: Ht 170.2 cm; Wt 68.0 kg
[2021-11-25 23:52] LABS: Basophils # (auto) 0 10 ^3/uL (0-0.2); Basophils % (auto) 0.3 % (0.0-2.0); Eosinophils # (auto) 0 10 ^3/uL (0-0.8); Hematocrit 41.1 % (36.0-46.0); Hemoglobin 13.5 g/dL (12.2-16.2); Lymphocytes # (auto) 0.5 10 ^3/uL (0.4-5.4); Lymphocytes % (auto) 7.1 % (10.0-50.0); Mean Corpuscular Hgb Conc. 32.9 g/dL (32.0-36.0); Mean Corpuscular Volume 94.1 fL (80.0-100.0); Monocytes # (auto) 0.2 10 ^3/uL (0-1.3); Monocytes % (auto) 3.6 % (0.0-12.0); Neutrophils # (auto) 6.1 10 ^3/uL (1.6-8.6); Red Blood Cells 4.37 10^6/uL (4.0-5.20); Red Cell Distribution Width 15.5 % (11.8-14.3); White Blood Cell 6.9 10^3/uL (4.4-10.8)
[2021-11-26 00:14] LABS: Alanine Aminotransferase 54 U/L (13-56); Albumin 3.6 g/dL (3.4-5.0); Anion Gap 7 (5-15); Aspartate Aminotransferase 7 U/L (15-37); Blood Urea Nitrogen 17 mg/dL (7-18); Calcium 8.5 mg/dL (8.5-10.1); Carbon Dioxide 29 mmol/L (21-32); Chloride 104 mmol/L (98-107); GFR African American 123 mL/min; GFR Non-African American 102 mL/min; Glucose 147 mg/dL (74-106); Magnesium 2.3 mg/dL (1.6-2.6); Potassium 4.2 mmol/L (3.5-5.1); Sodium 140 mmol/L (136-145)
[2021-11-26 00:17] LABS: Alkaline Phosphatase 43 U/L (45-117); Bilirubin, Total 0.6 mg/dL (0.2-1.0); Total Protein 6.2 g/dL (6.4-8.2)
[2021-11-26 00:23] LABS: Beta HCG, Quantitative < 1 mlU/mL (1-3); CRP High Sensitivity < 0.02 mg/dL (< 0.3); Thyroid Stimulating Hormone 0.33 uIU/mL (0.358-3.74)
[2021-11-26] MEDS ORDERED: ONDANSETRON HCL 4 MG/2 ML VIAL IV ONE ×2 (01:15→04:45)
[2021-11-26] MEDS ORDERED: ACETAMINOPHEN 325 MG TAB PO ONE (01:15)
[2021-11-26] MEDS ORDERED: NITROGLYCERIN 0.4 MG SL TAB SL ONE (01:15)
[2021-11-26 02:35] LABS: Urine Amorphous Crystal FEW /hpf (None Seen); Urine Bacteria MANY /hpf (None Seen); Urine Blood Negative /uL (Negative); Urine Mucus FEW (None Seen); Urine Specific Gravity 1.011 (1.001-1.035); Urine WBC <1 /hpf (0 - 5)
[2021-11-26] MEDS ORDERED: HYDROcodone-ACET 5/325MG TAB PO ONE (04:45)
[2021-11-26 09:00] VITALS: BP 104/73
[2021-11-26] MEDS ORDERED: HEPARIN 1,000 UNITS/ml 1ML VIAL ONE (10:00)
== END 2021-11-26 10:25 | disposition left against medical advice (07) ==
LOC: ER 21:08
DX: R07.89 Other chest pain (principal); J45.909 Unspecified asthma, uncomplicated; Z86.2 Personal history of diseases of the blood and blood-forming organs and certain disorders involving the immune mechanism; Z79.899 Other long term (current) drug therapy; Z88.8 Allergy status to other drugs, medicaments and biological substances; Z91.010 Allergy to peanuts; Z91.012 Allergy to eggs; Z20.822 Contact with and (suspected) exposure to COVID-19
CPT/HCPCS: 36415; 71045; 71250; 80053; 81001; 83605; 83735; 83880; 84443; 84484; 84702; 85025; 85379; 86141; 87426; 93005; 96374; 96375; 96376; 99285; J1642; J1644; J2405

== ENCOUNTER 2022-03-13 11:30 | Emergency (ER) | payer OTHER ==
[~2022-03-13] VITALS: Ht 167.6 cm; Wt 79.0 kg
[2022-03-13] MEDS ORDERED: ALBUTEROL SULF 2.5 MG/0.5ML(0.5%) NEB SOLN NEB ONE (12:00)
[2022-03-13] MEDS ORDERED: ALBUTEROL SULF 2.5 MG/0.5ML(0.5%) NEB SOLN ONE (12:01)
[2022-03-13] MEDS ORDERED: methylPREDNISolone SOD SUCC 125 MG/2 ML VL IV ONE ×2 (12:15→13:00)
[2022-03-13] MEDS ORDERED: LORazepam 2MG/ML-1ML VIAL IV ONE (13:00)
[2022-03-13 13:02] LABS: Basophils # (auto) 0 10 ^3/uL (0-0.2); Basophils % (auto) 0.4 % (0.0-2.0); Eosinophils # (auto) 0.2 10 ^3/uL (0-0.8); Eosinophils % (auto) 2.1 % (0.0-7.0); Hematocrit 38.8 % (36.0-46.0); Hemoglobin 13.5 g/dL (12.2-16.2); Lymphocytes % (auto) 22.8 % (10.0-50.0); Mean Corpuscular Hemoglobin 31.5 pg (28.0-32.0); Mean Corpuscular Hgb Conc. 34.7 g/dL (32.0-36.0); Mean Corpuscular Volume 90.8 fL (80.0-100.0); Monocytes # (auto) 0.6 10 ^3/uL (0-1.3); Monocytes % (auto) 7.4 % (0.0-12.0); Neutrophils # (auto) 5.8 10 ^3/uL (1.6-8.6); Neutrophils % (auto) 67.3 % (37.0-80.0); Red Blood Cells 4.27 10^6/uL (4.0-5.20); Red Cell Distribution Width 12.7 % (11.8-14.3); White Blood Cell 8.7 10^3/uL (4.4-10.8)
[2022-03-13] MEDS ORDERED: DexAMETHasone SOD PHOS 10MG/1ML VIAL INJ IM ONE (14:30)
[2022-03-13 14:42] LABS: Albumin 3.7 g/dL (3.4-5.0); BUN/Creatinine Ratio 6.8; Calcium 8.2 mg/dL (8.5-10.1); Potassium 3.7 mmol/L (3.5-5.1)
[2022-03-13 14:45] LABS: Bilirubin, Total 0.6 mg/dL (0.2-1.0); Total Protein 6.5 g/dL (6.4-8.2)
[2022-03-13 16:58] VITALS: BP 123/77
[2022-03-13] MEDS ORDERED: HEPARIN SODIUM (PORCINE) 5000 UNITS/ML 1ML VIAL IV ONE (17:15)
== END 2022-03-13 17:34 | disposition home or self-care (01) ==
LOC: ER 11:30
DX: T78.40XA Allergy, unspecified, initial encounter (principal); J45.909 Unspecified asthma, uncomplicated; Z86.2 Personal history of diseases of the blood and blood-forming organs and certain disorders involving the immune mechanism; Z79.899 Other long term (current) drug therapy; Z88.8 Allergy status to other drugs, medicaments and biological substances; Z91.010 Allergy to peanuts; Z91.012 Allergy to eggs; Y92.89 Other specified places as the place of occurrence of the external cause
CPT/HCPCS: 36415; 70360; 71045; 80053; 83880; 84484; 85025; 93005; 94644; 96372; 96374; 96375; 96376; 99285; J1100; J1644; J2060; J2930